=== PATIENT | female | born 1955 | race Caucasian/White ===

== ENCOUNTER 2023-04-19 13:13 | Outpatient (OUT) | payer MEDICARE, OTHER, SELFPAY ==
--- NOTE | 2023-04-19 13:18 | XR_ITS ---
The [address] [address] Patient Name: CHELI BARAKAT MRN: [id number] date: 1955 Sex: F Assigned Patient Location: [facility] Current Patient Location: [facility] Accession/Order Number: [id number] Exam Date: 04/19/2023 13:18 Report Date: 04/19/2023 15:08 At the request of: AMBER DOYLE Procedure: XR foot RT min 3V EXAM: XR foot RT min 3V HISTORY: RIGHT FOOT PAIN COMPARISON: 02/17/2020 TECHNIQUE: 3 views of the right foot were obtained. FINDINGS: There is a comminuted and slightly impacted fracture involving the distal aspect of the proximal phalanx of the great toe. Fracture lines extend to the articular surface with a significant gap of 3 mm in the articular surface. There is eccentric narrowing of the interphalangeal joint of the great toe. There is mild osseous healing present, and the fracture lines remain visible. Mild degenerative changes are seen at the first metatarsophalangeal joint. Remainder the joint spaces are relatively intact. An osteophyte arises from the plantar aspect of the calcaneus. IMPRESSION: There is a comminuted and slightly impacted fracture involving the distal aspect of the proximal phalanx of the great toe. Fracture lines and fracture fragments involve the articular surface. There is eccentric narrowing of the joint space, with evidence of mild osseous healing. Osseous healing is incomplete, indicating delayed osseous healing. The overall appearance of the foot is otherwise unchanged. Electronically authenticated by: SUNNY ROY Date: 04/19/2023 15:08
== END 2023-04-19 13:14 | disposition home or self-care (01) ==
LOC: RAD 13:13
PROVIDERS: Visit Provider Physician Assistant
DX: S92.411D Displaced fracture of proximal phalanx of right great toe, subsequent encounter for fracture with routine healing (principal)
CPT/HCPCS: 73630

== ENCOUNTER 2023-06-08 14:16 | Outpatient (OUT) | payer MEDICARE, OTHER, SELFPAY ==
--- NOTE | 2023-06-08 | XR_ITS ---
The [address] [address] Patient Name: CHELI BARAKAT MRN: [id number] date: 1955 Sex: F Assigned Patient Location: [facility] Current Patient Location: [facility] Accession/Order Number: [id number] Exam Date: 06/08/2023 14:30 Report Date: 06/08/2023 22:32 At the request of: SUNNY MENDEZ Procedure: XR foot LT min 3V PROCEDURE: XR foot LT min 3V COMPARISON: None. HISTORY: RIGHT FOOT PAIN FINDINGS: BONES:No acute fracture or dislocation. Contour deformity consistent with remote healed fracture head of the first proximal phalanx. Moderate enthesopathic spurring plantar calcaneus. Mild degenerative changes of the midfoot SOFT TISSUES:Negative. No visible soft tissue swelling. EFFUSION:None visible. OTHER: Negative. XR/XR foot LT min 3V IMPRESSION: Degenerative and remote posttraumatic changes Electronically authenticated by: JOANN BECKFORD Date: 06/08/2023 22:32
== END 2023-06-08 14:17 | disposition home or self-care (01) ==
LOC: RAD 14:16
PROVIDERS: Visit Provider Podiatrist Foot & Ankle Surgery
DX: M79.671 Pain in right foot (principal)
CPT/HCPCS: 73630

== ENCOUNTER 2023-07-20 07:26 | Outpatient (OUT) | payer MEDICARE, OTHER, SELFPAY ==
--- NOTE | 2023-07-20 | XR_ITS ---
The [address] [address] Patient Name: CHELI BARAKAT MRN: [id number] date: 1955 Sex: F Assigned Patient Location: [facility] Current Patient Location: [facility] Accession/Order Number: [id number] Exam Date: 07/20/2023 15:42 Report Date: 07/20/2023 17:12 At the request of: SUNNY MENDEZ Procedure: XR foot RT min 3V EXAM: XR foot RT min 3V HISTORY: RIGHT FOOT GREAT TOE FX COMPARISON: 04/19/2023 TECHNIQUE: 3 views of the right foot FINDINGS: Interval healing of proximal first phalangeal neck fracture with appropriate alignment. No acute fracture or dislocation. The soft tissue is unremarkable. There is a small heel spur. There is an os trigonum. XR/XR foot RT min 3V IMPRESSION: Interval healing of proximal first phalangeal neck fracture with appropriate alignment. Electronically authenticated by: FRANKLIN LOVE Date: 07/20/2023 17:12
== END 2023-07-20 07:27 | disposition home or self-care (01) ==
LOC: RAD 07-22 07:26
PROVIDERS: Visit Provider Podiatrist Foot & Ankle Surgery
DX: S92.411D Displaced fracture of proximal phalanx of right great toe, subsequent encounter for fracture with routine healing (principal)
CPT/HCPCS: 73630

== ENCOUNTER 2023-11-26 07:28 | Emergency (ER) | payer MEDICARE, OTHER, SELFPAY ==
[2023-11-26 07:32] VITALS: BP 140/81; PULSE 89; RESP 15; TEMP 36.4; O2SAT 98; BMI 40.2
--- NOTE | 2023-11-26 07:45 | XR_ITS ---
The [address] [address] Patient Name: CHELI BARAKAT MRN: [id number] date: 1955 Sex: F Assigned Patient Location: ER Current Patient Location: ED.MAIN Accession/Order Number: [id number] Exam Date: 11/26/2023 08:00 Report Date: 11/26/2023 09:07 At the request of: AVA PRASAD Procedure: XR shoulder RT min 2V PROCEDURE: XR shoulder RT min 2V DATE: 11/26/2023 8:00 AM EST COMPARISONS: None CLINICAL INDICATION: pain FINDINGS: There is no evidence of fractures or other acute osseous abnormalities. There is evidence of some bone demineralization. There is mild to moderate acromioclavicular degenerative change. There is no definite glenohumeral degenerative change. XR/XR shoulder RT min 2V IMPRESSION: Right shoulder radiographs show no evidence of acute abnormalities. Findings as discussed above. Electronically authenticated by: GEETHA MARIA Date: 11/26/2023 09:07
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
== END 2023-11-26 09:31 | disposition home or self-care (01) ==
PROVIDERS: Emergency Provider Emergency Medicine; PCP Internal Medicine
DX: S40.011A Contusion of right shoulder, initial encounter (principal); Y04.8XXA Assault by other bodily force, initial encounter
CPT/HCPCS: 73030; 99283

== ENCOUNTER 2024-01-12 12:08 | Outpatient (OUT) | payer MEDICARE, OTHER, SELFPAY ==
--- NOTE | 2024-01-12 | MR_ITS ---
The [address] [address] Patient Name: CHELI BARAKAT MRN: [id number] date: 1955 Sex: F Assigned Patient Location: MRI Current Patient Location: MRI Accession/Order Number: [id number] Exam Date: 01/12/2024 13:00 Report Date: 01/12/2024 14:04 At the request of: RISA FITZPATRICK Procedure: MR shoulder RT wo con MR shoulder RT wo con, 01/12/2024 1:00 PM EDT INDICATION: right shoulder pain M25.511 COMPARISON: Prior x-ray of the right shoulder dated 11/26/2023 TECHNIQUE: Multiplanar and multisequential MR images of the right shoulder were obtained without contrast. FINDINGS: There are moderate hypertrophic degenerative changes of AC joint. There is no os acromiale. No Hill-Sachs is noted. No acute fracture or dislocation is noted. The quadrilateral space and supraspinous notch are unremarkable. There is complete tear of the supraspinatus and infraspinatus with retraction of tendon to the level of AC joint and posterior to the glenoid respectively. T2 prolongation within the supraspinatus and infraspinatus muscle bulk likely due to contusion. The T2 prolongation within the insertional portions of subscapularis with 8 mm articular surface tear is noted. The long head of biceps shows intra-articular tendinosis The teres minor is unremarkable. Mild fatty muscle atrophy is supraspinatus and infraspinatus is noted. The labrum shows moderate degenerative changes. Mild degenerative changes of the glenohumeral joint are noted. There is increased intra articular joint effusion with extension to the subacromial subdeltoid bursa. MR/MR shoulder RT wo con IMPRESSION: Complete tear of the supraspinatus and infraspinatus with retraction of the tendons. Insertional tendinosis of subscapularis with high-grade articular surface partial tear. Tendinosis of the intra-articular portion of the long head of biceps. Electronically authenticated by: JONATHAN PRUETT Date: 01/12/2024 14:04
--- OUTSIDE RECORDS SUMMARY | 2024-01-12 12:16 | XMS_ITS | CCD ---
Author Organization [employer] Care Team Providers Care Locker Attendant Name Role Phone MD Lloyd Walsh Attending Provider DO Tirso Barney Primary Care Provider Lloyd Walsh Attending Unavailable Lloyd Walsh Admitting Unavailable Tirso Barney Primary Care Unavailable Gerson Ochoa Unavailable Lloyd Walsh Unavailable Tirso Barney Unavailable AMBER DOYLE Attending Unavailable AMBER DOYLE Admitting Unavailable ANALY, DR JOANN Mohr Consulting Unavailable AMARI, DR LORD Primary Care Unavailable AMBER DOYLE Consulting Unavailable AMARI, DR LORD Primary Care Unavailable BALL, DR LORD Attending Unavailable BALL, DR LORD Admitting Unavailable HAY ., DR CAMPOS Attending Unavailable HAY ., DR CAMPOS Admitting Unavailable BALL, DR LORD Primary Care Unavailable GRECHNY ., ROYCE PALMA Consulting Unavailabl e SHAVONNE ., DR CAMPOS Consulting Unavailable JULIO, GURPREET Consulting Unavailable SUNNY MENDEZ Attending Unavailable SUNNY MENDEZ Admitting Unavailable ANDREA, DR MAURILIO Masterson Consulting Unavailable AMARI, DR LORD Primary Care Unavailable ANDREA, SUNNY Armando Consulting Unavailable AMARI, DR LORD Primary Care Unavailable AMARI, DR LORD Consulting Unavailable AMARI, DR LORD Attending Unavailable BALL, DR LORD Admitting Unavailable ZIEBER, DR MAURILIO Masterson Consulting Unavailable AMARI, DR LORD Primary Care Unavailable AMARI, DR LORD Consulting Unavailable AMARI, DR LORD Attending Unavailable BALL, DR LORD Admitting Unavailable ANALY, DR JOANN Mohr Consulting Unavailable AMARI, DR LORD Consulting Unavailable AMARI, DR LORD Primary Care Unavailable AMARI, DR LORD Attending Unavailable BALL, DR LORD Admitting Unavailable WEST, DR JOANN Mohr Consulting Unavailable AMARI, DR LORD Attending Unavailable BALL, DR LORD Admitting Unavailable BALL, DR LORD Primary Care Unavailable WEST, DR JOANN Mohr Consulting Unavailable ANDREA, SUNNY Armando Attending Unavailable SUNNY MENDEZ Admitting Unavailable BALL, DR LORD Primary Care Unavailable SUNNY MENDEZ Consulting Unavailable AMARI, DR LORD Consulting Unavailable AMARI, DR LORD Admitting Unavailable AMARI, DR LORD Attending Unavailable AMARI, DR LORD Primary Care Unavailable Allergies Allergy Classification Reported Allergen(s) Allergy Type Date of Onset Reaction(s) Facility (3 sources) Esomeprazole Drug Allergy 3 Unknown [facility] Other (10 sources) Lisinopril Drug Allergy Unknown [facility] Other (10 sources) NexIUM *ULCER DRUGS/ANTISPASMO DICS/ANTICHOLINE RGIC Propensity to adverse reactions Unknown [facility] Other (3 sources) Allergies Reconciled Propensity to adverse reactions Unknown [facility] Other (3 sources) patient allergy list reviewed by nurse or physicia Propensity to adverse reactions Comment:Done [facility] Other Medications Current Medications Medication Drug Class(es) Dates Sig (Normalized) Sig (Original) acetaminophen 325 mg / HYDROcodone bitartrate 5 mg oral tablet (1 source) Opioid Agonist Start: 11-30-2023 take 1 tablet by mouth three times daily as needed for pain HYDROcodone-Jonh taminophen 5-325 MG 1 tablet Orally tid as needed for pain for 7 days Nov, Active cholecalciferol 1.25 mg oral capsule (11 sources) Vitamin D take 1 capsule by mouth every week Vitamin D3 1.25 MG (83856 UT) TAKE 1 CAPSULE BY MOUTH ONE TIME PER WEEK for 90 Active hydroCHLOROthiazide 12.5 mg / lisinopril 10 mg oral tablet (18 sources) Thiazide Diuretic, Angiotensin Converting Enzyme Inhibitor take 1 tablet by mouth once daily Lisinopril-hydr oCHLOROthiazide 10-12.5 MG TAKE 1 TABLET BY MOUTH EVERY DAY Active Lisinopril-hydro CHLOROthiazide 10-12.5 MG Oral Active phentermine hydrochloride 37.5 mg oral tablet (10 sources) Sympathomimetic Amine Anorectic Start: 09-12-2023 take 1 tablet by mouth once daily before breakfast Adipex-P 37.5 MG 1 tablet before breakfast Orally Once a day for 30 days Aug, Active Start: 08-04-2023 take 1 tablet by nidia th once daily before breakfast Adipex-P 37.5 MG 1 tablet before breakfast Orally Once a day for 30 days Jul, Active Start: 06-30-2023 take 1 tablet by nidia th once daily before breakfast Adipex-P 37.5 MG 1 tablet before breakfast Orally Once a day for 30 days Jun, Active Start: 06-21-2023 take 1 tablet by nidia once daily before breakfast Adipex-P 37.5 MG 1 tablet before breakfast Orally Once a day for 30 days start 05/16May, Active Start: 04-13-2023 take 1 tablet by nidia once daily before breakfast Adipex-P 37.5 MG 1 tablet before breakfast Orally Once a day for 30 days Mar, Active Start: 01-11-2023 take 1 tablet by nidia once daily before breakfast Adipex-P 37.5 MG 1 tablet before breakfast Orally Once a day for 30 days Dec, Active polysaccharide iron complex 150 mg oral capsule (20 sources) take 1 capsule by mouth every other day as needed Polysaccharide Iron Complex 150 MG TAKE 1 CAPSULE BY MOUTH EVERY OTHER DAY for 90 Not-Taking/PRN take 1 capsule by mo [facility] every twenty-four hours Ferrex 150 150 MG 1 capsule Orally Once a day Active traMADol hydrochloride 50 mg oral tablet (18 sources) Opioid Agonist Start: 10-10-2023 take 1 tablet by mouth every six hours as needed for pain traMADol HCl 50 MG 1 tablet Oral every 6 hours PRN pain start 10/10 w/ 2RF Sep, Active Start: 07-12-2023 take 1 tablet by nidia th every six hours as needed for pain traMADol HCl 50 MG 1 tablet Oral every 6 hours PRN pain for 30 days start 07/12 w/ 2rf Jun, Active Start: 04-04-2023 take 1 tablet by nidia th every six hours as needed for pain traMADol HCl 50 MG 1 tablet Oral every 6 hours PRN pain start 04/04, 2rf Mar, Active Start: 12-12-2022 take 1 tablet by nidia th every six hours as needed for pain traMADol HCl 50 MG 1 tablet Oral every 6 hours PRN pain p/u 12/12, start 12/14Nov, Active traMADol HCl 50 MG Oral for 30 Days Active Vitamin D3 (12 sources) Vitamin D3 Activ e Completed/Discontinued Medications Medication Drug Class(es) Dates Sig (Normalized) Sig (Original) clonazePAM 1 mg oral tablet (18 sources) Benzodiazepine clonazePAM 1 MG Oral for 30 Days Not-Taking/PRN diazePAM 10 mg oral tablet (18 sources) Benzodiazepine Start: 06-22-2022 diazePAM 10 MG Take 1 tablet 30 mins prior to MRI and 1 tablet at the time of MRI if needed Orally BID for 1 days May, Not-Taking/PRN lamoTRIgine 100 mg oral tablet (20 sources) Mood Stabilizer, Anti-epileptic Agent take 1 tablet by mouth every twenty-four hours LaMICtal 100 MG 1 tablet Orally Once a day Not-Taking/PRN venlafaxine 75 mg oral tablet (18 sources) Serotonin and Norepinephrine Reuptake Inhibitor take 1 tablet by mouth every twenty-four hours Venlafaxine HCl 75 MG 1 tablet with food Orally Once a day Not-Taking/PRN ziprasidone 20 mg oral capsule (18 sources) Atypical Antipsychotic take 1 capsule by mouth every twelve hours Geodon 20 MG 1 capsule with food Orally Twice a day Not-Taking/PRN zolpidem tartrate 12.5 mg extended release oral tablet (20 sources) gamma-Aminobutyric Acid-ergic Agonist take 1 tablet by mouth every twenty-four hours Ambien CR 12.5 MG 1 tablet at bedtime as needed Orally Once a day Not-Taking/PRN Problems Active Problems Problem Classification Problem Date Documented Da te Episodic/Chronic Anxiety disorders (3 sources) Generalized anxiety disorder; Translations: [Generalized anxiety disorder] Chronic Disorders of lipid metabolism (16 sources) Hypercholesterolemia ; Translations: [Pure hypercholesterolemia , unspecified] Onset: 10-28-2022 Chronic Esophageal disorders (13 sources) Gastro-esophageal reflux disease with esophagitis; Translations: [Gastroesophageal reflux disease with esophagitis without hemorrhage] Chronic Esophageal disorders (4 sources) Esophageal disorders; Translations: [Gastro-esophageal reflux disease with esophagitis, without bleeding] Essential hypertension (20 sources) Essential hypertension; Translations: [Essential (primary) hypertension] Onset: 10-22-2022 Chronic Fracture of lower limb (9 sources) Displaced fracture of proximal phalanx of right great toe, initial encounter for closed fracture; Translations: [Displaced fracture of proximal phalanx of right great toe, subsequent encounter for fracture with routine healing] Onset: 10-10-2022 Episodic Immunizations and screening for infectious disease (3 sources) Vaccination given; Translations: [Encounter for immunization] Episodic Miscellaneous mental health disorders (3 sources) Primary insomnia; Translations: [Primary insomnia] Chronic Mood disorders (20 sources) Recurrent major depression in remission; Translations: [Major depressive disorder, recurrent, in partial remission] Onset: 10-24-1959 Chronic Nutritional deficiencies (15 sources) Vitamin D deficiency; Translations: [Vitamin D deficiency, unspecified] Chronic Nutritional deficiencies (12 sources) Iron deficiency; Translations: [Iron deficiency] Episodic Osteoarthritis (3 sources) Idiopathic osteoarthritis; Translations: [Unilateral primary osteoarthritis, right knee] Onset: 01-19-2019 Chronic Osteoporosis (18 sources) Senile osteoporosis; Translations: [Age-related osteoporosis without current pathological fracture] Chronic Other aftercare (11 sources) H/O: high risk medication; Translations: [Other buttermaker continuous churn (current) drug therapy] Episodic Other aftercare (2 sources) Other buttermaker continuous churn (current) drug therapy; Translations: [OTH ARC AND GAS WELDER CURRENT DRUG THERAPY] Onset: 10-28-2022 Episodic Other aftercare (3 sources) Long-term current use of drug therapy; Translations: [Other buttermaker continuous churn (current) drug therapy] Episodic Other bone disease and musculoskeletal deformities (11 sources) Osteopenia; Translations: [Other specified disorders of bone density and structure, multiple sites] Episodic Other bone disease and musculoskeletal deformities (3 sources) Disorder of bone; Translations: [Other specified disorders of bone density and structure, multiple sites] Episodic Other bone disease and musculoskeletal deformities (1 source) Other specified disorders of bone density and structure, multiple sites; Translations: [Osteopenia of multiple sites] Episodic Other congenital anomalies (3 sources) Congenital spondylolysis of lumbosacral region; Translations: [Congenital spondylolysis, lumbosacral region] Onset: 01-23-2019 Chronic Other congenital anomalies (3 sources) Congenital anomaly of spine; Translations: [Other congenital malformations of spine, not associated with scoliosis] Onset: 02-28-2019 Chronic Other connective tissue disease (18 sources) Synovial cyst of lumbar spine; Translations: [Other bursal cyst, other site] Episodic Other connective tissue disease (6 sources) Other bursal cyst, other site; Translations: [Bursal cyst] Episodic Other connective tissue disease (4 sources) Pain in right foot; Translations: [PAIN IN RIGHT FOOT] Onset: 02-16-2023 Episodic Other connective tissue disease (3 sources) Pain in limb; Translations: [Pain in soft tissues of limb] Episodic Other gastrointestinal disorders (3 sources) Intestinal malabsorption; Translations: [Intestinal malabsorption, unspecified] Chronic Other gastrointestinal disorders (12 sources) History of bariatric surgical procedure; Translations: [Bariatric surgery status] Episodic Other gastrointestinal disorders (3 sources) Diarrhea; Translations: [Diarrhea, unspecified] Episodic Other injuries and conditions due to external causes (3 sources) History of fall; Translations: [History of falling] Episodic Other lower respiratory disease (3 sources) Chronic cough; Translations: [Chronic cough] Episodic Other nervous system disorders (18 sources) Chronic pain; Translations: [Other chronic pain] Chronic Other nervous system disorders (18 sources) Cervical myelopathy; Translations: [Disease of spinal cord, unspecified] Chronic Other nervous system disorders (2 sources) Other chronic pain Chronic Other nervous system disorders (12 sources) Meralgia paresthetica; Translations: [Meralgia paresthetica, right lower limb] Chronic Other nervous system disorders (1 source) Meralgia paresthetica, right lower limb Chronic Other nervous system disorders (11 sources) Paresthesia; Translations: [Paresthesia of skin] Episodic Other non-traumatic joint disorders (3 sources) Shoulder joint pain; Translations: [Pain in left shoulder] Episodic Other nutritional; endocrine; and metabolic disorders (12 sources) Morbid obesity; Translations: [Morbid (severe) obesity due to excess calories] Chronic Other nutritional; endocrine; and metabolic disorders (9 sources) Morbid (severe) obesity due to excess calories Chronic Other nutritional; endocrine; and metabolic disorders (11 sources) Severe obesity; Translations: [Morbid (severe) obesity due to excess calories] Chronic Other nutritional; endocrine; and metabolic disorders (14 sources) Body mass index 40+ - severely obese; Translations: [Body mass index (BMI) 40.0-44.9, adult] Onset: 02-16-2016 Chronic Other nutritional; endocrine; and metabolic disorders (4 sources) Body mass index (BMI) 40.0-44.9, adult Chronic Other nutritional; endocrine; and metabolic disorders (3 sources) Obesity; Translations: [Obesity, unspecified] Chronic Other nutritional; endocrine; and metabolic disorders (6 sources) Obese class II; Translations: [Body mass index 39.0-39.9, adult] Onset: 02-16-2016 Chronic Other screening for suspected conditions (not mental disorders or infectious disease) (6 sources) Encounter for screening mammogram for malignant neoplasm of breast; Translations: [ENC SCR MAMMO MALIG NEOPLASM BREAST] Onset: 10-21-2022 Episodic Other upper respiratory infections (6 sources) Acute maxillary sinusitis; Translations: [Acute maxillary sinusitis, unspecified] Episodic Residual codes; unclassified (3 sources) Postmenopausal state; Translations: [Asymptomatic menopausal state] Episodic Spondylosis; intervertebral disc disorders; other back problems (20 sources) Lumbosacral spondylosis without myelopathy; Translations: [Other spondylosis with radiculopathy, lumbar region] Onset: 03-18-2022 Chronic Spondylosis; intervertebral disc disorders; other back problems (20 sources) Radiculopathy, lumbar region; Translations: [Low back pain] Onset: 04-21-2015 Resolved: 05-07-2022 Episodic Sprains and strains (18 sources) Strain of biceps brachii muscle and/or tendon; Translations: [Strain of muscle, fascia and tendon of other parts of biceps, left arm, initial encounter] Onset: 02-06-2018 Episodic Systemic lupus erythematosus and connective tissue disorders (15 sources) Sjogren's syndrome; Translations: [Sicca syndrome with keratoconjunctivitis ] Chronic Unclassified (4 sources) LOW BACK PAIN, UNSPECIFIED; Translations: [LOW BACK PAIN, UNSPECIFIED] Onset: 03-18-2022 Unclassified (3 sources) Dietary management surveillance; Translations: [Dietary surveillance and counseling] Onset: 02-06-2018 Past or Other Problems Problem Classification Problem Date Documented Da te Episodic/Chronic E Codes: Fall (3 sources) Accidental fall ; Translations: [Fall (on)(from) sidewalk curb, initial encounter] Onset: 01-20-2018 Episodic E Codes: Overexertion (1 source) Other slipping, tripping and stumbling without falling, initial encounter; Translations: [OTH SLIP TRIP STUMBL NO FALL INIT] Onset: 10-10-2022 Episodic Genitourinary symptoms and ill-defined conditions (6 sources) Dysuria; Translations: [Dysuria] Onset: 09-11-2014 Episodic Malaise and fatigue (3 sources) Malaise and fatigue; Translations: [Other malaise and fatigue] Onset: 12-10-2015 Episodic Nonspecific chest pain (3 sources) Chest pain; Translations: [Chest pain, unspecified] Onset: 10-23-2015 Episodic Other connective tissue disease (3 sources) Pain in right toe(s); Translations: [PAIN IN RIGHT TOES] Onset: 10-06-2022 Episodic Other gastrointestinal disorders (3 sources) Abnormal feces; Translations: [Other fecal abnormalities] Resolved: 09-27-2022 Episodic Other lower respiratory disease (3 sources) Dyspnea; Translations: [Other forms of dyspnea] Onset: 10-23-2015 Episodic Other non-traumatic joint disorders (3 sources) Pain in right hip joint; Translations: [Pain in right hip] Onset: 10-18-2018 Episodic Other non-traumatic joint disorders (3 sources) Arthralgia of the lower leg; Translations: [Pain in joint, lower leg] Onset: 02-19-2019 Episodic Other non-traumatic joint disorders (3 sources) Hand joint pain; Translations: [Pain in joint, hand] Onset: 07-24-2018 Episodic Other nutritional; endocrine; and metabolic disorders (3 sources) Excessive thirst; Translations: [Polydipsia] Onset: 09-11-2014 Episodic Other nutritional; endocrine; and metabolic disorders (3 sources) Abnormal weight gain; Translations: [Abnormal weight gain] Onset: 09-11-2014 Episodic Residual codes; unclassified (1 source) Family history of malignant neoplasm of bladder; Translations: [FAM HX MALIGNANT NEOPLASM BLADDER] Onset: 10-28-2022 Episodic Residual codes; unclassified (3 sources) Insomnia; Translations: [Insomnia, unspecified] Onset: 09-11-2014 Episodic Superficial injury; contusion (6 sources) Contusion of right hand; Translations: [Contusion of right hand, initial encounter] Onset: 01-20-2018 Episodic Unclassified (1 source) LOW BACK PAIN, UNSPECIFIED; Translations: [LOW BACK PAIN, UNSPECIFIED] Onset: 03-16-2022 Unclassified (3 sources) Other specified cough; Translations: [Other specified cough] Resolved: 01-12-2022 Results Test Name Value Interpretation Reference Range Facil ity CBC AUTO DIFFon 12-30-2022 BASO # 0.1 103/ul Normal 0.0-0.1 [facility] Comment on above: Performed By: #### C BC #### [facility] [address] [place] [address] Dr. Shea Howell Basophils/100 WBC (Bld) 1.0 % Normal 0.2-2.0 [facility] Comment on above: Performed By: #### C BC #### [facility] [address] [place] [address] Dr. Shea Howell EO # 0.1 103/ul Normal 0.0-0.7 [facility] Comment on above: Performed By: #### C BC #### [facility] [address] [place] [address] Dr. Shea Howell Eosinophils/100 WBC (Bld) 1.2 % Normal 0.9-7.0 [facility] Comment on above: Performed By: #### C BC #### [facility] [address] [place] [address] Dr. Shea Howell Erythrocyte distribution width (RBC) [Ratio] 13.5 % Normal 11.0-15.0 [facility] Comment on above: Performed By: #### C BC #### [facility] [address] [place] [address] Dr. Shea Howell Hematocrit (Bld) [Volume fraction] 41.3 % Normal 36.0-48.0 [facility] Comment on above: Performed By: #### C BC #### [facility] [address] [place] [address] Dr. Shea Howell Hemoglobin (Bld) [Mass/Vol] 13.9 g/dL Normal 12.0-16.0 [facility] Comment on above: Performed By: #### C BC #### [facility] [address] [place] [address] Dr. Shea Howell IG # 0.02 10e3/ul Normal 0.00-0.03 [facility] Comment on above: Performed By: #### C BC #### [facility] [address] [place] [address] Dr. Shea Howell IG % 0.2 % Normal 0.0-0.5 [facility] Comment on above: Performed By: #### C BC #### [facility] [address] [place] [address] Dr. Shea Howell LYMPH # 1.8 103/ul Normal 1.2-3.8 [facility] Comment on above: Performed By: #### C BC #### [facility] [address] [place] [address] Dr. Shea Howell Lymphocytes/100 WBC (Bld) 21.4 % Normal 20.5-60.0 [facility] Comment on above: Performed By: #### C BC #### [facility] [address] [place] [address] Dr. Shea Howell MANUAL DIFF REQ NO Normal [facility] Comment on above: Performed By: #### C BC #### [facility] [address] [place] [address] Dr. Shea Howell MCH (RBC) [Entitic mass] 33.2 pg Normal 26.7-34.0 [facility] Comment on above: Performed By: #### C BC #### [facility] [address] [place] [address] Dr. Shea Howell MCHC (RBC) [Mass/Vol] 33.7 g/dL Normal 29.9-35.2 [facility] Comment on above: Performed By: #### C BC #### [facility] [address] [place] [address] Dr. Shea Howell MCV (RBC) [Entitic vol] 98.6 fL Normal 81.0-99.0 [facility] Comment on above: Performed By: #### C BC #### [facility] [address] [place] [address] Dr. Shea Howell MONO # 0.8 103/ul Normal 0.3-0.8 [facility] Comment on above: Performed By: #### C BC #### [facility] [address] [place] [address] Dr. Shea Howell Monocytes/100 WBC (Bld) 9.3 % Normal 1.7-12.0 [facility] Comment on above: Performed By: #### C BC #### [facility] [address] [address] [address] Shea Howell NEUT # 5.6 103/ul Normal 1.4-6.5 [facility] Comment on above: Performed By: #### C BC #### [facility] [address] [address] [address] Shea Howell Neutrophils/100 WBC (Bld) 66.9 % Normal 43.0-75.0 [facility] Comment on above: Performed By: #### C BC #### [facility] [address] [address] [address] Shea Howell Platelet mean volume (Bld) [Entitic vol] 9.2 fL Critically low 9.5-13.5 [facility] Comment on above: Performed By: #### C BC #### [facility] [address] [place] [address] Dr. Shea Howell PLT 353 103/ul Normal 150-450 [facility] Comment on above: Performed By: #### C BC #### [facility] [address] [place] [address] Dr. Shea Howell RBC 4.19 106/ul Critically low 4.20-5.40 [facility] Comment on above: Performed By: #### C BC #### [facility] [address] [place] [address] Dr. Shea Howell WBC 8.4 103/ul Normal 4.0-11.0 [facility] Comment on above: Performed By: #### C BC #### [facility] [address] [place] [address] Dr. Shea Howell LIPID PROFILEon 10-22-2022 CHOL-HDL RATIO NORM SEE BELOW Normal [facility] Comment on above: Result Comment: 3.3 - 4.4 LOW RISK 4.4 - 7.1 AVERAGE RISK 7.1 - 11.0 MODERATE RISK >11.0 HIGH RISK Performed By: #### B MP, LIPID #### [facility] [address] [place] [address] Dr. Shea Howell Cholesterol [Mass/Vol] 224 mg/dL Critically high <=200 [facility] Comment on above: Performed By: #### B MP, LIPID #### [facility] [address] [address] [address] Shea Howell Cholesterol in HDL [Mass/Vol] 78 mg/dL Critically high 40-60 [facility] Comment on above: Performed By: #### B MP, LIPID #### [facility] [address] [address] [address] Shea Howell Cholesterol in LDL [Mass/Vol] 109.8 mg/dL Normal [facility] Comment on above: Performed By: #### B MP, LIPID #### [facility] [address] [address] [address] Shea Howell Cholesterol.total/ Cholesterol in HDL [Mass ratio] 2.9 {ratio} Normal [facility] Comment on above: Performed By: #### B MP, LIPID #### [facility] [address] [address] [address] Shea Howell HDL NORMAL > or = 60 mg/dl - LO W CARDIOVASCULAR RISK <40 mg/dl - HIGH CARDIOVASCULAR RISK Normal [facility] Comment on above: Performed By: #### B MP, LIPID #### [facility] [address] [address] [address] Shea Howell LDL CALC NORMAL SEE BELOW Normal [facility] Comment on above: Result Comment: <100 mg/dl OPTIMAL 100 - 129 mg/dl NEAR OR ABOVE OPTIMAL 130 - 159 mg/dl BORDERLINE HIGH 160 - 189 mg/dl HIGH >190 mg/dl VERY HIGH Performed By: #### B MP, LIPID #### [facility] [address] [address] [address] Shea Howell Triglyceride [Mass/Vol] 181 mg/dL Critically high <=150 [facility] Comment on above: Performed By: #### B MP, LIPID #### [facility] [address] [address] [address] Shea Howell VLDL CALC 36.2 mg/dL Normal [facility] Comment on above: Performed By: #### B MP, LIPID #### [facility] [address] [address] [address] Shea Howell PROF CHEM 8 (BAS METB)on Anion gap [Moles/Vol] 14.7 mmol/L Normal [facility] Comment on above: Performed By: #### B MP, LIPID #### [facility] [address] [place] [address] Dr. Shea Howell Calcium [Mass/Vol] 9.4 mg/dL Normal 8.5-10.1 [facility] Comment on above: Performed By: #### B MP, LIPID #### [facility] [address] [place] [address] Dr. Shea Howell Chloride [Moles/Vol] 95 mmol/L Critically low 98-107 [facility] Comment on above: Performed By: #### B MP, LIPID #### [facility] [address] [place] [address] Dr. Shea Howell CO2 [Moles/Vol] 27.8 mmol/L Normal 21.0-32.0 [facility] Comment on above: Performed By: #### B MP, LIPID #### [facility] [address] [place] [address] Dr. Shea Howell Creatinine [Mass/Vol] 0.77 mg/dL Normal 0.55-1.02 [facility] Comment on above: Performed By: #### B MP, LIPID #### [facility] [address] [place] [address] Dr. Shea Howell EGFR-AF TOGOLESE >60 Normal >=60 [facility] Comment on above: Performed By: #### B MP, LIPID #### [facility] [address] [place] [address] Dr. Shea Howell EGFR-NON AF TOGOLESE >60 Normal >=60 [facility] Comment on above: Performed By: #### B MP, LIPID #### [facility] [address] [place] [address] Dr. Shea Howell Glucose [Mass/Vol] 111 mg/dL Critically high 74-106 [facility] Comment on above: Performed By: #### B MP, LIPID #### [facility] [address] [address] [address] Shea Howell Potassium [Moles/Vol] 4.5 mmol/L Normal 3.5-5.1 [facility] Comment on above: Performed By: #### B MP, LIPID #### [facility] [address] [address] [address] Shea Howell Sodium [Moles/Vol] 133 mmol/L Critically low 136-145 [facility] Comment on above: Performed By: #### B MP, LIPID #### [facility] [address] [address] [address] Shea Howell Urea nitrogen [Mass/Vol] 10.0 mg/dL Normal 7.0-18.0 [facility] Comment on above: Performed By: #### B MP, LIPID #### [facility] [address] [address] [address] Shea Howell Urea nitrogen/Creatinin e [Mass ratio] 13.0 mg/mg Normal [facility] Comment on above: Performed By: #### B MP, LIPID #### [facility] [address] [address] [address] Shea Howell MG MAMM SCREEN 3D IRMA CADon 10-21-2022 MG MAMM SCREEN 3D IRMA CAD Patient: EMILY SCHMITT Exam Date: 10/21/2022 : 1955 Gender:F Ordering : DR TIRSO BARNEY D.O. Admission #: [id number] Family : Order #: [id number] CLICK HERE TO VIEW EXAM RADIOLOGY REPORT PROCEDURE: MAMMOGRAM SCREENING 3D BILATERAL CAD COMPARISON: MG MAMM SCREEN IRMA W CAD, 10/04/2019. MG MAMM SCREEN 3D IRMA CAD, 07/31/2021. INDICATIONS: Screening for malignant neoplasm of breast Calculator Name NCI Breast Cancer Risk Assessment Tool 5 Year Breast Cancer Risk 1.60% Lifetime Breast Cancer Risk 5.90% Personal Breast Cancer No Personal Ovarian Cancer No Treatments None Family Cancers Father with bladder cancer at age 58. LOCATION: [facility] BREAST COMPOSITION: Scattered areas fibroglandular density. FINDINGS: DIAGNOSTIC CATEGORY 1--NEGATIVE. NO CHANGE FROM COMPARISON ASSESSMENT. Scattered benign-appearing lymph nodes are present. RIGHT BREAST: No significant suspicious finding. LEFT BREAST: No significant suspicious finding. RECOMMENDATIONS: ROUTINE MAMMOGRAM AND CLINICAL EVALUATION IN 12 MONTHS. PLEASE NOTE: A NORMAL MAMMOGRAM DOES NOT EXCLUDE THE POSSIBILITY OF BREAST CANCER. A CLINICALLY SUSPICIOUS PALPABLE LUMP SHOULD BE BIOPSIED. Dictated by: Joann Beckford MD on 10/22/2022 at 07:14 Approved by: Joann Beckford MD on 10/22/2022 at 07:16 Normal [facility] XR FOOT RT MIN 3 VIEWSon XR FOOT RT MIN 3 VIEWS EXAM: XR FOOT RT MIN 3 VIEWS HISTORY: Bone injury COMPARISON: None. TECHNIQUE: 3 views of the right foot are performed. FINDINGS: There is an acute fracture involving the distal aspect of the proximal first phalanx. The fracture is comminuted and mildly displaced, and extends to the articular surface of the interphalangeal joint. There is associated soft tissue swelling. IMPRESSION: Comminuted, mildly displaced intra-articular fracture involving the distal aspect of the proximal first phalanx. Electronically authenticated by: GURPREET KIM Date: 2022-10-06 18:26 Normal [facility] XR lumbar spine 6V w bending on 07-05-2022 XR lumbar spine 6V w bending [facility] [place] [address] [place] [address] XRay Report Signed Patient: Emily Schmitt MR#: [id number] : 1955 Acct:[id number] Age/Sex: 67 / F ADM Date: 07/05/22 Loc: [facility] Room: Type: [facility] Attending Dr: Lloyd Walsh MD Copies to: Lloyd Walsh MD Ordering Provider: Lloyd Walsh MD Date of Service: 07/05/22 XR/XR lumbar spine 6V w bending: G95.9 XR lumbar spine 6V w bending 07/05/2022 2:05 PM SIGNS AND SYMPTOMS: Low back pain, right-sided radiculopathy PROTOCOLS: Frontal, lateral, oblique, and flexion-extension views of the lumbar spine COMPARISON: 03/16/2022 FINDINGS: There is straightening of the normal lumbar lordosis. There is no evidence of fracture or subluxation. Flexion and extension view show no pathologic movement. There is mild vertebral disc height loss throughout. There is no fracture or destructive lesion. There is mild vertebral disc height loss throughout, greatest at L2-L3. This has progressed slightly when compared to the prior exam. The sacrum and sacroiliac joints are normal. There is evidence of prior cholecystectomy. Vascular calcifications are present in the pelvis. XR/XR lumbar spine 6V w bending IMPRESSION: There is straightening of the normal lumbar lordosis. This is new when compared prior exam and may be secondary to patient positioning or muscle spasm. Mild intervertebral disc height loss is noted, greatest at L2-3 showing slight interval progression. No fracture, subluxation, or pathologic movement. Impression dictated by: Brian Choe M.D.07/05/2022 7:29 PM Dictation Location: [address] [address] Transcribed By: [facility] 07/05/221928 Dictated By: Brian Choe II, MD 07/05/221926 Signed By: 07/05/221928 Normal [facility] XR pre/post mri xrayon 07-05 XR pre/post mri xray [facility] [place] [address] [place] [address] MRI Report Signed Patient: Emily Schmitt MR#: [id number] : 1955 Acct:[id number] Age/Sex: 67 / F ADM Date: 07/05/22 Loc: [facility] Room: Type: [facility] Attending Dr: Lloyd Walsh MD Copies to: Lloyd Walsh MD Ordering Provider: Lloyd Walsh MD Date of Service: 07/05/22 MR/MR cervical spine wo con: G95.9 ([id number]) XR/XR pre/post mri xray: G95.9 MR cervical spine wo con, XR pre/post mri xray 07/05/2022 12:56 PM SIGNS AND SYMPTOMS: Posterior neck pain radiating into arms bilaterally. PROTOCOL: Multiplanar multisequence MR images of the cervical spine were obtained without contrast. Lateral and bilateral oblique radiographs of the cervical spine. COMPARISON: None. FINDINGS: Radiographs of the cervical spine: There is straightening of the normal cervical lordosis. There is preservation of vertebral body heights. Moderate disc height loss is noted in the midthoracic spine. There is no fracture or subluxation. Facet and uncovertebral joint degenerative changes contribute to mild neural foraminal narrowing bilaterally at multiple levels. MRI cervical spine: There is straightening of the normal cervical lordosis. There is preservation of vertebral body heights. There is moderate disc height loss at C4-C5 and C5-C6. There is mild disc height loss at C6-C7. The marrow signal is within normal limits. The cord is normal in signal. No epidural or paraspinous fluid collection is appreciated. The visualized paraspinous soft tissues are within normal limits. The prevertebral soft tissues are within normal limits. At C2-C3: There is a normal disc, central canal, and neural foramen. At C3-C4: There is a normal disc, central canal, and neural foramen. At C4-C5: Uncovertebral joint spurring is noted with facet hypertrophy. There is minimal neural foraminal stenosis bilaterally. At C5-C6: There is a broad-based disc bulge with uncovertebral joint spurring and facet hypertrophy. There is mild spinal canal narrowing without significant neural foraminal narrowing. At C6-C7: There is a broad-based disc bulge with facet degenerative change pubic mild bilateral neural foraminal narrowing with moderate spinal canal stenosis. At C7-T1: There is a normal disc, central canal, and neural foramen. MR/MR cervical spine wo con IMPRESSION: There is straightening of the normal cervical lordosis. At C4-C5: Uncovertebral joint spurring is noted with facet hypertrophy. There is minimal neural foraminal stenosis bilaterally. At C5-C6: There is a broad-based disc bulge with uncovertebral joint spurring and facet hypertrophy. There is mild spinal canal narrowing without significant neural foraminal narrowing. At C6-C7: There is a broad-based disc bulge with facet degenerative change pubic mild bilateral neural foraminal narrowing with moderate spinal canal stenosis. Impression dictated by: Brian Choe M.D.07/05/2022 6:57 PM Dictation Location: [place] [address] Transcribed By: [facility] 07/05/221856 Dictated By: Brian Choe II, MD 07/05/22 739 Signed By: 07/05/221856 [facility] MRI LSPINE WO CONon 05-07-20 MRI [facility] CON EXAMINATION: MRI [facility] CON HISTORY: Lumbosacral spondylosis with radiculopathy COMPARISON: 01/31/2019 TECHNIQUE: A variety of imaging planes and parameters were utilized for visualization of suspected pathology. FINDINGS: For the purposes of numbering, sagittal T2 image # 7 extends from the T10-T11 vertebral body superiorly to the S2-S3 level inferiorly. PARASPINAL AREA: Normal with no visible mass. BONES: Normal alignment with no acute fracture or spondylolisthesis. Mild degenerative spondylosis. Area of increased T1 and T2 signal in the L3 vertebral body, a hemangioma is favored. CORD/CAUDA EQUINA: Normal caliber, contour, and signal intensity. DISC LEVELS: 12-L1: No significant disc/facet abnormality, spinal stenosis, or foraminal stenosis. L1-L2: No significant disc/facet abnormality, spinal stenosis, or foraminal stenosis. L2-L3: No significant disc/facet abnormality, spinal stenosis, or foraminal stenosis. L3-L4: No significant disc/facet abnormality, spinal stenosis, or foraminal stenosis. L4-L5: No disc bulge or herniation. 7.5 x 6.4 x 10.4 mm circumscribed fluid signal is noted along the right inferior facet joint best seen on sagittal image 8, axial image 25 L5-S1: No significant disc/facet abnormality, spinal stenosis, or foraminal stenosis. IMPRESSION: Circumscribed fluid signal lesion extending from the right L4-L5 facet significantly deforming the adjacent thecal sac and displacing nerve roots to the left. I favor a synovial cyst Electronically authenticated by: JOANN BECKFORD Date: 2022-05-06 22:24 Normal [facility] XR LSPINE 2_3 VIEWSon 2021 XR LSPINE 2_3 VIEWS EXAMINATION: XR LSPINE 2_3 VIEWS HISTORY: Low back pain , acute; no known injury COMPARISON: XR lumbar spine 10/19/2018 FINDINGS: BONES: Slight right convex curvature of lumbar spine. No fracture spondylolisthesis. Mild degenerative facet arthropathy L4-5. DISC SPACES: Slight narrowing L3-4, L5-S1. PARASPINOUS: Negative. No paraspinous abnormality is seen. OTHER: Negative. IMPRESSION: 1. No acute bone abnormality. 2. Multilevel mild degenerative changes; slightly progressed compared to 2018. Electronically authenticated by: MAURILIO MENDEZ Date: 2022-03-16 15:35 Normal [facility] PROGRESSon 10-31-2018 Protein mass conc HNO ID: [id number]: Jayda Meyer RsrchService: (none)Author Type: (none)Type: Progress NotesFiled: 10/31/2018 4:23 PMNote Text:Came as the Caregiver for the [facility] FINE Study [id number] IRB [id number].Details of study are under her 's chart. Normal [facility] Vital Signs Date Time Vital Sign Value Performing Clinician Facility 11-01-2023 13:30-0500 Body height 160.02 cm Tirso Ball Other [facility] Other 11-01-2023 13:30-0500 Body mass index (BMI) [Ratio] 39.36 kg/m2 Tirso Ball Other [facility] Other 11-01-2023 13:30-0500 Body weight 100.79 kg Tirso Ball Other [facility] Other 11-01-2023 13:30-0500 Diastolic blood pressure 75 mm[Hg] Tirso Ball Other [facility] Other 11-01-2023 13:30-0500 Respiratory rate 12 /min Tirso Ball Other [facility] Other 11-01-2023 13:30-0500 Systolic blood pressure 112 mm[Hg] Tirso Ball Other [facility] Other 09-12-2023 10:12-0500 Body height 160.02 cm Tirso Ball Other [facility] Other 09-12-2023 10:12-0500 Body mass index (BMI) [Ratio] 39.32 kg/m2 Tirso Ball Other [facility] Other 09-12-2023 10:12-0500 Body weight 100.7 kg Tirso Ball Other [facility] Other 09-12-2023 10:12-0500 Diastolic blood pressure 80 mm[Hg] Tirso Ball Other [facility] Other 09-12-2023 10:12-0500 Systolic blood pressure 129 mm[Hg] Tirso Ball Other [facility] Other 08-04-2023 12:23-0400 Body height 160.02 cm Tirso Ball Other [facility] Other 08-04-2023 12:23-0400 Body mass index (BMI) [Ratio] 39.5 kg/m2 Tirso Ball Other [facility] Other 08-04-2023 12:23-0400 Body weight 101.15 kg Tirso Ball Other [facility] Other 08-04-2023 12:23-0400 Diastolic blood pressure 54 mm[Hg] Tirso Ball Other [facility] Other 08-04-2023 12:23-0400 Systolic blood pressure 98 mm[Hg] Tirso Ball Other [facility] Other 07-15-2023 14:30-0400 Body height 160.02 cm Tirso Ball Other [facility] Other 07-15-2023 14:30-0400 Body mass index (BMI) [Ratio] 40.03 kg/m2 Tirso Ball Other [facility] Other 07-15-2023 14:30-0400 Body weight 102.51 kg Tirso Ball Other [facility] Other 07-15-2023 14:30-0400 Diastolic blood pressure 79 mm[Hg] Tirso Ball Other [facility] Other 07-15-2023 14:30-0400 Respiratory rate 12 /min Tirso Ball Other [facility] Other 07-15-2023 14:30-0400 Systolic blood pressure 116 mm[Hg] Tirso Ball Other [facility] Other 04-13-2023 14:45-0400 Body height 160.02 cm Tirso Ball Other [facility] Other 04-13-2023 14:45-0400 Body mass index (BMI) [Ratio] 42.76 kg/m2 Tirso Ball Other [facility] Other 04-13-2023 14:45-0400 Body weight 109.5 kg Tirso Ball Other [facility] Other 04-13-2023 14:45-0400 Diastolic blood pressure 76 mm[Hg] Tirso Ball Other [facility] Other 04-13-2023 14:45-0400 Respiratory rate 12 /min Tirso Ball Other [facility] Other 04-13-2023 14:45-0400 Systolic blood pressure 118 mm[Hg] Tirso Ball Other [facility] Other 01-11-2023 15:00-0400 Body height 160.02 cm Tirso Ball Other [facility] Other 01-11-2023 15:00-0400 Body mass index (BMI) [Ratio] 45.02 kg/m2 Tirso Ball Other [facility] Other 01-11-2023 15:00-0400 Body weight 115.31 kg Tirso Ball Other [facility] Other 01-11-2023 15:00-0400 Diastolic blood pressure 76 mm[Hg] Tirso Ball Other [facility] Other 01-11-2023 15:00-0400 Respiratory rate 12 /min Tirso Ball Other [facility] Other 01-11-2023 15:00-0400 Systolic blood pressure 122 mm[Hg] Tirso Ball Other [facility] Other 08-19-2022 12:20-0400 Body height 160.02 cm Lloyd Walsh Other [facility] Other 08-19-2022 12:20-0400 Body mass index (BMI) [Ratio] 42.16 kg/m2 Lloyd Walsh Other [facility] Other 08-19-2022 12:20-0400 Body weight 107.96 kg Lloyd Walsh Other [facility] Other 07-13-2022 17:00-0400 Body height 160.02 cm Gerson Ochoa Other [facility] Other 07-13-2022 17:00-0400 Body mass index (BMI) [Ratio] 42.16 kg/m2 Gerson Ochoa Other [facility] Other 07-13-2022 17:00-0400 Body weight 107.96 kg Gerson Ochoa Other [facility] Other Encounters Encounter Date Encounter Type Care Provider Facility Start: 11-01-2023 End: 11-01-2023 ambulatory Tirso Ball Other [facility] Other Start: 11-01-2023 Patient encounter procedure Tirso Barney [facility] Start: 10-10-2023 End: 10-10-2023 ambulatory Tirso Ball Other [facility] Other Start: 10-10-2023 Telephone encounter Tirso Ball [facility] Start: 09-12-2023 End: 09-12-2023 ambulatory Itrso Ball Other [facility] Other Start: 09-12-2023 Telephone encounter Tirso Ball [facility] Start: 08-04-2023 End: 08-04-2023 ambulatory Tirso Ball Other [facility] Other Start: 08-04-2023 Telephone encounter Tirso Ball [facility] Start: 07-15-2023 End: 07-15-2023 ambulatory Tirso Ball Other [facility] Other Start: 07-15-2023 Office outpatient vi sit 15 minutes Tirso Ball [facility] Start: 07-12-2023 End: 07-12-2023 ambulatory Tirso Ball Other [facility] Other Start: 07-12-2023 Telephone encounter Tirso Ball [facility] Start: 06-21-2023 End: 06-21-2023 ambulatory Tirso Ball Other [facility] Other Start: 06-21-2023 Telephone encounter Tirso Ball [facility] Start: 06-20-2023 End: 06-20-2023 ambulatory Tirso Ball Other [facility] Other Start: 06-20-2023 Telephone encounter Tirso Ball [facility] Start: 04-13-2023 End: 04-13-2023 ambulatory Tirso Ball Other [facility] Other Start: 04-13-2023 Office outpatient vi sit 15 minutes Tirso Barney [facility] Start: 02-16-2023 End: 02-17-2023 ambulatory SUNNY MENDEZ Facility:[facility] Start: 01-11-2023 End: 01-11-2023 ambulatory Tirso Barney Other [facility] Other Start: 01-11-2023 Office outpatient vi sit 15 minutes Tirso Barney [facility] Start: 01-06-2023 End: 01-07-2023 ambulatory AMBER DOYLE Facility:[facility] Start: 12-12-2022 End: 12-12-2022 ambulatory Tirso Barney Other [facility] Other Start: 12-12-2022 Telephone encounter Tirso Barney [facility] Start: 11-26-2022 End: 11-27-[address] JOANN BECKFORD Facility:[facility] Start: 10-22-2022 End: 10-23-[address] TIRSO BARNEY Facility:[facility] Start: 10-21-2022 End: 10-22-[address] TIRSO BARNEY Facility:[facility] Start: 10-13-[address] TIRSO BARNEY Facili ty:[facility] Start: 10-06-2022 End: 10-06-[address] BETH MARVIN . Facility:[facility] Start: 09-27-2022 Adult health examination Tirso Barney Other [facility] Other Start: 08-19-2022 End: 08-19-2022 ambulatory Lloyd Walsh Other [facility] Other Start: 08-19-2022 Office outpatient vi sit 15 minutes Lloyd Walsh [facility] Start: 08-05-2022 End: 08-05-2022 ambulatory Gerson Ochoa Other [facility] Other Start: 08-05-2022 Office outpatient vi sit 15 minutes Gerson Ochoa [facility] [place] Start: 07-26-2022 (Procedure) Short Gerson Euniceramses [facility] Start: 07-26-2022 End: 07-26-2022 ambulatory Gerson Ochoa Other [facility] Other Start: 07-15-2022 End: 07-15-2022 ambulatory Gerson Ochoa Other [facility] Other Start: 07-15-2022 Telephone encounter Gerson ALEX [facility] Start: 07-13-2022 End: 07-13-2022 ambulatory Gerson Gabriela Other [facility] Other Start: 07-13-2022 Office outpatient ne w 45 minutes Gerson Ochoa [facility] [place] Start: 07-05-2022 End: 07-05-2022 ambulatory Lloyd Walsh Facility:[facility] Start: 07-05-2022 End: 07-05-2022 Patient encounter procedure MD Lloyd Walsh Work Phone: [facility] [address] Start: 05-06-2022 End: 05-07-[address] TIRSO BARNEY Facility:[facility] Start: 03-24-2022 End: 04-22-[address] TIRSO BARNEY Facility:[facility] Start: 03-16-2022 End: 03-17-[address] TIRSO BARNEY Facility:[facility] Start: 10-31-2018 End: 10-31-2018 [facility] Procedures Date Procedure Procedure Detail Performing Clinician Start: 07-05-2022 X-ray of lumbar spin e, six views including bending views MD Lloyd Walsh Work Phone: Start: 07-05-2022 XR pre/post mri xray MD Lloyd Walsh Work Phone: Start: 07-05-2022 MRI of cervical spin e without contrast MD Lloyd Walsh Work Phone: Start: 12-15-2016 Screening mammography B semaj Barney Other Screening for malign ant neoplasm of breast Tirso Barney Other Immunizations Immunization Date Immunization Notes Care Provider Fa daiana 07-15-2023 influenza, high dose seasonal, preservative-free Tirso Barney Other [facility] Other 09-27-2022 Prevnar 20 Tirso Barney Other [facility] Other 09-01-2021 influenza virus vaccine, split virus (incl. purified surface antigen) Tirso Barney Other [facility] Other 07-01-2020 influenza virus vaccine, split virus (incl. purified surface antigen) Tirso Barney Other [facility] Other 08-05-2018 influenza virus vaccine, split virus (incl. purified surface antigen) Tirso Barney Other [facility] Other pneumococcal Conjuga te, unspecified formulation; Translations: [Need for prophylactic vaccination against Streptococcus pneumoniae (pneumococcus)] Tirso Barney Other [facility] Other Payers Date Payer Category Payer Self-pay 1958 Medicare [id number] 1958 Unknown [id number] 1955 Unknown [id number] .16.84 [id number] 1955 Unknown [id number] .16.84 [id number] 1955 Unknown [id number] .16.84 [id number] 1955 Unknown [id number] 2.16.84 0.1.193525.3.579.2.593 1955 Unknown [id number] 2.16.84 0.1.228614.3.579.2.593 1955 Unknown [id number] 2.16.84 0.1.233697.3.579.2.593 1955 Unknown [id number] 2.16.84 0.1.178042.3.579.2.593 1955 Unknown [id number] 2.16.84 0.1.258445.3.579.2.593 1955 Unknown [id number] 2.16.84 0.1.281278.3.579.2.593 1955 Unknown [id number] 2.16.84 0.1.080059.3.579.2.593 Medicare Medicare [id number] Unknown [id number] 2.16.8 [id number] Social History Date Type Detail Facility Tobacco smoking status ILIS Unknown if ever smoked [facility] Work Phone: Start: 1955 Sex Assigned At Female F [facility] Sex Assigned At Sex Assigned At Bir [facility] [place] [facility] Other Clinical Notes 07-13-2022 to 11-01-2023 Note Date & Type Note Facility 11-01-2023 Evaluation note Encounter Date Diagnosis Assessment Notes Oct, Primary hypertension (ICD-10 - I10) This patient is instructed to consume a healthy, low-fat, low-salt diet. They are also encouraged to continue exercise to achieve/maintai n a normal BMI. Oct, Lumbar spondylosis (ICD-10 - M47.816) Oct, Morbid (severe) obesity due to excess calories (ICD-10 - E66.01) This patient has been instructed on a low-fat, high-fiber diet. They are instructed to reduce calories, portion sizes and snacks. It is recommended that they exercise for 30 minutes, 3-5 times weekly. Oct, Body mass index [BMI] 40.0-44.9, adult (ICD-10 - Z68.41) Oct, Medicare annual wellness visit, subsequent (ICD-10 - Z00.00) Personalized health advice was given to the beneficiary including a written plan for screenings discussed and provided. Advanced care planning reviewed and/or information given as requested. Additional counseling was provided here today in regards to, [ ]. The above visit was performed by [ ], under direct supervision of [ ]. Document reviewed and amended by provider signed below. Oct, Screening mammogram for breast cancer (ICD-10 - Z12.31) Instructed patient on monthly SBE and yearly mammograms. [facility] Other 12-18-2023 Evaluation note* Encounter Date Diagnosis Assessment Notes Treatment Notes Treatment Clinical Notes Sep, Lumbar spondylosis (ICD-10 - M47.816) [facility] Other 11-20-2023 Evaluation note* Encounter Date Diagnosis Assessment Notes Treatment Notes Treatment Clinical Notes Aug, Morbid (severe) obesity due to excess calories (ICD-10 - E66.01) [facility] Other 10-12-2023 Evaluation note* Encounter Date Diagnosis Assessment Notes Treatment Notes Treatment Clinical Notes Jul, Morbid (severe) obesity due to excess calories (ICD-10 - E66.01) [facility] Other 09-22-2023 Evaluation note* Encounter Date Diagnosis Assessment Notes Treatment Notes Treatment Clinical Notes Jun, Primary hypertension (ICD-10 - I10) This patient is instructed to consume a healthy, low-fat, low-salt diet. They are also encouraged to continue exercise to achieve/maintain a normal BMI. Jun, Morbid (severe) obesity due to excess calories (ICD-10 - E66.01) This patient has been instructed on a low-fat, high-fiber diet. They are instructed to reduce calories, portion sizes and snacks. It is recommended that they exercise for 30 minutes, 3-5 times weekly. Jun, Body mass index [BMI] 40.0-44.9, adult (ICD-10 - Z68.41) BMI goal is < 30. Continue calorie/portion restriction, exercise and Adipex [facility] Other 09-19-2023 Evaluation note* Encounter Date Diagnosis Assessment Notes Treatment Notes Treatment Clinical Notes Jun, Lumbar spondylosis (ICD-10 - M47.816) [facility] Other 08-29-2023 Evaluation note* Encounter Date Diagnosis Assessment Notes Treatment Notes Treatment Clinical Notes May, Morbid (severe) obesity due to excess calories (ICD-10 - E66.01) [facility] Other 08-28-2023 Evaluation note* Encounter Date Diagnosis Assessment Notes Treatment Notes Treatment Clinical Notes May, Morbid (severe) obesity due to excess calories (ICD-10 - E66.01) [facility] Other 06-21-2023 Evaluation note* Encounter Date Diagnosis Assessment Notes Treatment Notes Treatment Clinical Notes Mar, Lumbar spondylosis (ICD-10 - M47.816) The patient is instructed to avoid bending, twisting or lifting. They are to use intermittent heat and ice as needed. They may schedule a massage or gentle manipulation. They may safely use Tylenol as needed. Mar, Primary hypertension (ICD-10 - I10) This patient is instructed to consume a healthy, low-fat, low-salt diet. They are also encouraged to continue exercise to achieve/maintain a normal BMI. Mar, Morbid (severe) obesity due to excess calories (ICD-10 - E66.01) This patient has been instructed on a low-fat, high-fiber diet. They are instructed to reduce calories, portion sizes and snacks. It is recommended that they exercise for 30 minutes, 3-5 times weekly. Mar, Body mass index [BMI] 40.0-44.9, adult (ICD-10 - Z68.41) [facility] Other 04-27-2023 NotePROCEDURE: XR FOOT RT MIN 3 VIEWS HISTORY: Pain ; follow-up first toe fracture COMPARISON: XR foot right 01/06/2023 FINDINGS: BONES:Large fracture fragment involving the distal lateral corner of the first proximal phalanx with mild displacement. No significant callus formation. Minimal increased opacity of the fracture lines. SOFT TISSUES:Soft tissue swelling of first toe. EFFUSION:None visible. OTHER: Negative. IMPRESSION: 1. Stable alignment and likely changes of early bone healing involving the first proximal phalanx fracture. Electronically authenticated by: MAURILIO MENDEZ Date: 2023-02-17 07:42[facility]03-21-2023 Evaluation note* Encounter Date Diagnosis Assessment Notes Treatment Notes Treatment Clinical Notes Dec, Primary hypertension (ICD-10 - I10) This patient is instructed to consume a healthy, low-fat, low-salt diet. They are also encouraged to continue exercise to achieve/maintain a normal BMI. Dec, Gastroesophageal reflux disease with esophagitis without hemorrhage (ICD-10 - K21.00) Diet instructions: Smaller portions, avoid eating and laying flat, avoid eating or drinking prior to bedtime. Weight loss. Dec, Lumbar spondylosis (ICD-10 - M47.816) The patient is instructed to avoid bending, twisting or lifting. They are to use intermittent heat and ice as needed. They may schedule a massage or gentle manipulation. They may safely use Tylenol as needed. Dec, Morbid exogenous obesity (ICD-10 - E66.01) This patient has been instructed on a low-fat, high-fiber diet. They are instructed to reduce calories, portion sizes and snacks. It is recommended that they exercise for 30 minutes, 3-5 times weekly. Dec, Meralgia paresthetic a of right side (ICD-10 - G57.11) Avoid tight clothing. Decrease weight Reassure [facility] Other 03-17-2023 NotePROCEDURE: XR FOOT RT MIN 3 VIEWS COMPARISON: 11/26/2022 HISTORY: Pain in right foot FINDINGS: BONES:Complex intra-articular fracture head of the first proximal phalanx. No significant bone formation or bony bridging No new fracture. No dislocation. SOFT TISSUES:Negative. No visible soft tissue swelling. EFFUSION:None visible. OTHER: Negative. IMPRESSION: Complex intra-articular fracture head of the first proximal phalanx Electronically authenticated by: JOANN BECKFORD Date: 2023-01-07 14:50[facility]02-19-2023 Evaluation note* Encounter Date Diagnosis Assessment Notes Treatment Notes Treatment Clinical Notes Nov, Lumbar spondylosis (ICD-10 - M47.816) [facility] Other 02-03-2023 NotePROCEDURE: XR FOOT RT MIN 3 VIEWS COMPARISON: 10/06/2022 HISTORY: Pain in right foot FINDINGS: BONES:Complex intra-articular fracture involving the head and neck of the first proximal phalanx. Increase in lucency as well as increased angulation/distraction of the lateral head. No dislocation. SOFT TISSUES:Negative. No visible soft tissue swelling. EFFUSION:None visible. OTHER: Negative. IMPRESSION: Complex intra-articular fracture head of the first distal phalanx Electronically authenticated by: JOANN BECKFORD Date: 2022-11-26 12:56[facility]10-27-2022 Evaluation note* Encounter Date Diagnosis Assessment Notes Treatment Notes Treatment Clinical Notes Jul, Other spondylosis with radiculopathy, lumbar region (ICD-10 - M47.26) I again reevaluated the MRI of the lumbar spine in this patient that shows a synovial cyst at L4-5. Clinically the patient has absolutely no numbness no pain down the leg. She received an injection and has done very well. She may go for another injection. I spent the visit talking with her and her daughter about indications which will be significant radicular pain and what the surgery would be in this case if the symptoms do occur. Would probably be a simple decompression. All understand agree no surgery is indicated at this time I will gladly see her should her symptoms change. Jul, Synovial cyst of lumbar facet joint (ICD-10 - M71.38) Jul, Lumbar radiculopathy, right (ICD-10 - M54.16) [facility] Other 10-13-2022 Evaluation note* Encounter Date Diagnosis Assessment Notes Treatment Notes Treatment Clinical Notes Jul, Other spondylosis with radiculopathy, lumbar region (ICD-10 - M47.26) Patient denies any complaints of pain at this time. She attributes this to a recent right lumbar transforaminal epidural steroid injection. We will continue to monitor and proceed with future treatment to the area as needed. Anatomy of spine discussed in detail with patient in regards to patients condition. Overall, patient believes their pain is reasonably well controlled and she is in agreement with our treatment plan. Jul, Synovial cyst of lumbar facet joint (ICD-10 - M71.38) Jul, Chronic pain (ICD-10 - G89.29) Jul, Other Above note writ ten by Akshat Yoon MA, Service Order Taker. Edited and approved by Dr. Gerson Ochoa MD. [facility] Other 09-20-2022 Evaluation note* Encounter Date Diagnosis Assessment Notes Treatment Notes Treatment Clinical Notes Jun, Other spondylosis with radiculopathy, lumbar region (ICD-10 - M47.26) Patients primary complaint today is progressive low back pain radiating into the posterior aspect of her right lower extremity. Recent MRI results show evidence of a synovial cyst at L4-5, likely contributing to her pain symptoms. Based on these results, as well as location of pain and exam findings, patient is a candidate for a right lumbar transforaminal epidural steroid injection which we will proceed with. Risks and benefits of procedure explained to patient; patient verbalizes understanding. Anatomy of spine discussed in detail with patient in regards to patients condition. Jun, Synovial cyst of lumbar facet joint (ICD-10 - M71.38) Jun, Chronic pain (ICD-10 - G89.29) Jun, Other Above note writ ten by Akshat Yoon MA, Service Order Taker. Edited and approved by Dr. Gerson Ochoa MD. Medical decision making shows a new problem to me with further workup planned or suggested with the potential for extensive treatment options that were considered with the most applicable given this patient's situation as noted above. Treatment options considered include a combination of physical therapy approaches, pharmacologic management, and interventional procedures. Those most applicable to the patient were discussed at this time. Risk of complications and/or morbidity and mortality is high given that acute and chronic pain poses a threat to life and bodily function if undertreated, poorly treated or with failure to maintain adequate treatment and timely followup. Given the serious and fluctuating nature of pain with extensive consideration for whenever pain changes, there always remains the possibility of prolonged functional impairment requiring constant patient reassessment and high-level medical decision making. The amount and complexity of data reviewed is high given that patient labs, radiology reports, and other test were obtained, reviewed and summarized as applicable from the physician portal and/or outside medical records. Pertinent positive and negative findings were considered in medical decision-making. [facility] Other Evaluation noteNo assessment information available [facility] Work Phone: Evaluation noteNo InformationNortNorristown State Hospital [employer] Other History general Narrative - Reported* Type Description Date Medical History Arthritis Medical History gall bladder disease Medical History hypertension Medical History obesity Medical History chronic depression Medical History anxiety Surgical History gastric bypass Surgical History gallbladder Hospitalization History see surgical hx [facility] Other Hisgvck general Narrative - Reported* Type Description Date Medical History Arthritis Medical History gall bladder disease Medical History hypertension Medical History obesity Medical History chronic depression Medical History anxiety Medical History Osteopenia of multiple sites Medical History Vitamin D deficiency Medical History Bariatric surgery status Medical History Hypercholesterolemia Medical History High risk medication use Medical History 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 Medical History Lumbar spondylosis Medical History Sjogren''s syndrome with keratoc onjunctivitis sicca Medical History Gastroesophageal ref lux disease with esophagitis without hemorrhage Medical History Iron deficiency Medical History ARTHRITIS OF BOTH SHOULDERS Surgical History gastric bypass 2021 Surgical History gallbladder Surgical History LASER SURGERY 2021 Surgical History BARIATRIC SURGERY 2004 Hospitalization History see surgical hx [facility] Other Summary Purpose Family History No Family History Records FoundNo Family History Records FoundNo Family History Records Found Advance Directives Advance Directive Response Recorded Date/ Time Advance Directives No June 22, 2022 4:05pm Chief Complaint and Reason for Visit Chief Complaint G95.9 Additional Source Comments INFORMATION SOURCE (unrecogn ized section and content) DATE CREATED AUTHOR 11/01/2018 [facility] DATE CREATED AUTHOR AUTHOR'S ORGANIZ ATION 07/23/2022 [facility] DATE CREATED AUTHOR AUTHOR'S ORGANIZ ATION 02/19/2023 [facility] Care Teams (unrecognized sec tion and content) Team Status: Inactive Member Role Status Dates Lloyd Walsh MD Attending Provider Active Tirso Barney DO Primary Care Provider Active Team Status: Active Member Role Status Dates Tirso Barney DO Primary Care Provider Active Goals (unrecognized section and content) Goals may be documented in a n alternate sectionNo InformationNo InformationNo InformationNo InformationNo InformationNo InformationNo InformationNo InformationNo InformationNo InformationNo InformationNo InformationNo InformationNo InformationNo InformationNo InformationNo InformationNo Information REASON FOR VISIT (unrecogniz ed section and content) REF BY DR WALSH FOR LUMBAR R ADICULOPATHYPain Medicine Office NotesRIGHT LUMBAR TRANSFORAMINAL EPIDURAL STEROID INJECTION L4 L5/VWF/U RIGHT LUMBAR TRANSFORAMINAL EPIDURAL STEROID INJECTIONMRI and Xray results and Pain Management f/upNo Information3 month Follow up1 month Follow uprefillNo InformationNo Information3 month Follow uprefillRefillNo InformationNo InformationMWEMWE FOR RECORDS PERTAINING TO PATIENTS WHO ARE OR HAVE BEEN ENROLLED IN A CHEMICAL DEPENDENCY/SUBSTANCEABUSE PROGRAM, SOME INFORMATION MAY BE OMITTED. This clinical summary was aggregated from multiple sources. Caution should be exercised in using it in the provision of clinical care. This summary normalizes information from multiple sources, and as a consequence, information in this document may materially change the coding, format and clinical context of patient data. In addition, data may be omitted in some cases. CLINICAL DECISIONS SHOULD BE BASED ON THE PRIMARY CLINICAL RECORDS. [employer] [facility]. provides no warranty or guarantee of the accuracy or completeness of information in this document.
== END 2024-01-12 12:09 | disposition home or self-care (01) ==
LOC: MRI 12:10
PROVIDERS: PCP Internal Medicine; Visit Provider Internal Medicine
DX: M25.511 Pain in right shoulder (principal); M75.121 Complete rotator cuff tear or rupture of right shoulder, not specified as traumatic
CPT/HCPCS: 73221

== ENCOUNTER 2024-09-04 14:04 | Outpatient (OUT) | payer MEDICARE, OTHER, SELFPAY ==
[2024-09-04 14:52] LABS: Glucose 100 mg/dL (74-106)
== END 2024-09-04 14:05 | disposition home or self-care (01) ==
LOC: LAB 14:08
PROVIDERS: PCP Internal Medicine; Visit Provider Internal Medicine
DX: R63.1 Polydipsia (principal)
CPT/HCPCS: 36415; 82947

== ENCOUNTER 2024-10-04 13:35 | Outpatient (OUT) | payer MEDICARE, OTHER, SELFPAY ==
--- NOTE | 2024-10-04 14:15 | MM_ITS ---
Patient Name: CHELI BARAAKT MR#: [id number] : 1955 Exam Date: 10/04/2024 Ordering Doctor: DR Tirso Barney D.O. RADIOLOGY REPORT PROCEDURE: MM TOMOSYNTHESIS SCREENING BI COMPARISON: MG MAMM SCREEN 3D IRMA CAD, 07/31/2021. MG MAMM SCREEN 3D IRMA CAD, 10/21/2022. INDICATIONS: Screening Calculator Name NCI Breast Cancer Risk Assessment Tool 5 Year Breast Cancer Risk 1.70% Lifetime Breast Cancer Risk 5.50% Personal Breast Cancer No Personal Ovarian Cancer No Treatments None Family Cancers Father with bladder cancer at age ~58. LOCATION: [facility] BREAST COMPOSITION: There are scattered areas of fibroglandular density. FINDINGS: DIAGNOSTIC CATEGORY 1--NEGATIVE. NO CHANGE FROM COMPARISON ASSESSMENT. Scattered benign-appearing nodules are present. Scattered benign-appearing lymph nodes are present. RIGHT BREAST: No significant suspicious finding. LEFT BREAST: No significant suspicious finding. RECOMMENDATIONS: ROUTINE MAMMOGRAM AND CLINICAL EVALUATION IN 12 MONTHS. PLEASE NOTE: A NORMAL MAMMOGRAM DOES NOT EXCLUDE THE POSSIBILITY OF BREAST CANCER. A CLINICALLY SUSPICIOUS PALPABLE LUMP SHOULD BE BIOPSIED. Dictated by: Esteban Castrejon MD on 10/04/2024 at 14:52 Approved by: Esteban Castrejon MD on 10/04/2024 at 14:57
== END 2024-10-04 13:36 | disposition home or self-care (01) ==
LOC: MAMMO 13:35
PROVIDERS: PCP Internal Medicine; Visit Provider Internal Medicine
DX: Z12.31 Encounter for screening mammogram for malignant neoplasm of breast (principal); Z80.52 Family history of malignant neoplasm of bladder
CPT/HCPCS: 77063; 77067

== ENCOUNTER 2024-11-05 09:56 | Outpatient (OUT) | payer MEDICARE, OTHER, SELFPAY ==
--- OUTSIDE RECORDS SUMMARY | 2024-11-05 10:06 | XMS_ITS | CCD ---
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 Name Role Phone MD Lloyd Walsh Attending Provider DO Tirso Barney Primary Care Provider [phone] Gerson Ochoa Unavailable Lloyd Walsh Unavailable Tirso Barney Unavailable AMBER DOYLE Attending Unavailable AMBER DOYLE Admitting Unavailable ANALY, DR JOANN Mohr Consulting Unavailable BALL, DR CHAHAL Primary Care Unavailable AMBER DOYLE Consulting Unavailable ECTOR, DR CHAHAL Primary Care Unavailable ECTOR, DR CHAHAL Attending Unavailable BALL, DR CHAHAL Admitting Unavailable HAY ., DR CAMPOS Attending Unavailable HAY ., DR CAMPOS Admitting Unavailable BALL, DR CHAHAL Primary Care Unavailable GRECHNY ., ROYCE PALMA Consulting Unavailjodi e SHAVONNE ., DR CAMPOS Consulting Unavailable JULIO, GURPREET Consulting Unavailable ANDREA, SUNNY Armando Attending Unavailable HIGHLSHAY, SUNNY Armando Admitting Unavailable ZIEBVIMAL, DR MAURILIO Masterson Consulting Unavailable BALL, DR CHAHAL Primary Care Unavailable HIGHLSHAY, SUNNY Armando Consulting Unavailable BALL, DR CHAHAL Primary Care Unavailable BALL, DR CHAHAL Consulting Unavailable ECTOR, DR CHAHAL Attending Unavailable BALL, DR CHAHAL Admitting Unavailable ZIEBVIMAL, DR MAURILIO Masterson Consulting Unavailable ECTOR, DR CHAHAL Primary Care Unavailable BALL, DR CHAHAL Consulting Unavailable BALL, DR CHAHAL Attending Unavailable BALL, DR CHAHAL Admitting Unavailable ANALY, DR JOANN Mohr Consulting Unavailable ECTOR, DR CHAHAL Consulting Unavailable BALL, DR CHAHAL Primary Care Unavailable BALL, DR CHAHAL Attending Unavailable BALL, DR CHAHAL Admitting Unavailable WEST, DR JOANN Mohr Consulting Unavailable BALL, DR CHAHAL Attending Unavailable BALL, DR CHAHAL Admitting Unavailable BALL, DR CHAHAL Primary Care Unavailable WEST, DR JOANN Mohr Consulting Unavailable HIGHLSHAY, SUNNY Armando Attending Unavailable HIGHLSHAY, SUNNY Armando Admitting Unavailable BALL, DR CHAHAL Primary Care Unavailable ANDREA, SUNNY Armando Consulting Unavailable ECTOR, DR CHAHAL Consulting Unavailable BALL, DR CHAHAL Admitting Unavailable BALL, DR CHAHAL Attending Unavailable BALL, DR CHAHAL Primary Care Unavailable Ball, DO Chahal Primary Care Provider DO Andres Estrella Attending Provider DO Tirso Barney Primary Care Provider DO Andres Estrella Attending Provider Ector DOTirso Primary Care Provider [phone] Andres Estrella DO Attending Provider Miguel Estrellain Maria Luisa Admitting Unavailable Ball, Tirso Primary Care Unavailable Delores, Andres A Attending Unavailable Ball, Tirso Primary Care Unavailable Delores, Andres A Attending Unavailable Delores, Andres A Admitting Unavailable Ball, Tirso Primary Care Unavailable Delores, Andres A Attending Unavailable Delores, Andres A Admitting Unavailable Ball, Tirso Primary Care Unavailable Delores, Andres A Admitting Unavailable Delores, Andres A Attending Unavailable Ball, Tirso Primary Care Unavailable Delores, Andres A Admitting Unavailable Delores, Andres A Attending Unavailable Delores, Andres A Admitting Unavailable Ball, Tirso Primary Care Unavailable Delores, Andres A Attending Unavailable Delores, Andres A Admitting Unavailable Ball, Tirso Primary Care Unavailable Delores, Andres A Attending Unavailable Delores, Andres A Admitting Unavailable Ball, Tirso Primary Care Unavailable Delores, Andres A Attending Unavailable Delores, Andres A Admitting Unavailable Ball, Tirso Primary Care Unavailable Delores, Andres A Attending Unavailable Delores, Andres A Admitting Unavailable Ball, Tirso Primary Care Unavailable Delores, Andres A Attending Unavailable Allergies Allergy Classification Reported Allergen(s) Allergy Type Date of Onset Reaction(s) Facility (3 sources) Esomeprazole Drug Allergy 3 Unknown [facility] Other (10 sources) Lisinopril Drug Allergy Unknown [facility] Other (10 sources) NexIUM *ULCER DRUGS/ANTISPASMO DICS/ANTICHOLINE RGIC Propensity to adverse reactions Unknown [facility] Other (3 sources) Allergies Reconciled Propensity to adverse reactions Unknown [facility] Other (3 sources) patient allergy list reviewed by nurse or physicia Propensity to adverse reactions 6 Comment:Done [facility] Other Medications Current Medications Medication Drug Class(es) Dates Sig (Normalized) Sig (Original) busPIRone hydrochloride 15 mg oral tablet (7 sources) Start: 05-08-2024 take 1 tablet by mouth twice daily Buspirone 15 mg tablet Active 15 MG PO Twice daily May 07, 2024 11:00pm cholecalciferol 1.25 mg oral capsule (20 sources) Vitamin D Start: 02-10-2024 take 1 capsule by mouth every week Cholecalciferol (Vitamin D3) 1,250 mcg (50,000 unit) capsule Active 0 .ROUTE .COMPLEX February 10, 2024 12:37pm TAKE 1 CAPSULE BY MOUTH ONE TIME PER WEEK Start: 02-10-2024 take 1 capsule by [facility] every week Cholecalciferol (Vitamin D3) Active 0 .ROUTE .COMPLEX February 10, 2024 12:37pm TAKE 1 CAPSULE BY MOUTH ONE TIME PER WEEK Start: 02-10-2024 End: 02-10-2024 take 1 capsule by mouth every week Cholecalciferol (Vitamin D3) 1,250 mcg (50,000 unit) capsule Discontinued 1250 MCG PO every week February 09, 2024 11:00pm February 10, 2024 12:37pm Start: 01-02-2024 End: 10-30-2024 take 1 capsule by mouth once daily Cholecalciferol (Vitamin D3) 125 mcg (5,000 unit) capsule Discontinued 125 MCG PO Daily January 01, 2024 11:00pm October 30, 2024 1:32pm take 1 capsule by [facility] every week Vitamin D3 1.25 MG (44913 UT) TAKE 1 CAPSULE BY MOUTH ONE TIME PER WEEK for 90 Active clonazePAM 0.5 mg oral tablet (20 sources) Benzodiazepine Start: 05-08-2024 take 1 tablet by mouth once daily at bedtime Clonazepam 0.5 mg tablet Active 0.5 MG PO Daily at bedtime May 07, 2024 11:00pm Start: 01-02-2024 [facility] times daily Clonazepam 1 mg tablet Active 1 MG PO Three times daily January 01, 2024 11:00pm Start: 01-02-2024 take 1 mg by mouth once daily Clonazepam Active 1 MG PO Daily January 02, 2024 12:00am clonazePAM 1 MG Oral for 30 Days Not-Taking/PRN hydroCHLOROthiazide 12.5 mg / lisinopril 10 mg oral tablet (20 sources) Thiazide Diuretic, Angiotensin Converting Enzyme Inhibitor Start: 03-15-2024 take 1 tablet by mouth once daily Lisinopril-Hydrochlorothiazide 10-12.5 mg tablet Active 0 .ROUTE .COMPLEX 90 March 15, 2024 4:43pm TAKE 1 TABLET BY MOUTH EVERY DAY Start: 01-02-2024 End: 03-15-2024 take 1 tablet by mouth once daily Lisinopril-Hydrochlorothiazide 10-12.5 m g tablet Discontinued 1 TAB PO Daily January 01, 2024 11:00pm March 15, 2024 4:44pm take 1 tablet by nidia th once daily Lisinopril-hydroCHLOROthiazide 10-12.5 M G TAKE 1 TABLET BY MOUTH EVERY DAY Active Lisinopril-hydro CHLOROthiazide 10-12.5 MG Oral Active lamoTRIgine 100 mg oral tablet (20 sources) Mood Stabilizer, Anti-epileptic Agent Start: 02-23-2024 take 2 tablets by mouth once daily in the morning Lamotrigine 100 mg tablet Active 100 MG PO Every morning February 22, 2024 11:00pm 200 mg @ HS Start: 02-23-2024 take 200 mg by mouth once daily in the morning Lamotrigine Active 100 MG PO Every morning February 22, 2024 11:00pm 200 mg @ HS Start: 02-23-2024 Lamotrigine Ac tive MG PO February 23, 2024 12:00am take 1 tablet by nidia [facility] every twenty-four hours LaMICtal 100 MG 1 tablet Orally Once a day Not-Taking/PRN phentermine hydrochloride 37.5 mg oral tablet (10 [...] a day for 30 days Dec, Active venlafaxine 75 mg oral tablet (20 sources) Serotonin and Norepinephrine Reuptake Inhibitor Start: 01-02-2024 take 1 tablet by mouth three times daily Venlafaxine 75 mg tablet Active 75 MG PO Three times daily January 01, 2024 11:00pm [facility] twenty-four hours Venlafaxine HCl 75 MG 1 tablet with food Orally Once a day Not-Taking/PRN Vitamin D3 (12 sources) Vitamin D3 Activ e ziprasidone 20 mg oral capsule (20 sources) Atypical Antipsychotic Start: take 1 capsule by mouth once daily at bedtime Ziprasidone Hcl 40 mg capsule Active 40 MG PO Daily at bedtime May 07, 2024 11:00pm Start: 05-08-2024 take 1 capsule by [facility] once daily in the morning Ziprasidone Hcl 20 mg capsule Active 20 MG PO Every morning May 07, 2024 11:00pm take 1 capsule by [facility] every twelve hours Geodon 20 MG 1 capsule with food Orally Twice a day Not-Taking/PRN zolpidem tartrate 12.5 mg extended release oral tablet (20 sources) gamma-Aminobutyric Acid-ergic Agonist Start: 05-08-2024 take 1 tablet by mouth once daily at bedtime Zolpidem 12.5 mg tablet,ext release multiphase Active 12.5 MG PO Daily at bedtime May 07, 2024 11:00pm take 1 tablet by [facility] every twenty-four hours Ambien CR 12.5 MG 1 tablet at bedtime as needed Orally Once a day Not-Taking/PRN Completed/Discontinued Medications Medication Drug Class(es) Dates Sig (Normalized) Sig (Original) acetaminophen 500 mg oral tablet (6 sources) Start: 05-22-2024 End: 06-19-2024 take 1 tablet by mouth every six hours as needed for pain Acetaminophen 500 mg tablet Discontinued 500 MG PO Q6H as needed for Pain May 21, 2024 11:00pm June 19, 2024 11:33am DO NOT RECONCILE UNTIL DOS 05/23/24 TO BE USED POST OP acetaminophen 325 mg / HYDROcodone bitartrate 5 mg oral tablet (20 sources) Opioid Agonist Start: 03-27-2024 End: 04-17-2024 take 1 tablet by mouth twice daily as needed for pain Hydrocodone-Acetami nophen 5-325 mg tablet Discontinued 1 TAB PO Twice daily as needed for pain 14 March 27, 2024 April 17, 2024 3:43pm Start: 12-12-2023 End: 01-23-2024 take 1 tablet by mouth three times daily as needed for pain Hydrocodone-Acetaminophen 5-325 mg table t Discontinued 1 TAB PO Three times daily as needed for pain 20 05December 12, 2023 January 13, 2024 3:28pm Start: 11-30-2023 take 1 tablet by nidia th three times daily as needed for pain HYDROcodone-Acetaminophen 5-325 MG 1 tab let Orally tid as needed for pain for 7 days Nov, Active amoxicillin 500 mg oral tablet (1 source) Penicillin-class Antibacterial Start: 09-25-2024 End: 10-30-2024 take 4 tablets by mouth once Amoxicillin 500 mg tablet Discontinued 2000 MG PO once 4 September 25, 2024 12:00am October 30, 2024 1:32pm aspirin 81 mg chewable tablet (6 sources) Platelet Aggregation Inhibitor, Nonsteroidal Anti-inflammatory Drug Start: 05-22-2024 End: 10-01-2024 take 1 tablet by mouth twice daily Aspirin 81 mg tablet,chewable Discontinued 81 MG PO Twice daily 60 May 21, 2024 11:00pm October 01, 2024 1:48pm DO NOT RECONCILE UNTIL DOS 05/23/24 TO BE USED POST OP cyclobenzaprine hydrochloride 10 mg oral tablet (4 sources) Muscle Relaxant Start: 08-06-2024 End: 10-01-2024 take 5-10 mg by mouth every eight hours Cyclobenzaprine 10 mg tablet Discontinued 5 - 10 MG PO Q8H 30 August 05, 2024 11:00pm October 01, 2024 1:49pm diazePAM 10 mg oral tablet (18 sources) Benzodiazepine Start: 06-22-2022 diazePAM 10 MG Take 1 tablet 30 mins prior to MRI and 1 tablet at the time of MRI if needed Orally BID for 1 days May, Not-Taking/PRN docusate sodium 100 mg oral capsule (6 sources) Start: 05-22-2024 End: 10-01-2024 take 1 capsule by mouth twice daily as needed for constipation Docusate Sodium (Colace) 100 mg capsule Discontinued 100 MG PO Twice daily as needed for Constipation 12 08May 21, 2024 11:00pm October 01, 2024 1:46pm DO NOT RECONCILE UNTIL DOS 05/23/24 TO BE USED POST OP meloxicam 15 mg oral tablet (6 sources) Nonsteroidal Anti-inflammatory Drug Start: 05-22-2024 End: 06-19-2024 take 1 tablet by mouth once daily Meloxicam 15 mg tablet Discontinued 15 MG PO daily May 21, 2024 11:00pm June 19, 2024 11:33am DO NOT RECONCILE UNTIL DOS 05/23/24 TO BE USED POST OP methocarbamol 750 mg oral tablet (13 sources) Muscle Relaxant Start: 06-19-2024 End: 10-01-2024 take 1 tablet by mouth twice daily as needed for muscle spasms Methocarbamol 750 mg tablet Discontinued 750 MG PO Twice daily as needed for muscle spasm 07 05June 26, 2024 9:14am October 01, 2024 1:50pm Start: 06-12-2024 End: 06-19-2024 take 1 tablet by mouth four times daily as needed for muscle spasms Methocarbamol 750 mg tablet Discontinued 750 MG PO Four times daily as needed for muscle spasm 20 05June 11, 2024 11:00pm June 19, 2024 11:59am oxyCODONE hydrochloride 5 mg oral tablet (20 sources) Opioid Agonist Start: 06-12-2024 End: 06-29-2024 take 1 tablet by mouth every twelve hours as needed for pain Oxycodone 5 mg tablet Discontinued 5 MG PO Every 12 hours as needed for Pain 20 June 12, 2024 June 29, 2024 3:26pm Start: 05-28-2024 End: 06-12-2024 take 1 tablet by mouth every eight hours as needed for pain Oxycodone 5 mg tablet Discontinued 5 MG PO Every 8 hours as needed for Pain 15 7 June 05, 2024 June 12, 2024 10:56am Start: 05-22-2024 End: 05-28-2024 take 1 tablet by mouth every six hours as needed for pain Oxycodone 5 mg tablet Discontinued 5 MG PO Q6H as needed for Pain 28 May 22, 2024 May 28, 2024 1:48pm DO NOT RECONCILE UNTIL DOS 05/23/24 TO BE USED POST OP polyethylene glycol 3350 76657 mg powder for oral solution (6 sources) Osmotic Laxative Start: 05-22-2024 End: 06-19-2024 Polyethylene Glycol 3350 (Miralax) 17 gram powder in packet Discontinued 17 GM PO daily 14 May 21, 2024 11:00pm June 19, 2024 11:34am 1 packet mixed with 8 ounces of fluid. DO NOT RECONCILE UNTIL DOS 05/23/24 TO BE USED POST OP polysaccharide iron complex 150 mg oral capsule (20 sources) Start: 01-02-2024 End: 10-01-2024 take 1 capsule by mouth once daily Polysaccharide Iron Complex 150 mg iron capsule Discontinued 150 MG PO Daily January 01, 2024 11:00pm October 01, 2024 1:50pm take 1 capsule by [facility] every twenty-four hours Ferrex 150 150 MG 1 capsule Orally Once a day Active take 1 capsule by [facility] every other day as needed Polysaccharide Iron Complex 150 MG TAKE 1 CAPSULE BY MOUTH EVERY OTHER DAY for 90 Not-Taking/PRN traMADol hydrochloride 50 mg oral tablet (20 sources) Opioid Agonist Start: 09-11-2024 End: 10-18-2024 take 1 tablet by mouth four times daily as needed for pain Tramadol 50 mg tablet Discontinued 50 MG PO Four times daily as needed for pain 120 October 18, 2024 5:20pm October 18, 2024 5:21pm start 08/28 Start: 06-29-2024 End: 09-11-2024 take 1 tablet by mouth three times daily as needed for pain Tramadol 50 mg tablet Discontinued 50 MG PO Three times daily as needed for pain 90 June 29, 2024 3:26pm July 27, 2024 9:48am Start: 01-02-2024 End: 06-19-2024 take 1 tablet by mouth every six hours as needed for pain Tramadol 50 mg tablet Discontinued 50 MG PO Every 6 hours as needed for pain 120 May 21, 2024 8:53am June 19, 2024 11:34am Start: 10-10-2023 take 1 tablet by nidia th every [...] 50 MG Oral for 30 Days Active traZODone hydrochloride 100 mg oral tablet (19 sources) Serotonin Reuptake Inhibitor Start: 05-21-2024 take 1 tablet by mouth once daily at bedtime as needed for sleep Trazodone 100 mg tablet Active 100 MG PO Daily at bedtime as needed for sleep 60 May 20, 2024 11:00pm Start: 05-08-2024 End: 05-21-2024 take 2 tablets by mouth once daily at bedtime Trazodone 100 mg tablet Discontinued 200 MG PO Daily at bedtime 120 May 21, 2024 8:52am May 21, 2024 8:52am start 05/21 Start: 05-08-2024 End: 05-21-2024 take 200 mg by mouth once daily at bedtime Trazodone Discontinued 200 MG PO Daily at bedtime 120 May 21, 2024 8:52am May 21, 2024 8:52am start 05/21 Problems Active Problems Problem Classification Problem Date Documented Da te Episodic/Chronic Anxiety disorders (11 sources) Generalized anxiety disorder; Translations: [Generalized anxiety disorder] 01-02-2024 Chronic Disorders of lipid metabolism (20 sources) Hypercholesterolemia ; Translations: [Pure hypercholesterolemia , unspecified] Onset: 10-28-2022 01-02-2024 Chronic Esophageal disorders (20 sources) Gastro-esophageal reflux disease with esophagitis; Translations: [Gastroesophageal reflux disease with esophagitis without hemorrhage] 01-02-2024 Chronic Esophageal disorders (4 sources) Esophageal disorders; [...] disorder, recurrent, in partial remission] Onset: 10-24-1958 03-26-2024 Chronic Nutritional deficiencies (20 sources) Vitamin D deficiency; Translations: [Vitamin D deficiency, unspecified] 01-02-2024 Chronic Nutritional deficiencies (20 sources) Iron deficiency; Translations: [Iron deficiency] 01-02-2024 Episodic Osteoarthritis (20 sources) Idiopathic osteoarthritis; Translations: [Unilateral primary osteoarthritis, right knee] Onset: 01-19-2019 01-02-2024 Chronic Osteoporosis (20 sources) Senile osteoporosis; Translations: [Age-related osteoporosis without current pathological fracture] 01-02-2024 Chronic Other aftercare (1 source) Aftercare following joint replacement surgery; Translations: [Aftercare following joint replacement surgery] Onset: 08-20-2024 Chronic Other aftercare (11 sources) H/O: high risk medication; Translations: [Other fdc (current) drug therapy] Episodic Other aftercare (2 sources) Other buttermaker helper (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) 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 therapy; Translations: [OTH ASSISTED CURRENT DRUG THERAPY] Onset: 10-28-2022 Episodic Other aftercare (3 sources) Long-term current use of drug therapy; Translations: [Other buttermaker helper (current) drug therapy] Episodic Other aftercare (8 sources) Drug therapy finding; Translations: [intermediate card tender (current) use of opiate analgesic] 03-26-2024 Episodic Other aftercare (8 sources) longterm (current) use of opiate analgesic; Translations: [Long-term (current) use of other medications] 03-27-2024 Episodic Other bone disease and musculoskeletal deformities (19 sources) Osteopenia; Translations: [Other specified disorders of bone density and structure, multiple sites] 01-02-2024 Episodic Other bone disease and musculoskeletal deformities [...] Onset: 02-28-2019 Chronic Other connective tissue disease (6 sources) History of reverse prosthetic total arthroplasty of right shoulder; Translations: [Presence of right artificial shoulder joint] Onset: 10-24-2023 05-22-2024 Chronic Other connective tissue disease (20 sources) Presence of right artificial shoulder joint; Translations: [Shoulder joint replacement] Onset: 10-24-2023 06-05-2024 Chronic Other connective tissue disease (20 sources) Synovial cyst of lumbar spine; Translations: [Other bursal cyst, other site] 01-02-2024 Episodic Other connective tissue disease (6 sources) Other bursal cyst, other site; Translations: [Bursal cyst] Episodic Other connective tissue disease (4 sources) Pain in right foot; Translations: [PAIN IN RIGHT FOOT] Onset: 02-16-2023 Episodic Other connective tissue disease (3 sources) Pain in limb; Translations: [Pain in soft tissues of limb] Episodic Other connective tissue disease (8 sources) Supraspinatus tear; Translations: [Unspecified rotator cuff tear or rupture of unspecified shoulder, not specified as traumatic] 01-28-2024 Episodic Other connective tissue disease (5 sources) Spasm; Translations: [Other muscle spasm] 06-12-2024 Episodic Other gastrointestinal disorders (3 sources) Intestinal malabsorption; Translations: [Intestinal malabsorption, unspecified] Chronic Other gastrointestinal disorders (12 sources) History of bariatric surgical procedure; Translations: [Bariatric surgery status] Episodic Other gastrointestinal disorders (3 sources) Diarrhea; Translations: [Diarrhea, unspecified] Episodic Other injuries and conditions due to external causes (3 sources) History of fall; Translations: [History of falling] Episodic Other injuries and conditions due to external causes (1 source) Unspecified injury of right shoulder and upper arm, initial encounter; Translations: [Unspecified injury of right shoulder and upper arm, initial encounter] Onset: 09-21-2024 Episodic Other lower respiratory disease (3 sources) Chronic cough; Translations: [Chronic cough] Episodic Other nervous system disorders (20 sources) Chronic pain; Translations: [Other chronic pain] 01-02-2024 Chronic Other nervous system disorders (20 sources) Cervical myelopathy; Translations: [Disease of spinal cord, unspecified] 01-02-2024 Chronic Other nervous system disorders (2 sources) Other chronic pain Chronic Other nervous system disorders (20 sources) Meralgia paresthetica; Translations: [Meralgia paresthetica, right lower limb] 01-02-2024 Chronic Other nervous system disorders (1 source) Meralgia paresthetica, right lower limb Chronic Other nervous system disorders (19 sources) Paresthesia; Translations: [Paresthesia of skin] 01-02-2024 Episodic Other nervous system disorders (1 source) Abnormal gait; Translations: [Unsteadiness on feet] 10-30-2024 Episodic Other non-traumatic joint disorders (3 sources) Shoulder joint pain; Translations: [Pain in left shoulder] Episodic Other non-traumatic joint disorders (1 source) Pain in right shoulder; Translations: [Pain in joint, shoulder region] 01-03-2024 Episodic Other nutritional; endocrine; and metabolic disorders [...] nutritional; endocrine; and metabolic disorders (11 sources) Obesity; Translations: [Obesity, unspecified] 03-27-2024 Chronic Other nutritional; endocrine; and metabolic disorders (6 sources) Obese class II; Translations: [Body mass index 39.0-39.9, adult] Onset: 02-16-2016 Chronic Other nutritional; endocrine; and metabolic disorders (8 sources) Obesity, unspecified; Translations: [Obesity, unspecified] 03-27-2024 Chronic Other screening for suspected conditions (not mental disorders or infectious disease) (8 sources) Encounter for screening mammogram for malignant neoplasm of breast; Translations: [Patient encounter status] Onset: 10-21-2022 Episodic Other upper respiratory infections (6 sources) Acute maxillary sinusitis; Translations: [Acute maxillary sinusitis, unspecified] Episodic Residual codes; unclassified (3 sources) Postmenopausal state; Translations: [Asymptomatic menopausal state] Episodic Spondylosis; intervertebral disc disorders; other back problems (20 sources) Lumbosacral spondylosis without myelopathy; Translations: [Other spondylosis with radiculopathy, lumbar region] Onset: 03-18-2022 Chronic Spondylosis; intervertebral disc disorders; other back problems (20 sources) Low back pain; Translations: [Low back pain, unspecified back pain laterality, unspecified chronicity, unspecified whether sciatica present] Onset: 04-21-2015 Resolved: 05-07-2022 Episodic Sprains and strains (20 sources) Strain of biceps brachii muscle and/or tendon; Translations: [Strain of muscle, fascia and tendon of other parts of biceps, left arm, initial encounter] Onset: 02-06-2018 02-23-2024 Episodic Superficial injury; contusion (7 sources) Contusion of right hand; Translations: [Contusion of right hand, initial encounter] Onset: 01-20-2018 01-03-2024 Episodic Systemic lupus erythematosus and connective tissue disorders (20 sources) Sjogren's syndrome; Translations: [Sicca syndrome with keratoconjunctivitis ] 01-02-2024 Chronic Unclassified (4 sources) LOW BACK PAIN, [...] Insomnia; Translations: [Insomnia, unspecified] Onset: 09-11-2014 Episodic Unclassified (1 source) LOW BACK PAIN, UNSPECIFIED; Translations: [LOW BACK PAIN, UNSPECIFIED] Onset: 03-16-2022 Unclassified (3 sources) Other specified cough; Translations: [Other specified cough] Resolved: 01-12-2022 Results Test Name Value Interpretation Reference Range Facility Basophils Auto (Bld) [#/Vol] Ordered By: Andres Estrella on 10-01-2024 Basophils (Bld) [#/Vol] Automated basoph il count 0.0-0.2 [facility] Basophils/100 WBC Auto (Bld) Ordered By: Andres Estrella on 10-01-2024 Basophils/100 WBC (Bld) Automated basophil % . [facility] C reactive protein [Mass/vol ume] in Serum or PlasmaOrdered By: Andres Estrella on 10-01-2024 CRP [Mass/Vol] C reactive protein [Mass/volume] in Serum or Plasma 0.0-0.5 [facility] C-Reactive Proteinon 024 CRP [Mass/Vol] mg/L Normal 0.0-0.5 [facility] Comment on above: Result Comment: PERF ORMED BY: [facility] [address] [place] [address] PATHOLOGIST MASH PROCESSING OPERATOR EILEEN MCCONNELL M.D. Performed By: #### C [facility] #### [address] Complete Blood Count Auto Di ffon 10-01-2024 Basophils (Bld) [#/Vol] 0.1 10*3/uL Normal 0.0-0.2 [facility] Comment on above: Performed By: #### C [facility] #### [address] Basophils/100 WBC (Bld) 1.3 % Normal . [facility] Comment on above: Performed By: #### C UMRSA #### [place] [address] [place] Eosinophils (Bld) [#/Vol] 0.2 10*3/uL Normal 0.0-0.45 [facility] Comment on above: Performed By: #### C UMRSA #### [address] Eosinophils/100 WBC (Bld) 3.3 % Normal . [facility] Comment on above: Performed By: #### C UMRSA #### [address] Erythrocyte distribution width (RBC) [Ratio] 13.9 % Normal 11.9-15.3 [facility] Comment on above: Performed By: #### C UMRSA #### [address] Hematocrit (Bld) [Volume fraction] 37.7 % Normal 34.0-46.4 [facility] Comment on above: Performed By: #### C UMRSA #### [place] [address] [place] Hemoglobin (Bld) [Mass/Vol] 13.0 g/dL Normal 11.8-15.4 [facility] Comment on above: Performed By: #### C UMRSA #### [place] [address] [place] Lymphocytes (Bld) [#/Vol] 1.9 10*3/uL Normal 1.00-4.8 [facility] Comment on above: Performed By: #### C UMRSA #### [place] [address] [place] Lymphocytes/100 WBC (Bld) 28.7 % Normal . [facility] Comment on above: Performed By: #### C UMRSA #### [address] MCH (RBC) [Entitic mass] 32.2 pg Normal 24.7-34.3 [facility] Comment on above: Performed By: #### C UMRSA #### [address] MCV (RBC) [Entitic vol] 93.7 fL Normal 80-100 [facility] Comment on above: Performed By: #### C UMRSA #### [address] Mean Corpuscular HGB Conc 34.3 g/dL Normal 32.0-35.0 [facility] Comment on above: Performed By: #### C UMRSA #### [address] Monocytes (Bld) [#/Vol] 0.5 10*3/uL Normal 0.0-0.8 [facility] Comment on above: Performed By: #### C UMRSA #### [address] Monocytes/100 WBC (Bld) 7.9 % Normal . [facility] Comment on above: Performed By: #### C UMRSA #### [address] Neutrophils (Bld) [#/Vol] 3.9 10*3/uL Normal 1.8-7.7 [facility] Comment on above: Performed By: #### C UMRSA #### [address] Neutrophils/100 WBC (Bld) 58.8 % Normal . [facility] Comment on above: Performed By: #### C UMRSA #### [address] NRBC% 0.0 /100{WBC} Normal 0-0.5 [facility] Comment on above: Performed By: #### C UMRSA #### [address] Platelet mean volume (Bld) [Entitic vol] 7.6 fL Normal 6.3-10.7 [facility] Comment on above: Performed By: #### C UMRSA #### [address] Platelets (Bld) [#/Vol] 308 10*3/uL Normal 150-450 [facility] Comment on above: Performed By: #### C UMRSA #### [address] RBC (Bld) [#/Vol] 4.03 10*6/uL Normal 3.60-5.00 [facility] Comment on above: Performed By: #### C UMRSA #### [address] WBC (Bld) [#/Vol] 6.7 10*3/uL Normal 3.8-11.6 [facility] Comment on above: Performed By: #### C UMRSA #### [place] [address] [place] Eosinophils Auto (Bld) [#/Vo l]Ordered By: Andres Estrella on 10-01-2024 Eosinophils (Bld) [#/Vol] Automated eosinophil count 0.0-0.45 [facility] Eosinophils/100 WBC Auto (Bl d)Ordered By: Andres Estrella on 10-01-2024 Eosinophils/100 WBC (Bld) Automated eosinophil % . [facility] Erythrocyte Sedimentation Ra susie 10-01-2024 ESR (Bld) [Velocity] 22 mm/h Normal 0-29 [facility] Comment on above: Result Comment: PERF ORMED BY: [place] [address] PATHOLOGIST MASH PROCESSING OPERATOR EILEEN MCCONNELL M.D. Performed By: #### C UMRSA #### [address] Erythrocyte distribution wid th Auto (RBC) [Ratio]Ordered By: Andres Estrella on 10-01-2024 Erythrocyte distribution width (RBC) [Ratio] Erythrocyte distribution width [Ratio] by Automated count 11.9-15.3 [facility] Erythrocyte sedimentation ra te by Photometric methodOrdered By: Andres Estrella on 10-01-2024 ESR Photometric method (Bld) [Velocity] Erythrocyte sedimentation rate by Photometric method 0-29 [facility] Hematocrit Auto (Bld) [Volum e fraction]Ordered By: Andres Estrella on 10-01-2024 Hematocrit (Bld) [Volume fraction] Hematocrit [Volume Fraction] of Blood by Automated count 34.0-46.4 [facility] Hemoglobin [Mass/volume] in BloodOrdered By: Andres Estrella on 10-01-2024 Hemoglobin (Bld) [Mass/Vol] Hemoglobin [Mass/volume] in Blood 11.8-15.4 [facility] Leukocytes [#/volume] correc michaela for nucleated erythrocytes in Blood by Automated counOrdered By: Andres Estrella on 10-01-2024 WBC corrected for nucl RBC Auto (Bld) [#/Vol] Leukocytes [#/volume] corrected for nucleated erythrocytes in Blood by Automated coun 3.8-11.6 [facility] Lymphocytes Auto (Bld) [#/Vo l]Ordered By: Andres Estrella on 10-01-2024 Lymphocytes (Bld) [#/Vol] Lymphocytes [#/volume] in Blood by Automated count 1.00-4.8 [facility] Lymphocytes/100 WBC Auto (Bl d)Ordered By: Andres Estrella on 10-01-2024 Lymphocytes/100 WBC (Bld) Lymphocytes/100 leukocytes in Blood by Automated count . [facility] MCH Auto (RBC) [Entitic mass ]Ordered By: Andres Estrella on 10-01-2024 MCH (RBC) [Entitic mass] MCH [Entitic ma ss] by Automated count 24.7-34.3 [facility] MCHC Auto (RBC) [Mass/Vol]Or dered By: Andres Estrella on 10-01-2024 MCHC (RBC) [Mass/Vol] MCHC [Mass/volume] by Automated count 32.0-35.0 [facility] MCV Auto (RBC) [Entitic vol] Ordered By: Andres Estrella on 10-01-2024 MCV (RBC) [Entitic vol] MCV [Entitic vol ume] by Automated count 80-100 [facility] Monocytes Auto (Bld) [#/Vol] Ordered By: Andres Estrella on 10-01-2024 Monocytes (Bld) [#/Vol] Automated blood monocyte count 0.0-0.8 [facility] Monocytes/100 WBC Auto (Bld) Ordered By: Andres Estrella on 10-01-2024 Monocytes/100 WBC (Bld) Automated monocyte % . [facility] Neutrophils Auto (Bld) [#/Vo l]Ordered By: Andres Estrella on 10-01-2024 Neutrophils (Bld) [#/Vol] Neutrophils [#/volume] in Blood by Automated count 1.8-7.7 [facility] Neutrophils/100 WBC Auto (Bl d)Ordered By: Andres Estrella on 10-01-2024 Neutrophils/100 WBC (Bld) Automated neutrophil % . [facility] Nucleated erythrocytes [Pres ence] in Blood by Automated countOrdered By: Andres Estrella on 10-01-2024 Nucleated RBC Auto Ql (Bld) Nucleated erythrocytes [Presence] in Blood by Automated count 0-0.5 [facility] Platelet mean volume Auto (B ld) [Entitic vol]Ordered By: Andres Estrella on 10-01-2024 Platelet mean volume (Bld) [Entitic vol] Platelet mean volume [Entitic volume] in Blood by Automated count 6.3-10.7 [facility] Platelets Auto (Bld) [#/Vol] Ordered By: Andres Estrella on 10-01-2024 Platelets (Bld) [#/Vol] Platelets [#/vol ume] in Blood by Automated count 150-450 [facility] RBC Auto (Bld) [#/Vol]Ordere d By: Andres Estrella on 10-01-2024 RBC (Bld) [#/Vol] Erythrocytes [#/volume] in Blood by Automated count 3.60-5.00 [facility] WBC Auto (Bld) [#/Vol]Ordere d By: Andres Estrella on 10-01-2024 WBC (Bld) [#/Vol] Leukocytes [#/volume ] in Blood by Automated count 3.8-11.[address] [facility] [address] shoulder RT wo conon 08-25 CT shoulder RT wo con [facility] [place] [address] [place] [address] CT Scan Report Signed Patient: Emily Schmitt MR#: [id number] : 1955 Acct:[id number] Age/Sex: 69 / F ADM Date: 09/21/24 Loc: CT Room: Type: [facility] Attending Dr: Andres Estrella DO Copies to: Andres Estrella DO Ordering Provider: Andres Estrella DO Date of Service: 09/21/24 CT/CT shoulder RT wo con: Z96.611 - Presence of right artificial shoulder joint CT shoulder RT wo con 09/21/2024 12:27 PM SIGNS AND SYMPTOMS: Right shoulder pain status post fall TECHNIQUE: Multidetector CT axial slices of the right shoulder without IV contrast. Multiplanar and 3-D reformats were performed and viewed on a separate workstation and reviewed to further define anatomy and possible pathology. CT was performed with one or more of the following dose reduction techniques: Automated exposure control, adjustment of the mA and/or kV according to patient size, or use of iterative reconstruction technique. COMPARISON: 09/11/2024 FINDINGS: There is reverse total right shoulder arthroplasty hardware. There is no complication. No acute displaced fracture. No dislocation. Mild hypertrophic changes are noted in the acromioclavicular joint. Visualized right hemithorax is grossly intact. CT/CT shoulder RT wo con IMPRESSION: Reverse total right shoulder arthroplasty is noted without fracture or hardware complication. Impression dictated by: Brian Choe M.D.09/21/2024 2:47 PM Dictation Location: [place] [address] Transcribed By: [facility] 09/21/24 1447 Dictated By: Brian Choe II, MD 09/21/24 144 Signed By: 09/21/24 144 Normal [facility] X-ray reportOrdered By: Pina Hardy on 09-11-2024 Study report [facility] [address] [place] [address] XRay Report Signed Patient: Emily Schmitt MR#: [id number] : 1955 Acct:[id number] Age/Sex: 69 / F ADM Date: 4 [place]: [facility] [place]: Type: REG CLI Attending Dr: Andres Estrella DO Copies to: Andres Estrella DO~ Ordering Provider: Andres Estrella DO Date of Service: 09/11/24 XR/XR shoulder RT min 2V*: Z96.611 - Presence of right artificial shoulder joint RIGHT SHOULDER - 4 views CLINICAL HISTORY: Increasing pain since patient fell out of bed a few days ago. Follow-up shoulder replacement. COMPARISON: 08/27/2024 AP, Y, axillary and Grashey views were obtained. There is osteopenia. A reverse shoulder prosthesis is again visualized. The hardware appears intact and similar to the prior. There is no developing fracture or dislocation. There are no significant soft tissue abnormalities. XR/XR shoulder RT min 2V* IMPRESSION: SIMILAR SHOULDER PROSTHESIS. NO ACUTE BONY INJURY. Impression dictated by: Parul Hardy M.D.09/11/2024 3:36 PM Dictation Location: [place] [address] Transcribed By: [facility] 09/11/24 153 Dictated By: Parul Hardy MD 09/11/24 153 Signed By: 09/11/24 1536 [facility] Work Phone: XR shoulder RT min 2V*on XR shoulder RT min 2V* [facility] [address] [place] [address] XRay Report Signed Patient: Emily Schmitt MR#: [id number] : 1955 Acct:[id number] Age/Sex: 69 / F ADM Date: 09/11/24 Loc[place] [facility] Room: Type: REG CLI Attending Dr: Andres Estrella DO Copies to: Andres Estrella DO Ordering Provider: Andres Estrella DO Date of Service: 09/11/24 XR/XR shoulder RT min 2V*: Z96.611 - Presence of right artificial shoulder joint RIGHT SHOULDER - 4 views CLINICAL HISTORY: Increasing pain since patient fell out of bed a few days ago. Follow-up shoulder replacement. COMPARISON: 08/27/2024 AP, Y, axillary and Grashey views were obtained. There is osteopenia. A reverse shoulder prosthesis is again visualized. The hardware appears intact and similar to the prior. There is no developing fracture or dislocation. There are no significant soft tissue abnormalities. XR/XR shoulder RT min 2V* IMPRESSION: SIMILAR SHOULDER PROSTHESIS. NO ACUTE BONY INJURY. Impression dictated by: Parul Hardy M.D.09/11/2024 3:36 PM Dictation Location: [place] [address] Transcribed By: [facility] 09/11/24 1536 Dictated By: Parul Hardy MD 09/11/24 1534 Signed By: 09/11/24 1536 Normal [facility] Laboratory - Chemistry and C hemistry - challengeon 09-04-2024 Glucose [Mass/Vol] 100 mg/dL 74-106 [facility] XR shoulder RT min 2V*on XR shoulder RT min 2V* [facility] [address] [place] [address] XRay Report Signed Patient: Emily Schmitt MR#: [id number] : 1955 Acct:[id number] Age/Sex: 69 / F ADM Date: 08/27/24 Loc[place] [facility] Room: Type: [facility] Attending Dr: Andres Estrella DO Copies to: Andres Estrella DO Ordering Provider: Andres Estrella DO Date of Service: 08/27/24 XR/XR shoulder RT min 2V*: Z96.611 - Presence of right artificial shoulder joint XR shoulder RT min 2V* 08/27/2024 2:34 PM SIGNS AND SYMPTOMS: Reverse total shoulder arthroplasty, follow-up PROTOCOL: Frontal, Grashey, and scapular Y views of the right shoulder COMPARISON: 06/12/2024 FINDINGS: There is reverse total right shoulder arthroplasty hardware. No hardware complication or malalignment. Mild hypertrophic changes are redemonstrated in the acromion clavicular joint. The visualized right hemithorax is grossly intact. XR/XR shoulder RT min 2V* IMPRESSION: Uncomplicated reverse total right shoulder arthroplasty. No fracture or dislocation. Impression dictated by: Brian Choe M.D.08/27/2024 11:58 PM Dictation Location: [facility] Transcribed By: [facility] 08/27/242357 Dictated By: Brian Choe II, MD 08/27/242357 Signed By: 08/27/242357 Normal [facility] XR shoulder RT min 2V*on XR shoulder RT min 2V* [facility] [address] [place] [address] XRay Report Signed Patient: Emily Schmitt MR#: [id number] : 1955 Acct:[id number] Age/Sex: 69 / F ADM Date: 06/12/24 Loc[place] [facility] Room: Type: [facility] Attending Dr: Andres Estrella DO Copies to: Andres Estrella DO Ordering Provider: Andres Estrella DO Date of Service: 06/12/24 XR/XR shoulder RT min 2V*: Z96.611 - Presence of right artificial shoulder joint 3 views RIGHT shoulder plain film HISTORY: Status post RIGHT 1st shoulder arthroplasty COMPARISON: 06/05/24 ACUTE FINDINGS: None DEGENERATIVE CHANGE: Unremarkable SOFT TISSUE FINDINGS: Unremarkable JOINT EFFUSION: None POSTOP CHANGES: Stable hardware BONY MINERALIZATION: Adequate XR/XR shoulder RT min 2V* IMPRESSION: Stable uncomplicated RIGHT shoulder arthroplasty Impression dictated by: Carlos Silva M.D.06/12/2024 2:16 PM Dictation Location: [place] [address] Transcribed By: [facility] 06/12/24 141 Dictated By: Carlos Silva DO 06/12/241411 Signed By: 08/20/24 1416 Normal [facility] XR shoulder RT min 2V*on XR shoulder RT min 2V* [facility] [address] [place] [address] XRay Report Signed Patient: Emily Schmitt MR#: [id number] : 1955 Acct:[id number] Age/Sex: 69 / F ADM Date: 06/05/24 [place] [facility] Room: Type: [facility] Attending Dr: Andres Estrella DO Copies to: Andres Estrella DO Ordering Provider: Andres Estrella DO Date of Service: 06/05/24 XR/XR shoulder RT min 2V*: Z96.611 - Presence of right artificial shoulder joint RIGHT SHOULDER - 3 views CLINICAL HISTORY: Follow-up reverse shoulder prosthesis COMPARISON: 05/23/2024 AP, Y and Grashey views were obtained. A reverse shoulder prosthesis is again visualized. The hardware appears intact and in appropriate position. There is no acute fracture or dislocation. Minor degenerative change is present at the acromioclavicular joint. There are no significant soft tissue abnormalities. XR/XR shoulder RT min 2V* IMPRESSION: STABLE SHOULDER PROSTHESIS Impression dictated by: Parul Hardy M.D.06/05/2024 2:36 PM Dictation Location: [place] [address] Transcribed By: [facility] 06/05/24 1436 Dictated By: Parul Hardy MD 06/05/24 1435 Signed By: 06/05/24 1436 Normal [facility] [place] 05-23-2024 L Specimen: [id number] Received: 05/23/24 Status: SHEL[facility] Jose Num: [id number] Spec Type: Surgical Subm Dr: Andres Estrella DO Tissues: A Joint/Knee (RT SHOULDER) Procedures: HE/2, Gross/Micro L4, Decalcification Age/ Patient Sex Location Account Attending Physician Emily Schmitt 69/F [place] [id number] Andres Estrella DO SPEC NUM: [id number] RECD: 05/23/24 STATUS: [facility] JOSE NUM: [id number] GERARDO: 05/23/24- [facility] DR: Andres Estrella DO ENTERED: 05/23/24 [facility] DR: SPEC TYPE: Surgical DEPT: S ORDERED: HE/2, Gross/Micro L4, Decalcification ORDERED: HE/2, Gross/Micro L4, Decalcification Pathological Diagnosis Bone and tissue, right shoulder, arthroplasty: Degenerative changes consistent with osteoarthritis. Clinical Information None given Gross Description Received in formalin labeled with the patient's name, date of and bone and tissue right shoulder is a 4.7 cm hemispherical humeral head along with a 3.2 x 1.4 x 0.6 cm aggregate of fibrous soft tissue. The humeral head contains a 2.5 x 2.3 cm area of well- circumscribed granularity on the articular surface. Sectioning reveals yellow spongy bone matrix with no lesions or necrosis present. A gross photo is included. Sheet Rock Finisher sections are submitted in A1 (bone following decalcification) and A2 (soft tissue). CPT Codes 94435 BONE AND TISSUE -------- -------- Specimen: [id number] Received: [facility]/23/24 [id number] Spec Type: Surgical Subm Dr: Andres Estrella DO Tissues: A Joint/Knee (RT SHOULDER) Procedures: HE/2, Gross/Micro L4, Decalcification -------- Patient: Emily Shcmitt [id number] (Continued) -------- Signed (signature on file) Eileen Mcconnell MD 05/24/24 1746 Normal [facility] XR shoulder RT 1Von 05-23-20 XR shoulder RT 1[place] [address] XRay Report Signed Patient: Emily Schmitt MR#: [id number] : 1955 Acct:[id number] Age/Sex: 69 / F ADM Date: 05/23/24 Loc: [place] Room: Type: [facility] Attending Dr: Andres Estrella DO Copies to: Andres Estrella DO Ordering Provider: Andres Estrella DO Date of Service: 05/23/24 XR/XR shoulder RT 1V: POST OP RT SHOULDER Right shoulder one view. Reason for exam: Postop right shoulder arthroplasty. COMPARISON: Intraoperative study performed earlier. FINDINGS: Right shoulder prosthesis without radiographic complication. Soft tissues demonstrate postoperative change. XR/XR shoulder RT 1V IMPRESSION: No evidence of hardware complication. Impression dictated by: Jonny Fine Jr., D.OShanti05/23/2024 2:23 PM Dictation Location: [place] [address] Transcribed By: AXEL 05/23/241422 Dictated By: Jonny Fine Jr, DO 05/23/241421 Signed By: 05/23/24 142 Normal [facility] XR shoulder RT 1V [facility] [place] [address] [place] [address] XRay Report Signed Patient: Emily Schmitt MR#: [id number] : 1955 Acct:[id number] Age/Sex: 69 / F ADM Date: 05/23/24 Loc: [place] Room: Type: [facility] Attending Dr: Andres Estrella DO Copies to: Andres Estrella DO Ordering Provider: Andres Estrella DO Date of Service: 05/23/24 XR/XR shoulder RT 1V: PORT RT SHOULDER Right shoulder one view. Reason for exam: Intraoperative study. FINDINGS: Intraoperative study demonstrates a right shoulder prosthesis in place without radiographic complication. XR/XR shoulder RT 1V IMPRESSION: Intraoperative study with right shoulder prosthesis in place. Impression dictated by: Jonny Fine Jr., D.O.05/23/2024 2:22 PM Dictation Location: [place] [address] Transcribed By: AXEL 05/23/241421 Dictated By: Jonny Fine Jr, DO 05/23/241421 Signed By: 05/23/24 142 Normal [facility] Alanine aminotransferase [En zymatic activity/volume] in Serum or PlasmaOrdered By: Andres Estrella on 05-08-2024 ALT [Catalytic activity/Vol] 29 U/L Normal 7-52 [facility] Comment on above: Performed By: #### C UMRSA #### [address] Albumin [Mass/volume] in Ser um or Plasma by Bromocresol green (BCG) dye binding methoOrdered By: Andres Estrella on 05-08-2024 Albumin BCG dye [Mass/Vol] 4.8 g/dL 3.5-5.7 [facility] Alkaline phosphatase [Enzyma tic activity/volume] in Serum or PlasmaOrdered By: Andres Estrella on 05-08-2024 ALP [Catalytic activity/Vol] 49 U/L Normal 34-104 [facility] Comment on above: Result Comment: PERF ORMED BY: [place] [address] PATHOLOGIST MASH PROCESSING OPERATOR HOSEA CARVALHO M.D. Performed By: #### C UMRSA #### [address] Aspartate aminotransferase [ Enzymatic activity/volume] in Serum or PlasmaOrdered By: Andres Estrella on 05-08-2024 AST [Catalytic activity/Vol] 23 U/L Normal 13-39 [facility] Comment on above: Performed By: #### C UMRSA #### [address] Automated basophil %Ordered By: Andres Estrella on 05-08-2024 Basophils/100 WBC (Bld) 1.2 % Normal . [facility] Comment on above: Performed By: #### C UMRSA #### [address] Automated basophil countOrde red By: Andres Estrella on 05-08-2024 Basophils (Bld) [#/Vol] 0.1 10*3/uL Normal 0.0-0.2 [facility] Comment on above: Result Comment: PERF ORMED BY: [place] [address] PATHOLOGIST MASH PROCESSING OPERATOR HOSEA CARVALHO M.D. Performed By: #### C UMRSA #### [address] Automated blood monocyte cou ntOrdered By: Andres Estrella on 05-08-2024 Monocytes (Bld) [#/Vol] 0.7 10*3/uL Normal 0.0-0.8 [facility] Comment on above: Performed By: #### C UMRSA #### [address] Automated eosinophil %Ordere d By: Andres Estrella on 05-08-2024 Eosinophils/100 WBC (Bld) 2.1 % Normal . [facility] Comment on above: Performed By: #### C UMRSA #### [address] Automated eosinophil countOr dered By: Andres Estrella on 05-08-2024 Eosinophils (Bld) [#/Vol] 0.2 10*3/uL Normal 0.0-0.45 [facility] Comment on above: Performed By: #### C UMRSA #### [address] Automated monocyte %Ordered By: Andres Estrella on 05-08-2024 Monocytes/100 WBC (Bld) 9.9 % Normal . [facility] Comment on above: Performed By: #### C UMRSA #### [address] Automated neutrophil %Ordere d By: Andres Estrella on 05-08-2024 Neutrophils/100 WBC (Bld) 64.2 % Normal . [facility] Comment on above: Performed By: #### C UMRSA #### [address] Bacteria [Presence] in Urine by AutomatedOrdered By: Andres Estrella on 05-08-2024 Bacteria Auto Ql (U) None seen [HPF] None Seen [facility] Bilirubin Test strip Ql (U)O rdered By: Andres Estrella on 05-08-2024 Bilirubin Ql (U) Negative Negative [facility] Bilirubin.total [Mass/volume ] in Serum or PlasmaOrdered By: Andres Estrella on 05-08-2024 Bilirubin [Mass/Vol] 0.4 mg/dL Normal 0.3-1.0 [facility] Comment on above: Performed By: #### C UMRSA #### [address] CMP with reflex to A1Con Albumin [Mass/Vol] 4.8 g/dL Normal 3.5-5.7 [facility] Comment on above: Performed By: #### C UMRSA #### [place] [address] [place] GFR/1.73 sq M.predicted MDRD (S/P/Bld) [Vol rate/Area] mL/min/{1.73_m2} Normal [facility] Comment on above: Performed By: #### C UMRSA #### [place] [address] [place] Calcium [Mass/volume] in Ser um or PlasmaOrdered By: Andres Estrella on 05-08-2024 Calcium [Mass/Vol] 9.3 mg/dL Normal 8.6-10.3 [facility] Comment on above: Performed By: #### C UMRSA #### [address] Carbon dioxide, total [Moles /volume] in Serum or PlasmaOrdered By: Andres Estrella on 05-08-2024 CO2 [Moles/Vol] 25.8 mmol/L Normal 21.0-31.0 [facility] Comment on above: Performed By: #### C UMRSA #### [place] [address] [place] Chloride [Moles/volume] in S keyon or PlasmaOrdered By: Andres Estrella on 05-08-2024 Chloride [Moles/Vol] 101 mmol/L Normal 98-107 [facility] Comment on above: Performed By: #### C UMRSA #### [address] Color of Urine by AutoOrdere d By: Andres Estrella on 05-08-2024 Color (U) Colorless Normal Yellow [facility] Comment on above: Order Comment: Name Collection Type:: Clean-Voided Midstream Performed By: #### A DDONUAPLUS #### [address] Complete Blood Count Auto Di ffon 05-08-2024 Mean Corpuscular HGB Conc 34.0 g/dL Normal 32.0-35.0 [facility] Comment on above: Performed By: #### C UMRSA #### [address] NRBC% 0.0 /100{WBC} Normal 0-0.5 [facility] Comment on above: Performed By: #### C UMRSA #### [address] Creatinine [Mass/volume] in Serum or PlasmaOrdered By: Andres Estrella on 05-08-2024 Creatinine [Mass/Vol] 0.77 mg/dL Normal 0.60-1.[address] [facility] Comment on above: Performed By: #### C UMRSA #### [address] Dipstick and Microscopicon 0 05-08-2024 Bacteria,Urine None Seen Normal None Seen [facility] Comment on above: Order Comment: Name Collection Type:: Clean-Voided Midstream Performed By: #### A DDONUAPLUS #### [address] Bilirubin,Urine Negative Normal Negative [facility] Comment on above: Order Comment: Name Collection Type:: Clean-Voided Midstream Performed By: #### A DDONUAPLUS #### [address] Glucose Ql (U) Normal Normal Normal [facility] Comment on above: Order Comment: Name Collection Type:: Clean-Voided Midstream Performed By: #### A DDONUAPLUS #### [place] [address] [place] Hyaline Casts,Urine None Normal 0-8 [facility] Comment on above: Order Comment: Name Collection Type:: Clean-Voided Midstream Performed By: #### A DDONUAPLUS #### [place] [address] [place] Mucus,Urine Rare Normal [facility] Comment on above: Order Comment: Name Collection Type:: Clean-Voided Midstream Result Comment: PERF ORMED BY: [place] [address] PATHOLOGIST MASH PROCESSING OPERATOR HOSEA CARVALHO M.D. Performed By: #### A DDONUAPLUS #### [place] [address] [place] Nitrite,Urine Negative Normal Negative [facility] Comment on above: Order Comment: Name Collection Type:: Clean-Voided Midstream Performed By: #### A DDONUAPLUS #### [place] [address] [place] Occult Blood,Urine Negative Normal Negative [facility] Comment on above: Order Comment: Name Collection Type:: Clean-Voided Midstream Result Comment: PERF ORMED BY: [place] [address] PATHOLOGIST MASH PROCESSING OPERATOR HOSEA CARVALHO M.D. Performed By: #### A DDONUAPLUS #### [place] [address] [place] Protein,Urine Negative Normal Negative [facility] Comment on above: Order Comment: Name Collection Type:: Clean-Voided Midstream Performed By: #### A DDONUAPLUS #### [place] [address] [place] RBC,Urine 1-2 Normal 0-4 [facility] Comment on above: Order Comment: Name Collection Type:: Clean-Voided Midstream Performed By: #### A DDONUAPLUS #### [place] [address] [place] Specificy [place],Urine 1.007 Normal 1.001-1.030 [facility] Comment on above: Order Comment: Name Collection Type:: Clean-Voided Midstream Performed By: #### A DDONUAPLUS #### [place] [address] [place] Squamous Epithelial Cell,Urine 1-2 Normal 0-2 [facility] Comment on above: Order Comment: Name Collection Type:: Clean-Voided Midstream Performed By: #### A DDONUAPLUS #### [place] [address] [place] Urobilinogen,Urine Normal Normal Normal [facility] Comment on above: Order Comment: Name Collection Type:: Clean-Voided Midstream Performed By: #### A DDONUAPLUS #### [address] WBC,Urine 3-4 Normal 0-4 [facility] Comment on above: Order Comment: Name Collection Type:: Clean-Voided Midstream Performed By: #### A DDONUAPLUS #### [address] EBS A1C with Estimated Ave G luon 05-08-2024 Glucose [Mass/Vol] 126 mg/dL Normal [facility] Comment on above: Result Comment: PERF ORMED BY: [place] [address] PATHOLOGIST MASH PROCESSING OPERATOR HOSEA CARVALHO M.D. Performed By: #### C UMRSA #### [address] EBS A1C with Estimated Ave G luOrdered By: Andres Estrella on 05-08-2024 HbA1c (Bld) [Mass fraction] 6.0 % High 4.3-5.6 [facility] Comment on above: Increased risk for d iabetes: 5.7 - 6.4diabetes: >6.4glycemic control for adults with diabetes: <7.0 Result Comment: Incr eased risk for diabetes: 5.7 - 6.4 diabetes: >6.4 glycemic control for adults with diabetes: <7.0 Performed By: #### C UMRSA #### [address] ECG 12 lead ECGon 05-08-2024 ECG 12 lead ECG [facility] [place] [address] [place] [address] Electrocardiograph Report Signed Patient: Emily Schmitt MR#: [id number] : 1955 Acct:[id number] Age/Sex: 69 / F ADM Date: 05/08/24 Loc: Room: Type: [facility] Attending Dr: Andres Estrella DO Ordering Provider: Andres Estrella DO Date of Service: 05/08/24 ECG/ECG 12 lead ECG: RIGHT REVERSE TOTAL SHOULDER ARTHROPLASTY Copies to: Test Reason : Blood Pressure : */* mmHG Vent. Rate : 82 BPM Atrial Rate : 82 BPM P-R Int : 152 ms QRS Dur : 94 ms QT Int : 408 ms P-R-T Axes : 71 15 64 degrees QTcB Int : 476 ms Normal sinus rhythm Normal ECG No previous ECGs available Confirmed by ISIDRO [facility] ([id number]) on 05/08/2024 4:48:36 PM Referred By: Electronically Signed By: TARI FELIX MD [facility] Transcribed By: MUS Signed By Diego Felix MD 05/08/24 9617 Normal [facility] Epithelial cells.squamous [# /area] in Urine sediment by Automated countOrdered By: Andres Estrella on 05-08-2024 Epithelial cells.squamous Auto (Urine sed) [#/Area] 1-2 [HPF] 0-2 [facility] Erythrocyte distribution wid th [Ratio] by Automated countOrdered By: Andres Estrella on 05-08-2024 Erythrocyte distribution width (RBC) [Ratio] 13.6 % Normal 11.9-15.3 [facility] Comment on above: Performed By: #### C UMRSA #### [facility] [address] [place] [address] Erythrocytes [#/area] in Uri ne sediment by Automated countOrdered By: Andres Estrella on 05-08-2024 RBC Auto (Urine sed) [#/Area] 1-2 [HPF] 0-4 [facility] Erythrocytes [#/volume] in B lood by Automated countOrdered By: Andres Estrella on 05-08-2024 RBC (Bld) [#/Vol] 4.06 10*6/uL Normal 3.60-5.00 [facility] Comment on above: Performed By: #### C UMRSA #### [facility] [address] [place] [address] [place] Glucose [Mass/volume] in Ser um or PlasmaOrdered By: Andres Estrella on 05-08-2024 Glucose [Mass/Vol] 108 mg/dL High 70-100 [facility] Comment on above: ADA recommended refe rence range Result Comment: ADA recommended reference range Performed By: #### C UMRSA #### [address] Glucose [Mass/volume] in Uri ne by Test stripOrdered By: Andres Estrella on 05-08-2024 Glucose Test strip (U) [Mass/Vol] Normal mg/dL Normal [facility] Glucose mean value [Mass/vol ume] in Blood Estimated from glycated hemoglobinOrdered By: Andres Estrella on 05-08-2024 Average glucose Estimated from glycated hemoglobin (Bld) [Mass/Vol] 126 mg/dL [facility] Hematocrit [Volume Fraction] of Blood by Automated countOrdered By: Andres Estrella on 05-08-2024 Hematocrit (Bld) [Volume fraction] 39.4 % Normal 34.0-46.4 [facility] Comment on above: Performed By: #### C UMRSA #### [address] Hemoglobin Test strip Ql (U) Ordered By: Andres Estrella on 05-08-2024 Hemoglobin Ql (U) Negative Negative [facility] Hemoglobin [Mass/volume] in BloodOrdered By: Andres Estrella on 05-08-2024 Hemoglobin (Bld) [Mass/Vol] 13.4 g/dL Normal 11.8-15.4 [facility] Comment on above: Performed By: #### C UMRSA #### [place] [address] [place] Hyaline casts [#/area] in Ur ine sediment by Automated countOrdered By: Andres Estrella on 05-08-2024 Hyaline casts Auto (Urine sed) [#/Area] None [LPF] 0-8 [facility] Ketones [Presence] in Urine by Test stripOrdered By: Andres Estrella on 05-08-2024 Ketones Ql (U) Negative Normal Negative [facility] Comment on above: Order Comment: Name Collection Type:: Clean-Voided Midstream Performed By: #### A DDONUAPLUS #### [address] [place] [address] [place] Leukocyte esterase [Presence ] in Urine by Test stripOrdered By: Andres Estrella on 05-08-2024 Leukocyte esterase Test strip Ql (U) 1+ High Negative [facility] Comment on above: Order Comment: Name Collection Type:: Clean-Voided Midstream Performed By: #### A DDONUAPLUS #### [facility] [address] [place] [address] [place] Leukocytes [#/area] in Urine sediment by Automated countOrdered By: Andres Estrella on 05-08-2024 WBC Auto (Urine sed) [#/Area] 3-4 [HPF] 0-4 [facility] Leukocytes [#/volume] correc michaela for nucleated erythrocytes in Blood by Automated counOrdered By: Andres Estrella on 05-08-2024 WBC corrected for nucl RBC Auto (Bld) [#/Vol] 7.3 10*3/uL 3.8-11.6 [facility] Leukocytes [#/volume] in Blo od by Automated countOrdered By: Andres Estrella on 05-08-2024 WBC (Bld) [#/Vol] 7.3 10*3/uL Normal 3.8-11.6 [facility] Comment on above: Performed By: #### C UMRSA #### [facility] [address] [place] [address] [place] Lymphocytes [#/volume] in Bl ood by Automated countOrdered By: Andres Estrella on 05-08-2024 Lymphocytes (Bld) [#/Vol] 1.6 10*3/uL Normal 1.00-4.8 [facility] Comment on above: Performed By: #### C UMRSA #### [facility] [address] [place] [address] [place] Lymphocytes/100 leukocytes i n Blood by Automated countOrdered By: Andres Estrella on 05-08-2024 Lymphocytes/100 WBC (Bld) 22.6 % Normal . [facility] Comment on above: Performed By: #### C UMRSA #### [facility] [address] [place] [address] [place] MCH [Entitic mass] by Automa michaela countOrdered By: Andres Estrella on 05-08-2024 MCH (RBC) [Entitic mass] 33.0 pg Normal 24.7-34.3 [facility] Comment on above: Performed By: #### C UMRSA #### [facility] [address] [place] [address] MCHC Auto (RBC) [Mass/Vol]Or dered By: Andres Estrella on 05-08-2024 MCHC (RBC) [Mass/Vol] 34.0 g/dL 32.0-35.[address] [facility] MCV [Entitic volume] by Auto mated countOrdered By: Andres Estrella on 05-08-2024 MCV (RBC) [Entitic vol] 97.2 fL Normal 80-100 [facility] Comment on above: Performed By: #### C UMRSA #### [facility] [address] [place] [address] MRSA Cultureon 05-08-2024 MRSA Culture MRSA Culture Results No MRSA Isolated 2 Days PERFORMED BY: [place] [address] PATHOLOGIST MASH PROCESSING OPERATOR HOSEA CARVALHO M.D. Normal [facility] Comment on above: Performed By: #### C UMRSA #### [facility] [address] [place] [address] Mucus [Presence] in Urine by AutomatedOrdered By: Andres Estrella on 05-08-2024 Mucus Auto Ql (U) Rare [LPF] [facility] Neutrophils [#/volume] in Bl ood by Automated countOrdered By: Andres Estrella on 05-08-2024 Neutrophils (Bld) [#/Vol] 4.7 10*3/uL Normal 1.8-7.7 [facility] Comment on above: Performed By: #### C UMRSA #### [facility] [address] [place] [address] Nitrite Test strip Ql (U)Ord ered By: Andres Estrella on 05-08-2024 Nitrite Ql (U) Negative Negative [facility] No Panel InformationOrdered By: Andres Estrella on 05-08-2024 Estimated GFR (CKD-EPI) > 60.0 mL/Min [facility] Creatinine Clearance (Chem N/A [facility] Nucleated erythrocytes [Pres ence] in Blood by Automated countOrdered By: Andres Estrella on 05-08-2024 Nucleated RBC Auto Ql (Bld) 0.0 /100{WBC} 0-0.5 [facility] Platelet mean volume [Entiti c volume] in Blood by Automated countOrdered By: Andres Estrella on 05-08-2024 Platelet mean volume (Bld) [Entitic vol] 7.7 fL Normal 6.3-10.7 [facility] Comment on above: Performed By: #### C UMRSA #### [facility] [address] [place] [address] Platelets [#/volume] in Bloo d by Automated countOrdered By: Andres Estrella on 05-08-2024 Platelets (Bld) [#/Vol] 296 10*3/uL Normal 150-450 [facility] Comment on above: Performed By: #### C UMRSA #### [facility] [address] [place] [address] Potassium [Moles/volume] in Serum or PlasmaOrdered By: Andres Estrella on 05-08-2024 Potassium [Moles/Vol] 4.2 mmol/L Normal 3.5-5.[address] [facility] Comment on above: Performed By: #### C UMRSA #### [facility] [address] [place] [address] Protein Test strip (U) [Mass /Vol]Ordered By: Andres Estrella on 05-08-2024 Protein (U) [Mass/Vol] Negative Negative [facility] Protein [Mass/volume] in Ser um or PlasmaOrdered By: Andres Estrella on 05-08-2024 Protein [Mass/Vol] 7.3 g/dL Normal 6.4-8.9 [facility] Comment on above: Performed By: #### C UMRSA #### [facility] [address] [place] [address] Serum globulin measurement b y calculation (mass/volume)Ordered By: Andres Estrella on 05-08-2024 Globulin (S) [Mass/Vol] 2.5 g/dL Normal F [facility] Comment on above: Performed By: #### C UMRSA #### [address] Serum or plasma albumin/glob ulin mass ratioOrdered By: Andres Estrella on 05-08-2024 Albumin/Globulin [Mass ratio] 1.9 {ratio} Normal [facility] Comment on above: Performed By: #### C UMRSA #### [address] Serum or plasma anion gap de terminationOrdered By: Andres Estrella on 05-08-2024 Anion gap [Moles/Vol] 13.4 mmol/L Normal 6.0-15.0 [facility] Comment on above: Performed By: #### C UMRSA #### [address] Sodium [Moles/volume] in Ser um or PlasmaOrdered By: Andres Estrella on 05-08-2024 Sodium [Moles/Vol] 136 mmol/L Normal 136-145 [facility] Comment on above: Performed By: #### C UMRSA #### [address] Specific gravity Test strip (U) [Rel density]Ordered By: Andres Estrella on 05-08-2024 Specific gravity (U) [Rel density] 1.007 1.001-1.030 [facility] Urea nitrogen [Mass/volume] in Serum or PlasmaOrdered By: Andres Estrella on 05-08-2024 Urea nitrogen [Mass/Vol] 16 mg/dL Normal 7-25 [facility] Comment on above: Performed By: #### C UMRSA #### [address] Urine appearanceOrdered By: Andres Estrella on 05-08-2024 Appearance (U) Clear Normal Clear [facility] Comment on above: Order Comment: Name Collection Type:: Clean-Voided Midstream Performed By: #### A DDONUAPLUS #### [facility] [address] [place] [address] Urobilinogen Test strip (U) [Mass/Vol]Ordered By: Andres Estrella on 05-08-2024 Urobilinogen (U) [Mass/Vol] Normal mg/dL Normal [facility] Wound methicillin resistant Staphylococcus aureus (MRSA) cultureOrdered By: Andres Estrella on 05-08-2024 MRSA isol Org specific cx Ql (Unsp spec) [facility] pH of Urine by Test stripOrd ered By: Andres Estrella on 05-08-2024 pH (U) 5.0 [pH] Normal 5.0-9.0 [facility] Comment on above: Order Comment: Name Collection Type:: Clean-Voided Midstream Performed By: #### A DDONUAPLUS #### [address] shoulder RT wo conon 06-0 CT shoulder RT wo con [facility] [place] [address] [place] [address] CT Scan Report Signed Patient: Emily Schmitt MR#: [id number] : 1955 Acct:[id number] Age/Sex: 68 / F ADM Date: 03/28/24 Loc: CT Room: Type: [facility] Attending Dr: Andres Estrella DO Copies to: Andres Estrella DO Ordering Provider: Andres Estrella DO Date of Service: 03/28/24 CT/CT shoulder RT wo con: with Tornier protocol CT RIGHT shoulder without contrast TECHNIQUE: The CT exam was performed using one or more the following dose reduction techniques: Automated exposure control, adjustment of the MA and/or Kv according to patient size, or use of the iterative reconstruction technique. COMPARISON: None HISTORY: Surgical planning. Rotator cuff tear The proximal humerus intact. Glenohumeral and minimal spurring. Adequate joint space. Elevated positioning of the humeral head. Intact coracoid process. Intact the glenoid. No bony Bankart lesion. Intact scapula. Acromioclavicular spurring. Intact acromion. Intact clavicle. Unremarkable visualized ribs. Unremarkable RIGHT lung. Unremarkable soft tissues. Marked narrowing of the acromiohumeral space corresponding with rotator cuff tear. Spurring of the tip of the acromium. Downsloping of the acromion. Flat undersurface of the acromion. CT/CT shoulder RT wo con IMPRESSION: Acromiohumeral narrowing corresponds with patient's history of rotator cuff tear. Acromioclavicular spurring. Spurring of the tip of the acromium. Mild glenohumeral degeneration. Impression dictated by: Carlos Silva M.D.03/28/2024 5:55 PM Dictation Location: [place] [address] Transcribed By: [facility] 03/28/241754 Dictated By: Carlos Silva DO 03/28/241737 Signed By: 03/28/241754 Normal [facility] CBC AUTO DIFFon 10-22-2022 BASO # 0.1 103/ul Normal 0.0-0.1 [facility] Comment on above: Performed By: #### C BC #### [facility] [address] [place] [address] [address] Shea Howell Basophils/100 WBC (Bld) 1.0 % Normal 0.2-2.0 [facility] Comment on above: Performed By: #### C BC #### [facility] [address] [place] [address] [address] Shea Howell EO # 0.1 103/ul Normal 0.0-0.7 [facility] Comment on above: Performed By: #### C BC #### [facility] [address] [place] [address] [address] Shea Howell Eosinophils/100 WBC (Bld) 1.2 % Normal 0.9-7.0 [facility] Comment on above: Performed By: #### C BC #### [facility] [address] [place] [address] [address] Shea Howell Erythrocyte distribution width (RBC) [Ratio] 13.5 % Normal 11.0-15.0 [facility] Comment on above: Performed By: #### C BC #### [facility] [address] [place] [address] Dr. Shea Howell Hematocrit (Bld) [Volume fraction] 41.3 % Normal 36.0-48.0 [facility] Comment on above: Performed By: #### C BC #### [facility] [address] [place] [address] Dr. Shea Howell Hemoglobin (Bld) [Mass/Vol] 13.9 g/dL Normal 12.0-16.0 [facility] Comment on above: Performed By: #### C BC #### [facility] [address] [place] [address] Dr. Shea Howell IG # 0.02 10e3/ul Normal 0.00-0.03 [facility] Comment on above: Performed By: #### C BC #### [facility] [address] [place] [address] Dr. Shea Howell IG % 0.2 % Normal 0.0-0.5 [facility] Comment on above: Performed By: #### C BC #### [facility] [address] [place] [address] Dr. Shea Howell LYMPH # 1.8 103/ul Normal 1.2-3.8 [facility] Comment on above: Performed By: #### C BC #### [facility] [address] [place] [address] Dr. Shea Howell Lymphocytes/100 WBC (Bld) 21.4 % Normal 20.5-60.0 [facility] Comment on above: Performed By: #### C BC #### [facility] [address] [place] [address] Dr. Shea Howell MANUAL DIFF REQ NO Normal [facility] Comment on above: Performed By: #### C BC #### [facility] [address] [place] [address] Dr. Shea Howell MCH (RBC) [Entitic mass] 33.2 pg Normal 26.7-34.0 [facility] Comment on above: Performed By: #### C BC #### [facility] [address] [place] [address] [address] Shea Howell MCHC (RBC) [Mass/Vol] 33.7 g/dL Normal 29.9-35.2 [facility] Comment on above: Performed By: #### C BC #### [facility] [address] [place] [address] [address] Shea Howell MCV (RBC) [Entitic vol] 98.6 fL Normal 81.0-99.0 [facility] Comment on above: Performed By: #### C BC #### [facility] [address] [place] [address] Dr. Shea Howell MONO # 0.8 103/ul Normal 0.3-0.8 [facility] Comment on above: Performed By: #### C BC #### [facility] [address] [place] [address] Dr. Shea Howell Monocytes/100 WBC (Bld) 9.3 % Normal 1.7-12.0 [facility] Comment on above: Performed By: #### C BC #### [facility] [address] [place] [address] Dr. Shea Howell NEUT # 5.6 103/ul Normal 1.4-6.5 [facility] Comment on above: Performed By: #### C BC #### [facility] [address] [place] [address] Dr. Shea Howell Neutrophils/100 WBC (Bld) 66.9 % Normal 43.0-75.0 [facility] Comment on above: Performed By: #### C BC #### [facility] [address] [place] [address] Dr. Shea Howell Platelet mean volume (Bld) [Entitic vol] 9.2 fL Critically low 9.5-13.5 [facility] Comment on above: Performed By: #### C BC #### [facility] [address] [place] [address] Dr. Shea Howell PLT 353 103/ul Normal 150-450 [facility] Comment on above: Performed By: #### C BC #### [facility] [address] [place] [address] [address] Shea Howell RBC 4.19 106/ul Critically low 4.20-5.40 [facility] Comment on above: Performed By: #### C BC #### [facility] [address] [place] [address] [address] Shea Howell WBC 8.4 103/ul Normal 4.0-11.0 [facility] Comment on above: Performed By: #### C BC #### [facility] [address] [place] [address] [address] Shea Howell LIPID PROFILEon 10-22-2022 CHOL-HDL RATIO NORM SEE BELOW Normal [facility] Comment on above: Result Comment: 3.3 - 4.4 LOW RISK 4.4 - 7.1 AVERAGE RISK 7.1 - 11.0 MODERATE RISK >11.0 HIGH RISK Performed By: #### B MP, LIPID #### [facility] [address] [place] [address] Dr. Shea Howell Cholesterol [Mass/Vol] 224 mg/dL Critically high <=200 [facility] Comment on above: Performed By: #### B MP, LIPID #### [facility] [address] [address] [address] Shea Howell Cholesterol in HDL [Mass/Vol] 78 mg/dL Critically high 40-60 [facility] Comment on above: Performed By: #### B MP, LIPID #### [facility] [address] [place] [address] [address] Shea Howell Cholesterol in LDL [Mass/Vol] 109.8 mg/dL Normal [facility] Comment on above: Performed By: #### B MP, LIPID #### [facility] [address] [place] [address] [address] Shea Howell Cholesterol.total/Choles terol in HDL [Mass ratio] 2.9 {ratio} Normal [facility] Comment on above: Performed By: #### B MP, LIPID #### [facility] [address] [address] [address] Shea Howell HDL NORMAL > or = 60 mg/dl - LO W CARDIOVASCULAR RISK <40 mg/dl - HIGH CARDIOVASCULAR RISK Normal [facility] Comment on above: Performed By: #### B MP, LIPID #### [facility] [address] [address] [address] Shea Howell LDL CALC NORMAL SEE BELOW Normal [facility] Comment on above: Result Comment: <100 mg/dl OPTIMAL 100 - 129 mg/dl NEAR OR ABOVE OPTIMAL 130 - 159 mg/dl BORDERLINE HIGH 160 - 189 mg/dl HIGH >190 mg/dl VERY HIGH Performed By: #### B MP, LIPID #### [facility] [address] [address] [address] Shea Howell Triglyceride [Mass/Vol] 181 mg/dL Critically high <=150 [facility] Comment on above: Performed By: #### B MP, LIPID #### [facility] [address] [place] [address] Dr. Shea Howell VLDL CALC 36.2 mg/dL Normal [facility] Comment on above: Performed By: #### B MP, LIPID #### [facility] [address] [place] [address] Dr. Shea Howell PROF CHEM 8 (BAS METB)on Anion gap [Moles/Vol] 14.7 mmol/L Normal [facility] Comment on above: Performed By: #### B MP, LIPID #### [facility] [address] [place] [address] Dr. Shea Howell Calcium [Mass/Vol] 9.4 mg/dL Normal 8.5-10.1 [facility] Comment on above: Performed By: #### B MP, LIPID #### [facility] [address] [address] [address] Shea Howell Chloride [Moles/Vol] 95 mmol/L Critically low 98-107 [facility] Comment on above: Performed By: #### B MP, LIPID #### [facility] [address] [address] [address] Shea Howell CO2 [Moles/Vol] 27.8 mmol/L Normal 21.0-32.0 [facility] Comment on above: Performed By: #### B MP, LIPID #### [facility] [address] [address] [address] Shea Howell Creatinine [Mass/Vol] 0.77 mg/dL Normal 0.55-1.02 [facility] Comment on above: Performed By: #### B MP, LIPID #### [facility] [address] [address] [address] Shae Howell EGFR-AF GUAMANIAN >60 Normal >=60 [facility] Comment on above: Performed By: #### B MP, LIPID #### [facility] [address] [address] [address] Shea Howell EGFR-NON AF GUAMANIAN >60 Normal >=60 [facility] Comment on above: Performed By: #### B MP, LIPID #### [facility] [address] [place] [address] Dr. Shea Howell Glucose [Mass/Vol] 111 mg/dL Critically high 74-106 T [facility] Comment on above: Performed By: #### B MP, LIPID #### [facility] [address] [place] [address] Dr. Shea Howell Potassium [Moles/Vol] 4.5 mmol/L Normal 3.5-5.1 [facility] Comment on above: Performed By: #### B MP, LIPID #### [facility] [address] [place] [address] Dr. Shea Howell Sodium [Moles/Vol] 133 mmol/L Critically low 136-145 Th [facility] Comment on above: Performed By: #### B MP, LIPID #### [facility] [address] [place] [address] Dr. Shea Howell Urea nitrogen [Mass/Vol] 10.0 mg/dL Normal 7.0-18.0 [facility] Comment on above: Performed By: #### B MP, LIPID #### [facility] [address] [place] [address] Dr. Shea Howell Urea nitrogen/Creatinine [Mass ratio] 13.0 mg/mg Normal [facility] Comment on above: Performed By: #### B MP, LIPID #### [facility] [address] [place], [place] [address] Dr. Shea Howell MG MAMM SCREEN 3D IRMA CADon 10-21-2022 MG MAMM SCREEN 3D IRMA CAD Patient: EMILY SCHMITT Exam Date: 10/21/2022 : 1955 Gender:F Ordering : DR TIRSO BARNEY D.O. Admission #: [id number] Family : Order #: [id number] CLICK HERE TO VIEW EXAM RADIOLOGY REPORT [...] bladder cancer at age 59. LOCATION: [facility] BREAST COMPOSITION: Scattered areas fibroglandular density. FINDINGS: [...] Beckford MD on 10/22/2022 at 07:16 Normal [facility] XR FOOT RT MIN 3 VIEWSon [...] by: GURPREET KIM Date: 2022-10-06 18:26 Normal [facility] MRI LSPINE WO CONon 05-07-20 22 MRI LSPINE WO CON EXAMINATION: MRI LSPINE WO CON HISTORY: Lumbosacral spondylosis with radiculopathy COMPARISON: [...] by: JOANN BECKFORD Date: 2022-05-06 22:24 Normal [facility] XR LSPINE 2_3 VIEWSon 2021 XR [...] by: MAURILIO MENDEZ Date: 2022-03-16 15:35 Normal [facility] PROGRESSon 10-31-2018 Protein mass conc HNO ID: [id number]: Jayda Meyer RsrchService: (none)Author Type: (none)Type: Progress NotesFiled: 10/31/2018 4:23 PMNote Text:Came as the Caregiver for the [place] FINE Study [id number] IRB [id number].Details of study are under her 's chart. Normal [facility] Vital Signs Date Time Vital Sign Value Performing Clinician Facility 10-30-2024 13:35-0500 Body height 160.02 cm Tirso Ball DO Work Phone: [facility] 10-30-2024 13:35-0500 Body mass index (BMI) [Ratio] 42 kg/m2 Tirso Ball DO Work Phone: [facility] 10-30-2024 13:35-0500 Body weight 107.5 kg Tirso Ball DO Work Phone: [facility] 10-30-2024 13:35-0500 Diastolic blood pressure 73 mm[Hg] Tirso Ball DO Work Phone: [facility] 10-30-2024 13:35-0500 Heart rate 91 /min Tirso Ball DO Work Phone: [facility] 10-30-2024 13:35-0500 Respiratory rate 12 /min Tirso Ball DO Work Phone: [facility] 10-30-2024 13:35-0500 Systolic blood pressure 128 mm[Hg] Tirso Ball DO Work Phone: [facility] 06-29-2024 13:25-0400 Body height 160.02 cm DO Tirso Ball Work Phone: [facility] 06-29-2024 13:25-0400 Body mass index (BMI) [Ratio] 41.1 kg/m2 DO Tirso Ball Work Phone: [facility] 06-29-2024 13:25-0400 Body weight 105.34 kg DO Tirso Ball Work Phone: [facility] 06-29-2024 13:25-0400 Diastolic blood pressure 85 mm[Hg] DO Tirso Ball Work Phone: [facility] 06-29-2024 13:25-0400 Heart rate 84 /min DO Tirso Ball Work Phone: [facility] 06-29-2024 13:25-0400 Respiratory rate 12 /min DO Tirso Ball Work Phone: [facility] 06-29-2024 13:25-0400 Systolic blood pressure 134 mm[Hg] DO Tirso Ball Work Phone: [facility] 05-23-2024 10:45-0400 Diastolic blood pressure 53 mm[Hg] DO Tirso Ball Work Phone: [facility] 05-23-2024 10:45-0400 Heart rate 101 /min DO Tirso Ball Work Phone: [facility] 05-23-2024 10:45-0400 Respiratory rate 16 /min DO Tirso Ball Work Phone: [facility] 05-23-2024 10:45-0400 SaO2% (BldA) [Mass fraction] 93 % DO Tirso Ball Work Phone: [facility] 05-23-2024 10:45-0400 Systolic blood pressure 96 mm[Hg] DO Tirso Ball Work Phone: [facility] 05-23-2024 10:05-0400 Body temperature 98 [degF] DO Tirso Ball Work Phone: [facility] 05-23-2024 09:40-0400 Inhaled oxygen flow rate 8 L/min DO Tirso Ball Work Phone: [facility] 05-23-2024 06:46-0400 Body height 160.02 cm DO Tirso Ball Work Phone: [facility] 05-23-2024 06:46-0400 Body mass index (BMI) [Ratio] 41.3 kg/m2 DO Tirso Ball Work Phone: [facility] 05-23-2024 06:46-0400 Body weight 106 kg DO Tirso Ball Work Phone: [facility] 05-14-2024 15:11-0400 Body height 160.02 cm DO Tirso Ball Work Phone: [facility] 05-14-2024 15:11-0400 Body mass index (BMI) [Ratio] 42 kg/m2 DO Tirso Ball Work Phone: [facility] 05-14-2024 15:11-0400 Body weight 107.55 kg DO Tirso Ball Work Phone: [facility] 05-14-2024 15:11-0400 Diastolic blood pressure 78 mm[Hg] DO Tirso Ball Work Phone: [facility] 05-14-2024 15:11-0400 Heart rate 89 /min DO Tirso Ball Work Phone: [facility] 05-14-2024 15:11-0400 Respiratory rate 12 /min DO Tirso Ball Work Phone: [facility] 05-14-2024 15:11-0400 Systolic blood pressure 120 mm[Hg] DO Tirso Ball Work Phone: [facility] 03-27-2024 13:35-0400 Body height 160.02 cm DO Tirso Ball Work Phone: [facility] 03-27-2024 13:35-0400 Body mass index (BMI) [Ratio] 40.9 kg/m2 DO Tirso Ball Work Phone: [facility] 03-27-2024 13:35-0400 Body weight 104.83 kg DO Tirso Ball Work Phone: [facility] 03-27-2024 13:35-0400 Diastolic blood pressure 73 mm[Hg] DO Tirso Ball Work Phone: [facility] 03-27-2024 13:35-0400 Heart rate 92 /min DO Tirso Ball Work Phone: [facility] 03-27-2024 13:35-0400 Respiratory rate 16 /min DO Tirso Ball Work Phone: [facility] 03-27-2024 13:35-0400 Systolic blood pressure 107 mm[Hg] DO Tirso Ball Work Phone: [facility] 02-23-2024 14:13-0400 Body height 160.02 cm DO Tirso Ball Work Phone: [facility] 02-23-2024 14:13-0400 Body mass index (BMI) [Ratio] 39.8 kg/m2 DO Tirso Ball Work Phone: [facility] 02-23-2024 14:13-0400 Body weight 102.05 kg DO Tirso Ball Work Phone: [facility] 01-31-2024 10:20-0400 Body height 160.02 cm DO Tirso Ball Work Phone: [facility] 01-31-2024 10:20-0400 Body mass index (BMI) [Ratio] 39.8 kg/m2 DO Tirso Ball Work Phone: [facility] 01-31-2024 10:20-0400 Body weight 102.05 kg DO Tirso Ball Work Phone: [facility] 01-03-2024 15:02-0400 Body height 160.02 cm DO Tirso Ball Work Phone: [facility] 01-03-2024 15:02-0400 Body mass index (BMI) [Ratio] 40.2 kg/m2 DO Tirso Ball Work Phone: [facility] 01-03-2024 15:02-0400 Body weight 103.02 kg DO Tirso Ball Work Phone: [facility] 01-03-2024 15:02-0400 Diastolic blood pressure 73 mm[Hg] DO Tirso Ball Work Phone: [facility] 01-03-2024 15:02-0400 Heart rate 96 /min DO Tirso Ball Work Phone: [facility] 01-03-2024 15:02-0400 Systolic blood pressure 116 mm[Hg] DO Tirso Ball Work Phone: [facility] 11-01-2023 13:30-0500 Body height 160.02 cm Tirso Ball Other [facility] [employer] Other 11-01-2023 13:30-0500 Body mass index (BMI) [Ratio] 39.36 kg/m2 Tirso Ball Other [facility] [employer] Other 11-01-2023 13:30-0500 Body weight 100.79 kg Tirso Ball Other [place] [employer] Other 11-01-2023 13:30-0500 Diastolic blood pressure 75 mm[Hg] Tirso Ball Other [place] [employer] Other 11-01-2023 13:30-0500 Respiratory rate 12 /min Tirso Ball Other [place] [employer] Other 11-01-2023 13:30-0500 Systolic blood pressure 112 mm[Hg] Tirso Ball Other [employer] Other 09-12-2023 10:12-0500 Body height 160.02 cm Tirso Ball Other [employer] Other 09-12-2023 10:12-0500 Body mass index (BMI) [Ratio] 39.32 kg/m2 Tirso Ball Other [employer] Other 09-12-2023 10:12-0500 Body weight 100.7 kg Tirso Ball Other [employer] Other 09-12-2023 10:12-0500 Diastolic blood pressure 80 mm[Hg] Tirso Ball Other [employer] Other 09-12-2023 10:12-0500 Systolic blood pressure 129 mm[Hg] Tirso Ball Other [employer] Other 08-04-2023 12:23-0400 Body height 160.02 cm Tirso Ball Other [employer] Other 08-04-2023 12:23-0400 Body mass index (BMI) [Ratio] 39.5 kg/m2 Tirso Ball Other [employer] Other 08-04-2023 12:23-0400 Body weight 101.15 kg Tirso Ball Other [employer] Other 08-04-2023 12:23-0400 Diastolic blood pressure 54 mm[Hg] Tirso Ball Other [employer] Other 08-04-2023 12:23-0400 Systolic blood pressure 98 mm[Hg] Tirso Ball Other [employer] Other 07-15-2023 14:30-0400 Body height 160.02 cm Tirso Ball Other [employer] Other 07-15-2023 14:30-0400 Body mass index (BMI) [Ratio] 40.03 kg/m2 Tirso Ball Other [employer] Other 07-15-2023 14:30-0400 Body weight 102.51 kg Tirso Ball Other [employer] Other 07-15-2023 14:30-0400 Diastolic blood pressure 79 mm[Hg] Tirso Ball Other [employer] Other 07-15-2023 14:30-0400 Respiratory rate 12 /min Tirso Ball Other [employer] Other 07-15-2023 14:30-0400 Systolic blood pressure 116 mm[Hg] Tirso Ball Other [employer] Other 04-13-2023 14:45-0400 Body height 160.02 cm Tirso Ball Other [employer] Other 04-13-2023 14:45-0400 Body mass index (BMI) [Ratio] 42.76 kg/m2 Tirso Ball Other [employer] Other 04-13-2023 14:45-0400 Body weight 109.5 kg Tirso Ball Other [employer] Other 04-13-2023 14:45-0400 Diastolic blood pressure 76 mm[Hg] Tirso Ball Other [employer] Other 04-13-2023 14:45-0400 Respiratory rate 12 /min Tirso Ball Other [employer] Other 04-13-2023 14:45-0400 Systolic blood pressure 118 mm[Hg] Tirso Ball Other [employer] Other 01-11-2023 15:00-0400 Body height 160.02 cm Tirso Ball Other [employer] Other 01-11-2023 15:00-0400 Body mass index (BMI) [Ratio] 45.02 kg/m2 Tirso Ball Other [employer] Other 01-11-2023 15:00-0400 Body weight 115.31 kg Tirso Ball Other [employer] Other 01-11-2023 15:00-0400 Diastolic blood pressure 76 mm[Hg] Tirso Barney Other [employer] Other 01-11-2023 15:00-0400 Respiratory rate 12 /min Tirso Barney Other [employer] Other 01-11-2023 15:00-0400 Systolic blood pressure 122 mm[Hg] Tirso Barney Other [employer] Other 08-19-2022 12:20-0400 Body height 160.02 cm Lloyd Walsh Other [employer] Other 08-19-2022 12:20-0400 Body mass index (BMI) [Ratio] 42.16 kg/m2 Lloyd Walsh Other [employer] Other 08-19-2022 12:20-0400 Body weight 107.96 kg Lloyd Walsh Other [employer] Other 07-13-2022 17:00-0400 Body height 160.02 cm Gerson Ochoa Other [employer] Other 07-13-2022 17:00-0400 Body mass index (BMI) [Ratio] 42.16 kg/m2 Gerson Ochoa Other [employer] Other 07-13-2022 17:00-0400 Body weight 107.96 kg Gerson Ochoa Other [employer] Other Encounters Encounter Date Encounter Type Care Provider Facility Start: 10-30-2024 End: 10-30-2024 ambulatory Tirso Barney DO Work Phone: [facility] Work Phone: Start: 10-30-2024 End: 10-30-2024 Patient encounter procedure Tirso Barney DO Work Phone: [facility] Work Phone: Start: 10-28-2024 Patient encounter procedure Tirso Ball DO Work Phone: [facility] Start: 10-01-2024 End: 10-01-2024 ambulatory Tirso Ball Facility:[facility] Start: 10-01-2024 End: 10-01-2024 Patient encounter procedure Tirso Ball DO Work Phone: [facility] [place] Work Phone: Start: 09-21-2024 End: 09-21-2024 Patient encounter procedure Tirso Ball DO Work Phone: [facility]CT Scan [place] Work Phone: Start: 09-21-2024 End: 09-21-2024 ambulatory Tirso Ector Facility:[facility] Start: 09-11-2024 End: 09-11-2024 Patient encounter procedure Tirso Ball DO Work Phone: [facility] Work Phone: Start: 09-11-2024 End: 09-11-2024 ambulatory Tirso Ball DO Work Phone: [facility] Work Phone: Start: 09-04-2024 Non-patient / Non-visit Benjam in Ball DO [facility] Work [facility] Start: 08-27-2024 End: 08-27-2024 ambulatory DO Tirso Ball Work Phone: [facility] Work Phone: Start: 08-27-2024 End: 08-27-2024 Patient encounter procedure DO Tirso Ball Work Phone: [facility] Work Phone: Start: 08-20-2024 ambulatory Andres Estrella Facility :[facility] Start: 08-20-2024 Registered Recurring DO Benjam in Ball Work Phone: [facility]Physical Therapy [place] Start: 07-17-2024 End: 07-17-2024 Patient encounter procedure DO Tirso Ball Work Phone: [facility] Work Phone: Start: 06-29-2024 End: 06-29-2024 Patient encounter procedure DO Tirso Ball Work Phone: [facility] Work Phone: Start: 06-19-2024 End: 06-19-2024 Patient encounter procedure DO Tirso Ball Work Phone: [facility] Work Phone: Start: 06-12-2024 End: 06-12-2024 ambulatory DO Tirso Ball Work Phone: [facility] Work Phone: Start: 06-12-2024 End: 06-12-2024 Patient encounter procedure DO Tirso Ball Work Phone: [facility] Work Phone: Start: 06-05-2024 End: 06-05-2024 Patient encounter procedure DO Tirso Ball Work Phone: [facility] Work Phone: Start: 06-05-2024 End: 06-05-2024 Patient encounter procedure DO Tirso Ball Work Phone: [facility] Start: 06-05-2024 End: 06-05-2024 ambulatory DO Tirso Ball Work Phone: [facility] Work Phone: Start: 05-23-2024 Non-patient / Non-visit DO Jorge Luis dariela Ball Work Phone: [facility] Work Phone: Start: 05-23-2024 End: 05-23-2024 Admission to same day surgery center DO Tisro Ball Work Phone: [facility]-Surgery [facility] [place] Start: 05-23-2024 End: 05-23-2024 ambulatory Andres Estrella Facility:[facility] Start: 05-17-2024 End: 05-17-2024 Patient encounter procedure DO Tirso Ball Work Phone: [facility] Work Phone: Start: 05-14-2024 End: 05-14-2024 Patient encounter procedure DO Tirso Ball Work Phone: [facility] Work Phone: Start: 05-08-2024 End: 05-08-2024 Patient encounter procedure DO Tirso Ball Work Phone: [facility]-Pre-Surgical Testing Work Phone: Start: 05-08-2024 End: 05-08-2024 ambulatory DO Tirso Ball Work Phone: [facility] Work Phone: Start: 03-28-2024 End: 03-28-2024 Patient encounter procedure DO Tirso Ball Work Phone: [facility]-CT Scan [place] Work Phone: Start: 03-28-2024 End: 03-28-2024 ambulatory DO Tirso Ball Work Phone: [facility] Work Phone: Start: 03-28-2024 Encounter for other preprocedural examination Andres Estrella [facility] Start: 03-27-2024 End: 03-27-2024 Patient encounter procedure DO Tirso Ball Work Phone: [facility] Work Phone: Start: 02-23-2024 End: 02-23-2024 Patient encounter procedure DO Tirso Ball Work Phone: [facility] Work Phone: Start: 02-10-2024 Non-patient / Non-visit DO Jorge Luis lyle Ball Work Phone: [facility] [employer] [facility] [place] Work Phone: Start: 01-31-2024 End: 01-31-2024 Patient encounter procedure DO Tirso Ball Work Phone: [facility] Work Phone: Start: 01-03-2024 End: 01-03-2024 Patient encounter procedure DO Tirso Ball Work Phone: [facility] Work Phone: Start: 11-01-2023 End: 11-01-2023 ambulatory Tirso Ball Other [employer] Other Start: 11-01-2023 Patient encounter procedure Tirso Ball [facility] Start: 10-10-2023 End: 10-10-2023 ambulatory Tirso Ball Other [employer] Other Start: 10-10-2023 Telephone encounter Tirso Ball [facility] Start: 09-12-2023 End: 09-12-2023 ambulatory Tirso Ball Other [employer] Other Start: 09-12-2023 Telephone encounter Tirso Ball [facility] Start: 08-04-2023 End: 08-04-2023 ambulatory Tirso Ball Other [employer] Other Start: 08-04-2023 Telephone encounter Tirso Ball [facility] Start: 07-15-2023 End: 07-15-2023 ambulatory Tirso Ball Other [employer] Other Start: 07-15-2023 Office outpatient vi sit 15 minutes Tirso Ball [facility] Start: 07-12-2023 End: 07-12-2023 ambulatory Tirso Ector Other [employer] Other Start: 07-12-2023 Telephone encounter Tirso Barney [facility] Start: 06-21-2023 End: 06-21-2023 ambulatory Tirso Barney Other [employer] Other Start: 06-21-2023 Telephone encounter Tirso Barney [facility] Start: 06-20-2023 End: 06-20-2023 ambulatory Tirso Barney Other [employer] Other Start: 06-20-2023 Telephone encounter Tirso Barney [facility] Start: 04-13-2023 End: 04-13-2023 ambulatory Tirso Ector Other [employer] Other Start: 04-13-2023 Office outpatient vi sit 15 minutes Tirso Ector [facility] Start: 02-16-2023 End: 02-17-2023 ambulatory SUNNY MENDEZ Facility:[facility] Start: 01-11-2023 End: 01-11-2023 ambulatory Tirso Barney Other [employer] Other Start: 01-11-2023 Office outpatient vi sit 15 minutes Tirso Barney [facility] Start: 01-06-2023 End: 01-07-2023 ambulatory AMBER DOYLE Facility:[facility] Start: 12-12-2022 End: 12-12-2022 ambulatory Tirso Barney Other [employer] Other Start: 12-12-2022 Telephone encounter Tirso Barney ABI [facility] Start: 11-26-2022 End: 11-27-[address] JOANN BECKFORD Facility:[facility] Start: 10-22-2022 End: 10-23-[address] TIRSO BARNEY Facility:[facility] Start: 10-21-2022 End: 10-22-[address] TIRSO BARNEY Facility:[facility] Start: 10-13-[address] [facility] Start: 10-06-2022 End: 10-06-[address] BETH MARVIN . Facility:[facility] Start: 09-27-2022 Adult health examination Misael yessenia Barney Other [employer] Other Start: 08-19-2022 End: 08-19-2022 ambulatory Lloyd Walsh Other [employer] Other Start: 08-19-2022 Office outpatient vi sit 15 minutes Lloyd Walsh [facility] Start: 08-05-2022 End: 08-05-2022 ambulatory Gerson Ochoa Other [employer] Other Start: 08-05-2022 Office outpatient vi sit 15 minutes Gerson Ochoa [facility] [place] Start: 07-26-2022 (Procedure) Short Gerson Ochoa [facility] Start: 07-26-2022 End: 07-26-2022 ambulatory Gerson Ochoa Other [employer] Other Start: 07-15-2022 End: 07-15-2022 ambulatory Gerson Ochoa Other [employer] Other Start: 07-15-2022 Telephone encounter Gerson [facility] Start: 07-13-2022 End: 07-13-2022 ambulatory Gerson Ochoa Other [employer] Other Start: 07-13-2022 Office outpatient ne w 45 minutes Gerson Ochoa [facility] [place] Start: 07-05-2022 End: 07-05-2022 Patient encounter procedure MD Lloyd Walsh Work Phone: [facility]-MRI [address] Start: 05-06-2022 End: 05-07-[address] TIRSO BARNEY Facility:[facility] Start: 03-24-2022 End: 04-22-[address] TIRSO BARNEY Facility:[facility] Start: 03-16-2022 End: 03-17-[address] TIRSO BARNEY Facility:[facility] Start: 10-31-2018 End: 10-31-2018 Patient encounter procedure [facility] Procedures Date Procedure Procedure Detail Performing Clinician Start: 09-21-2024 CT of right shoulder Be njamin Ball DO Work Phone: Start: 09-11-2024 Plain X-ray of right shoulder Tirso Ball DO Work Phone: Start: 08-27-2024 Plain X-ray of right shoulder DO Tirso Ball Work Phone: Start: 06-12-2024 Plain X-ray of right shoulder DO Tirso Ball Work Phone: Start: 06-05-2024 Plain X-ray of right shoulder DO Tirso Ball Work Phone: Start: 05-23-2024 Plain X-ray of right shoulder DO Tirso Ball Work Phone: Start: 05-23-2024 OR Total Shoulder Re verse & Anatomic (Right) DO Tirso Ball Work Phone: Start: 05-23-2024 Plain X-ray of right shoulder DO Tirso Ball Work Phone: Start: 05-08-2024 Methicillin resistan t Staphylococcus aureus culture DO Tirso Ball Work Phone: Start: 03-28-2024 CT of right shoulder DO Tirso Ball Work Phone: Start: 07-05-2022 X-ray of lumbar spin e, six views including bending views MD Lloyd Walsh Work Phone: Start: 07-05-2022 XR pre/post mri xray MD Lloyd Walsh Work Phone: Start: 07-05-2022 MRI of cervical spin e without contrast MD Lloyd Walsh Work Phone: Start: 12-15-2016 Screening mammography B enjamin Ector Other Screening for malign ant neoplasm of breast Tirso Ball Other Plan of Treatment Date Care Activity Detail Author Start: 09-11-2024 Plain X-ray of right shoulder XR shoulder RT min 2V* [facility] Start: 09-11-2024 XR Shoulder - right Views [facility] Start: 05-23-2024 Referral to home hea lt care service [facility] Start: 05-23-2024 Referral to occupati onal therapist [facility] Start: 05-23-2024 End: 05-23-2024 [facility] Start: 05-08-2024 MRSA Culture MRSA Culture [facility] Comprehensive metabo lic 2000 panel - Serum or Plasma [facility] CT Shoulder - right WO contrast [facility] Methicillin resistan t Staphylococcus aureus [Presence] in Unspecified specimen by Organism specific culture [facility] MR Shoulder - right WO contrast [facility] Patient Education Know your Meds [facility] Work Phone: [facility] Immunizations Immunization Date Immunization Notes Care Provider Ericka ahmadi 08-22-2023 COVID-19 (PFIZER) 12Y and older DO Tirso Barney Work Phone: [facility] 07-15-2023 influenza, high dose seasonal, preservative-free Tirso Barney Other [employer] [facility] [employer] Other 07-15-2023 influenza virus vaccine, unspecified formulation DO Tirso Barney Work Phone: [facility] 09-27-2022 Prevnar 20 Tirso Barney Other [facility] 08-13-2022 COVID-19 mRNA Bivale nt Booster (Pfizer) DO Tirso Barney Work Phone: [facility] 09-01-2021 influenza virus vaccine, split virus (incl. purified surface antigen) Tirso Barney Other [employer] [facility] [employer] Other 09-01-2021 influenza virus vaccine, unspecified formulation DO Tirso Barney Work Phone: [facility] 08-19-2021 COVID-19 mRNA, Comirnaty (Pfizer) DO Tirso Barney Work Phone: [facility] 01-24-2021 COVID-19 mRNA-1273 (Moderna) DO Tirso Barney Work Phone: [facility] 12-27-2020 COVID-19 mRNA-4353 (Moderna) DO Tirso Barney Work Phone: [facility] 07-01-2020 influenza virus vaccine, split virus (incl. purified surface antigen) Tirso Barney Other [employer] Other 07-01-2020 influenza virus vaccine, unspecified formulation DO [employer] Work Phone: [facility] 08-05-2018 influenza virus vaccine, split virus (incl. purified surface antigen) Tirso [employer] Other [facility] [employer] Other 08-05-2018 influenza virus vaccine, unspecified formulation DO [employer] Work Phone: [facility] pneumococcal Conjuga te, unspecified formulation; Translations: [Need for prophylactic vaccination against Streptococcus pneumoniae (pneumococcus)] Tirso Barney Other [facility] [employer] Other Payers Date Payer Category Payer Self-pay 1958 Medicare [id number] 2.1 [id number] 1958 Unknown [id number] [id number] 1955 Unknown [id number] 2.16.84 0.1.801613.3.579.2.593 1956 Unknown [id number] 2.16.84 0.1.285293.3.579.2.593 1956 Unknown [id number] 2.16.84 0.1.292385.3.579.2.593 1956 Unknown [id number] 2.16.84 0.1.968612.3.579.2.593 1956 Unknown [id number] 2.16.84 0.1.019380.3.579.2.593 1956 Unknown [id number] 2.16.84 0.1.397493.3.579.2.593 1956 Unknown [id number] 2.16.84 0.1.409355.3.579.2.593 1956 Unknown [id number] 2.16.84 0.1.845318.3.579.2.593 1956 Unknown [id number] 2.16.84 0.1.829792.3.579.2.593 1955 Unknown [id number] 2.16.84 0.1.653002.3.579.2.593 Medicare Medicare [id number] Unknown [id number] 2.16.8 40.1.599615.3.579.2.531 Unknown [id number] 2.16.8 40.1.619082.3.579.2.531 Unknown [id number] 2.16.8 40.1.367354.3.579.2.531 Unknown [id number] 2.16.8 40.1.560747.3.579.2.531 Unknown [id number] 2.16.8 40.1.505740.3.579.2.531 Unknown [id number] 2.16.8 40.1.167199.3.579.2.531 Unknown [id number] 2.16.8 40.1.948526.3.579.2.531 Unknown [id number] 2.16.8 40.1.747744.3.579.2.531 Unknown [id number] 2.16.8 40.1.465708.3.579.2.531 Unknown [id number] 2.16.8 40.1.763308.3.579.2.531 Social History Date Type Detail Facility Tobacco smoking status [facility] Unknown if ever smoked [facility] Work Phone: Start: 1955 Sex Assigned At Female F [facility] Sex Assigned At Sex Assigned At Bir th [place] [employer] Other Start: 05-08-2024 End: 05-23-2024 Tobacco smoking status NHIS Never smoked tobacco (finding) [facility] Start: 09-11-2024 End: 10-30-2024 Sex Female (finding) [facility] Medical Equipment Procedure Code Equipment Code Equipment Origin al Text Equipment Identifier Dates SHOULDER CAP RSA -PERF REV LAT FDA Start: 05-23-2024 Reverse shoulder prosthesis base plate ()[id number] FDA Start: 05-23-2024 Orthopaedic bone screw, non-bioabsorbable, non-sterile ()[id number] FDA Start: 05-23-2024 Orthopaedic bone screw, non-bioabsorbable, non-sterile ()[id number] FDA Start: 05-23-2024 Orthopaedic bone screw, non-bioabsorbable, non-sterile ()[id number] FDA Start: 05-23-2024 Orthopaedic bone screw, non-bioabsorbable, non-sterile ()[id number] FDA Start: 05-23-2024 Polyethylene rev erse shoulder prosthesis cup ()[id number] FDA Start: 05-23-2024 Coated shoulder humeral stem prosthesis ()[id number] FDA Start: 05-23-2024 Reverse shoulder prosthesis head ()[id number] FDA Start: 05-23-2024 SHOULDER CAP RSA -PERF REV LAT FDA Start: 05-23-2024 SHOULDER CAP RSA -PERF REV LAT FDA Start: 05-23-2024 SHOULDER CAP RSA -PERF REV LAT FDA Start: 05-23-2024 SHOULDER CAP RSA -PERF REV LAT FDA Start: 05-23-2024 SHOULDER CAP RSA -PERF REV LAT FDA Start: 05-23-2024 Goals Date Patient Goal Desired Activity /State Clinical Notes 07-13-2022 to 05-23-2024 Note Date & Type Note Facility 05-23-2024 Evaluation note Diagnosis Onset Date Resolution Status post reverse arthroplasty of right shoulder May 23, 2024 acute June 19, 2024 12:27pm Traumatic tear of right rotator cuff acute June 19, 2024 12:27pm Gastroesophageal reflux disease with esophagitis without hemorrhage acute June 29, 2024 1:10pm Hypertension acute June 1:10pm Lumbar spondylosis acute Sept2023 1:10pm Major depression acute Junemb r 2023 1:10pm Obesity acute June 29, 2024 1:10pm Opiate analgesic use agreement exists acute June 29, 2024 1:10pm Status post reverse arthroplasty of right shoulder May 23, 2024 acute June 29, 2024 1:10pm Status post reverse arthroplasty of right shoulder May 23, 2024 acute July 17, 2024 12:47pm Traumatic tear of right rotator cuff acute June 12:47pm Status post reverse arthroplasty of right shoulder May 23, 2024 acute August 27, 2024 2:30pm Traumatic tear of right rotator cuff acute August 27, 2024 2:30pm Status post reverse arthroplasty of right shoulder May 23, 2024 acute September 11, 2024 12:12pm Traumatic tear of right rotator cuff acute August 12:12pm [facility] Work Phone: 1(217) 943-553507-31-2024 Evaluation note* Diagnosis Onset Date Resolution Status Admit Date Status post reverse arthropl asty of right shoulder May 23, 2024 acute August 27, 2024 2:30pm Traumatic tear of right rota tor cuff acute August 27 2:30pm Status post reverse arthropl asty of right shoulder May 23, 2024 acute September 11, 2024 12:12pm Traumatic tear of right rota tor cuff acute September 11, 2 12:12pm Status post reverse arthropl asty of right shoulder May 23, 2024 acute October 01, 2024 1:42pm Traumatic tear of right rota tor cuff acute October 01 1:42pm Gastroesophageal reflux dise ase with esophagitis without hemorrhage acute October 30 1:16pm Hypercholesterolemia acute Mario2024 1:16pm Hypertension acute October 30, 2024 1:16pm Lumbar spondylosis acute 2024 1:16pm Major depression acute October 30, 2024 1:16pm Medicare annual wellness vis it, subsequent acute October 30 1:16pm Obesity acute October 30 025 1:16pm Opiate analgesic use agreeme nt exists acute October 30 1:16pm Screening mammogram for [facility] cancer acute October 30 1:16pm Status post reverse arthropl asty of right shoulder May 23, 2024 acute October 30 025 1:16pm [facility] Work Phone: 1(776) 879-740301-09-2024 Evaluation note* Encounter Date Diagnosis Assessment Notes Treatment Notes Treatment Clinical Notes Oct, Primary hypertension (ICD-10 - I10) This patient is instructed to consume a healthy, low-fat, low-salt diet. They are also encouraged to continue exercise to achieve/maintain a normal BMI. Oct, Lumbar spondylosis (ICD-10 [...] patient on monthly SBE and yearly mammograms. [facility] Other 12-18-2023 Evaluation note* Encounter Date Diagnosis Assessment Notes Treatment Notes Treatment Clinical Notes Sep, Lumbar spondylosis (ICD-10 - M47.816) [facility] Other 11-20-2023 Evaluation note* Encounter Date Diagnosis Assessment Notes Treatment Notes Treatment Clinical Notes Aug, Morbid (severe) obesity due to excess calories (ICD-10 - E66.01) [facility] Other 10-12-2023 Evaluation note* Encounter Date Diagnosis Assessment Notes Treatment Notes Treatment Clinical Notes Jul, Morbid (severe) obesity due to excess calories (ICD-10 - E66.01) [facility] Other 09-22-2023 Evaluation note* Encounter Date Diagnosis [...] 30. Continue calorie/portion restriction, exercise and Adipex [facility] Other 09-19-2023 Evaluation note* Encounter Date Diagnosis Assessment Notes Treatment Notes Treatment Clinical Notes Jun, Lumbar spondylosis (ICD-10 - M47.816) [facility] Other 08-29-2023 Evaluation note* Encounter Date Diagnosis Assessment Notes Treatment Notes Treatment Clinical Notes May, Morbid (severe) obesity due to excess calories (ICD-10 - E66.01) [facility] Other 08-28-2023 Evaluation note* Encounter Date Diagnosis Assessment Notes Treatment Notes Treatment Clinical Notes May, Morbid (severe) obesity due to excess calories (ICD-10 - E66.01) [facility] Other 06-21-2023 Evaluation note* Encounter Date Diagnosis [...] index [BMI] 40.0-44.9, adult (ICD-10 - Z68.41) [facility] Other 04-27-2023 NotePROCEDURE: XR FOOT RT MIN [...] Electronically authenticated by: MAURILIO MENDEZ Date: 2023-02-17 07:42[facility]03-21-2023 Evaluation note* Encounter Date Diagnosis Assessment [...] G57.11) Avoid tight clothing. Decrease weight Reassure [facility] Other 03-17-2023 NotePROCEDURE: XR FOOT RT MIN [...] Electronically authenticated by: JOANN BECKFORD Date: 2023-01-07 14:50[id number] Evaluation note* Encounter Date Diagnosis Assessment Notes Treatment Notes Treatment Clinical Notes Nov, Lumbar spondylosis (ICD-10 - M47.816) [facility] Other 02-03-2023 NotePROCEDURE: XR FOOT RT MIN [...] Electronically authenticated by: JOANN BECKFORD Date: 2022-11-26 12:56[facility] [id number] Evaluation note* Encounter Date Diagnosis Assessment Notes [...] Jul, Lumbar radiculopathy, right (ICD-10 - M54.16) [facility] Other 10-13-2022 Evaluation note* Encounter Date Diagnosis [...] note writ ten by Akshat Yoon MA, Ignition Mechanic. Edited and approved by Dr. Gerson Ochoa MD. [facility] Other 09-20-2022 Evaluation note* Encounter Date Diagnosis [...] note writ ten by Akshat Yoon MA, Ignition Mechanic. Edited and approved by Dr. Gerson Ochoa [...] negative findings were considered in medical decision-making. [facility] [employer] Other Evaluation noteNo assessment information available [facility] Work Phone: Evaluation noteNo InformationNort[facility] [employer] Other Evaluation note* Diagnosis Onset Date Resolution Status Rotator cuff strain noneacti ve Shoulder pain, right noneact ny Contusion of right shoulder noneactive Traumatic tear of right rotator cuff acute Traumatic tear of right rotator cuff acute Pre-op exam noneactive Gastroesophageal reflux dise ase with esophagitis without hemorrhage acute Hypertension acute Lumbar spondylosis acute Major depression acute Obesity acute Opiate analgesic use agreement exists acute Traumatic tear of right rotator cuff acute [facility] Work Phone: Evaluation note* Diagnosis Onset Date Resolution Status Traumatic tear of right rotator cuff acute Pre-op exam noneactive Gastroesophageal reflux dise ase with esophagitis without hemorrhage acute Hypertension acute Lumbar spondylosis acute Major depression acute Obesity acute Opiate analgesic use agreement exists acute Traumatic tear of right rotator cuff acute [facility] Work Phone: Evaluation note* Diagnosis Onset Date Resolution Status Gastroesophageal reflux dise ase with esophagitis without hemorrhage acute Hypertension acute Lumbar spondylosis acute Major depression acute Obesity acute Opiate analgesic use agreement exists acute Traumatic tear of right rotator cuff acute Age-related osteoporosis wit hout current pathological fracture acute Arthritis of right glenohumeral joint acute Hypertension acute Major depression acute Traumatic tear of right rotator cuff acute Preop exam for internal medicine noneactive Traumatic tear of right rotator cuff acute Pre-op exam noneactive Status post reverse arthroplasty of right shoulder acute Traumatic tear of right rotator cuff acute [facility] Work Phone: Evaluation note* Diagnosis Onset Date Resolution Status Gastroesophageal reflux dise ase with esophagitis without hemorrhage acute Hypertension acute Lumbar spondylosis acute Major depression acute Obesity acute Opiate analgesic use agreement exists acute Traumatic tear of right rotator cuff acute Age-related osteoporosis wit hout current pathological fracture acute Arthritis of right glenohumeral joint acute Hypertension acute Major depression acute Traumatic tear of right rotator cuff acute Preop exam for internal medicine noneactive Traumatic tear of right rotator cuff acute Pre-op exam noneactive Status post reverse arthroplasty of right shoulder acute Traumatic tear of right rotator cuff acute Status post reverse arthroplasty of right shoulder acute Traumatic tear of right rotator cuff acute [facility] Work Phone: Evaluation note* Diagnosis Onset Date Resolution Status Status post reverse arthroplasty of right shoulder 202 4 acute Traumatic tear of right rotator cuff acute Status post reverse arthroplasty of right shoulder 202 4 acute Traumatic tear of right rotator cuff acute Status post reverse arthroplasty of right shoulder 202 4 acute Traumatic tear of right rotator cuff acute Gastroesophageal reflux dise ase with esophagitis without hemorrhage acute Hypertension acute Lumbar spondylosis acute Major depression acute Obesity acute Opiate analgesic use agreement exists acute Status post reverse arthroplasty of right shoulder 202 4 acute Status post reverse arthroplasty of right shoulder 202 4 acute Traumatic tear of right rotator cuff acute Status post reverse arthroplasty of right shoulder 202 4 acute Traumatic tear of right rotator cuff acute [facility] Work Phone: History general Narrative - Reported* Type Description Date Medical History Arthritis Medical History gall bladder disease Medical History hypertension Medical History obesity Medical History chronic depression Medical History anxiety Surgical History gastric bypass Surgical History gallbladder Hospitalization History see surgical hx [facility] Other History general Narrative - Reported* Type [...] SURGERY 2004 Hospitalization History see surgical hx [facility] Other Summary Purpose Family History Relationship Condition Age at Onset Recorded Date/T heidy father Heart disease Unknown Malignant neoplasm Unknown Unknown Not Specified Unknown Relationship Condition Age at Onset Recorded Date/T heidy father Heart disease Unknown Unknown Malignant neoplasm of colon Unknown mother Unknown Alzheimer's dementia Unknown Advance Directives Advance Directive Response Recorded Date/ Time Advance Directives No June 22, 2022 4:05pm Advance Directive Response Recorded Date/ Time Advance Directives No June 22, 2022 3:05pm Chief Complaint and Reason for Visit Chief Complaint G95.9 Chief Complaint 1 month follow up CONSULT DR BARNEY Amb Documentation OP SP RT SHOULDER PAIN 3 Month Check Up z01.818 S46.011A Reason for Visit Rotator cuff strain Shoulder pain, right Contusion of right shoulder Traumatic tear of right rotator cuff Traumatic tear of right rotator cuff Pre-op exam Gastroesophageal reflux disease with esophagitis without hemorrhage Hypertension Lumbar spondylosis Major depression Obesity Opiate analgesic use agreement exists Traumatic tear of right rotator cuff Chief Complaint Amb Documentation OP SP RT SHOULDER PAIN 3 Month Check Up z01.818 S46.011A Shoulder pain Reason for Visit Traumatic tear of ri ght rotator cuff Pre-op exam Gastroesophageal reflux disease with esophagitis without hemorrhage Hypertension Lumbar spondylosis Major depression Obesity Opiate analgesic use agreement exists Traumatic tear of right rotator cuff Chief Complaint 3 Month Check Up z01.818 S46.011A Shoulder pain pre op clearance H & P RIGHT REVERSE TOTAL SHOULDER ARTHROPLASTY Shoulder pain Shoulder pain Z96.611 - Presence of right artificial shoulder olivia 10-14 days post op Reason for Visit Gastroesophageal ref lux disease with esophagitis without hemorrhage Hypertension Lumbar spondylosis Major depression Obesity Opiate analgesic use agreement exists Traumatic tear of right rotator cuff Age-related osteoporosis without current pathological fracture Arthritis of right glenohumeral joint Hypertension Major depression Traumatic tear of right rotator cuff Preop exam for internal medicine Traumatic tear of right rotator cuff Pre-op exam Status post reverse arthroplasty of right shoulder Traumatic tear of right rotator cuff Chief Complaint 3 Month Check Up z01.818 S46.011A Shoulder pain pre op clearance H & P RIGHT REVERSE TOTAL SHOULDER ARTHROPLASTY Shoulder pain Shoulder pain Z96.611 - Presence of right artificial shoulder olivia 10-14 days post op INCREASED RT SHOULDER PAIN Z96.611 - Presence of right artificial shoulder olivia Reason for Visit Gastroesophageal ref lux disease with esophagitis without hemorrhage Hypertension Lumbar spondylosis Major depression Obesity Opiate analgesic use agreement exists Traumatic tear of right rotator cuff Age-related osteoporosis without current pathological fracture Arthritis of right glenohumeral joint Hypertension Major depression Traumatic tear of right rotator cuff Preop exam for internal medicine Traumatic tear of right rotator cuff Pre-op exam Status post reverse arthroplasty of right shoulder Traumatic tear of right rotator cuff Status post reverse arthroplasty of right shoulder Traumatic tear of right rotator cuff Chief Complaint Z96.611 - Presence o f right artificial shoulder olivia 10-14 days post op INCREASED RT SHOULDER PAIN Z96.611 - Presence of right artificial shoulder olivia 1 WEEK 3 month follow up 1 MONTH R Reverse Total Shoulder 05/23 6 WEEKS Z96.611 - Presence of right artificial shoulder olivia Reason for Visit Status post reverse arthroplasty of right shoulder Traumatic tear of right rotator cuff Status post reverse arthroplasty of right shoulder Traumatic tear of right rotator cuff Status post reverse arthroplasty of right shoulder Traumatic tear of right rotator cuff Gastroesophageal reflux disease with esophagitis without hemorrhage Hypertension Lumbar spondylosis Major depression Obesity Opiate analgesic use agreement exists 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 Traumatic tear of right rotator cuff Status post reverse arthroplasty of right shoulder Traumatic tear of right rotator cuff Chief Complaint Admit Date 1 WEEK June 19, 2024 12 :27pm 3 month follow up June 29, 2024 1:10pm 1 MONTH July 17, 2024 12:47pm R Reverse Total Shoulder 05/23August 202023 2:15pm 6 WEEKS August 27, 2024 2 :30pm Z96.611 - Presence of right artificial s [place] olivia August 27, 2024 2:34pm Z96.611 - Presence of right artificial s [place] olivia September 11, 2024 11:37am INCREASED RT SHOULDER PAIN AFTER FALL No vember 2023 12:12pm Reason for Visit Admit Date Status post reverse arthroplasty of righ t shoulder June 19, 2024 12:27pm Traumatic tear of right rotator cuff Aug ust 2023 12:27pm Gastroesophageal reflux dise ase with esophagitis without hemorrhage June 29, 2024 1:10pm Hypertension June 29, 2024 1:10pm Lumbar spondylosis June 29, 2024 1:10pm Major depression June 29, 2024 1:10pm Obesity June 29, 2024 1:10pm Opiate analgesic use agreement exists Se pt2023 1:10pm Status post reverse arthroplasty of righ t shoulder June 29, 2024 1:10pm Status post reverse arthroplasty of righ t shoulder July 17, 2024 12:47pm [facility] Status post reverse arthroplasty of righ t shoulder August 27, 2024 2:30pm Traumatic tear of right rotator cuff Aug [facility]2023 2:30pm Status post reverse arthroplasty of righ t shoulder September 11, 2024 12:12pm Traumatic tear of right rotator cuff Nov [facility]2023 12:12pm Chief Complaint Admit Date R Reverse Total Shoulder 05/23August 202023 2:15pm 6 WEEKS August 27, 2024 2 :30pm Z96.611 - Presence of right artificial s [place] olivia August 27, 2024 2:34pm Z96.611 - Presence of right artificial s [place] olivia September 11, 2024 11:37am INCREASED RT SHOULDER PAIN AFTER FALL No vember 2023 12:12pm z96.611 s49.91xa September 21, 2024 12:25pm CT RESULTS October 01, 2024 1 :42pm Z96.611 S46.011D October 01, 2024 2 :36pm 4 month f/u October 30, 2024 1: 16pm Reason for Visit Admit Date Status post reverse arthroplasty of righ t shoulder August 27, 2024 2:30pm Traumatic tear of right rotator cuff Aug 2:30pm Status post reverse arthroplasty of righ t shoulder September 11, 2024 12:12pm Traumatic tear of right rotator cuff Aug 12:12pm Status post reverse arthroplasty of righ t shoulder October 01, 2024 1:42pm Traumatic tear of right rotator cuff Dec 2023 1:42pm Gastroesophageal reflux dise ase with esophagitis without hemorrhage October 30, 2024 1:16pm Hypercholesterolemia October 30, 2024 1 :16pm Hypertension October 30, 2024 1: 16pm Lumbar spondylosis October 30, 2024 1: 16pm Major depression October 30, 2024 1: 16pm Medicare annual wellness visit, subseque nt October 30, 2024 1:16pm Obesity October 30, 2024 1: 16pm Opiate analgesic use agreement exists [facility] 2024 1:16pm Screening mammogram for breast cancer [facility] 2024 1:16pm Status post reverse arthroplasty of righ t shoulder October 30, 2024 1:16pm Additional Source Comments INFORMATION SOURCE (unrecogn ized section and content) DATE CREATED AUTHOR 11/01/2018 [facility] DATE CREATED AUTHOR AUTHOR'S ORGANIZ ATION [facility] DATE CREATED AUTHOR AUTHOR'S ORGANIZ ATION 10/04/2024 [facility] [employer] [employer] Care Teams (unrecognized sec tion and content) Team Status: Active Member Role Status Dates Tirso Barney DO Primary Care Provider Active Team Status: Active Member Role Status Dates Tirso Barney DO Primary Care Provider Active Start: August 20, 2024 Andres Estrella DO Attending Provider Active St art: August 20, 2024 Team Status: Inactive Member Role Status Dates Tirso Barney DO Primary Care Provider Active Start: August 27, 2024 End: August 27, 2024 Andres Estrella DO Attending Provider Active St art: August 27, 2024 End: August 27, 2024 Team Status: Active Member Role Status Dates Tirso Barney DO Primary Care Provide r, Attending Provider Active Start: September 04, 2024 Team Status: Inactive Member Role Status Dates Tirso Barney DO Primary Care Provider Active Start: September 11, 2024 End: September 11, 2024 Andres Estrella DO Attending Provider Active St art: September 11, 2024 End: September 11, 2024 Team Status: Inactive Member Role Status Dates Tirso Barney DO Primary Care Provider Active Start: September 21, 2024 End: September 21, 2024 Andres Estrella , DO Attending Provider Active St art: September 21, 2024 End: September 21, 2024 Team Status: Inactive Member Role Status Dates Tirso Barney DO Primary Care Provider Active Start: October 01, 2024 End: October 01, 2024 Andres Estrella , DO Attending Provider Active St art: October 01, 2024 End: October 01, 2024 Team Status: Inactive Member Role Status Dates Tirso Barney DO Primary Care Provide r, Attending Provider Active Start: October 30, 2024 End: October 30, 2024 Team Status: Active Member Role Status Dates Tirso Barney DO Primary Care Provider Active Team Status: Inactive Member Role Status Dates Tirso Barney DO Primary Care Provide r, Attending Provider Active Start: March 27, 2024 End: March 27, 2024 Team Status: Inactive Member Role Status Dates Tirso Barney DO Primary Care Provider Active Start: March 28, 2024 End: March 28, 2024 Andres Estrella DO Attending Provider Active St art: March 28, 2024 End: March 28, 2024 Team Status: Inactive Member Role Status Dates Tirso Barney DO Primary Care Provider Active Start: May 08, 2024 End: May 08, 2024 Andres Estrella , DO Attending Provider Active St art: May 08, 2024 End: May 08, 2024 Team Status: Inactive Member Role Status Dates Tirso Barney DO Primary Care Provide r, Attending Provider Active Start: May 14, 2024 End: May 14, 2024 Team Status: Inactive Member Role Status Dates Tirso Barney DO Primary Care Provider Active Start: May 17, 2024 End: May 17, 2024 Andres Estrella , DO Attending Provider Active St art: May 17, 2024 End: May 17, 2024 Team Status: Inactive Member Role Status Dates Tirso Barney DO Primary Care Provider Active Start: May 23, 2024 End: May 23, 2024 nAdres Estrella DO Attending Provider Active St art: May 23, 2024 End: May 23, 2024 Team Status: Active Member Role Status Dates Tirso Barney DO Primary Care Provider Active Start: May 23, 2024 Andres A Delores , DO Attending Provider, Other Provider Active Start: May 23, 2024 Team Status: Inactive Member Role Status Dates Tirso Barney DO Primary Care Provider Active Start: June 05, 2024 End: June 05, 2024 Andres Estrella , DO Attending Provider Active St art: June 05, 2024 End: June 05, 2024 Team Status: Active Member Role Status Dates Tirso Barney DO Primary Care Provider Active Start: February 10, 2024 JIM Adkins Attending Provider Active Start : February 10, 2024 Team Status: Inactive Member Role Status Dates Tirso Barney DO Primary Care Provider Active Start: February 23, 2024 End: February 23, 2024 Andres Estrella , DO Attending Provider Active St art: February 23, 2024 End: February 23, 2024 Team Status: Inactive Member Role Status Dates Lloyd Walsh MD Attending Provider Active Tirso Barney DO Primary Care Provider Active Team Status: Inactive Member Role Status Dates Tirso Barney DO Primary Care Provide r, Attending Provider Active Start: January 03, 2024 End: January 03, 2024 Team Status: Inactive Member Role Status Dates Tirso Barney DO Primary Care Provider Active Start: January 31, 2024 End: January 31, 2024 Andres Estrella , DO Attending Provider Active St art: January 31, 2024 End: January 31, 2024 Team Status: Inactive Member Role Status Dates Tirso Barney DO Primary Care Provider Active Start: June 12, 2024 End: June 12, 2024 Andres Estrella DO Attending Provider Active St art: June 12, 2024 End: June 12, 2024 Team Status: Inactive Member Role Status Dates Tirso Barney DO Primary Care Provider Active Start: June 19, 2024 End: June 19, 2024 Andres Estrella DO Attending Provider Active St art: June 19, 2024 End: June 19, 2024 Team Status: Inactive Member Role Status Dates Tirso Barney DO Primary Care Provide r, Attending Provider Active Start: June 29, 2024 End: June 29, 2024 Team Status: Inactive Member Role Status Dates Tirso Barney DO Primary Care Provider Active Start: July 17, 2024 End: July 17, 2024 Andres Estrella , DO Attending Provider Active St art: July 17, 2024 End: July 17, 2024 Team Status: Active Member Role Status Dates Tirso Barney DO Primary Care Provider Active Start: August 20, 2024 Andres Estrella , DO Attending Provider Active St art: August 20, 2024 Team Status: Inactive Member Role Status Dates Tirso Barney DO Primary Care Provider Active Start: August 27, 2024 End: August 27, 2024 Andres Estrella DO Attending Provider Active St art: August 27, 2024 End: August 27, 2024 Team Status: Active Member Role Status Dates Tirso Barney DO Primary Care Provide r, Attending Provider Active Start: September 04, 2024 Team Status: Active Member Role Status Dates Tirso Barney DO Primary Care Provider Active Start: September 11, 2024 Andres Estrella , DO Attending Provider Active St art: September 11, 2024 Team Status: Inactive Member Role Status Dates Tirso Barney DO Primary Care Provider Active Start: September 11, 2024 End: September 11, 2024 Andres Estrella DO Attending Provider Active St art: September 11, 2024 End: September 11, 2024 Team Status: Inactive Member Role Status Dates Tirso Barney DO Primary Care Provider Active Start: September 21, 2024 End: September 21, 2024 Andres Estrella DO Attending Provider Active St art: September 21, 2024 End: September 21, 2024 Team Status: Inactive Member Role Status Dates Tirso Barney DO Primary Care Provider Active Start: October 01, 2024 End: October 01, 2024 Andres Estrella DO Attending Provider Active St art: October 01, 2024 End: October 01, 2024 Team Status: Inactive Member Role Status Dates Tirso Barney DO Primary Care Provide r, Attending Provider Active Start: October 30, 2024 End: October 30, 2024 Goals (unrecognized section and content) Goals may be documented in a n alternate sectionNo InformationNo InformationNo InformationNo InformationNo InformationNo InformationNo InformationNo InformationNo InformationNo InformationNo InformationNo InformationNo InformationNo InformationNo InformationNo InformationNo InformationNo InformationGoals may be documented in an alternate sectionGoals may be documented in an alternate sectionGoals may be documented in an alternate sectionGoals may be documented in an alternate sectionGoals may be documented in an alternate sectionGoals may be documented in an alternate section REASON FOR VISIT (unrecogniz ed section and [...] BE BASED ON THE PRIMARY CLINICAL RECORDS. [facility] [facility]. provides no warranty or guarantee of the accuracy or completeness of information in this document.
[2024-11-05 11:03] LABS: Basophils Absolute Auto 0.1 10^3/uL (0.0-0.1); Basophils Percent Auto 1.3 % (0.2-2.0); Eosinophils Absolute Auto 0.2 10^3/uL (0.0-0.7); Hematocrit 40.1 % (36.0-48.0); Immature Granulocytes Abs Auto 0.02 10^3/uL (0.00-0.03); Immature Granulocytes Pct Auto 0.3 % (0.0-0.5); Lymphocytes Absolute Auto 1.5 10^3/uL (1.2-3.8); Mean Corpuscular HGB Conc 32.4 g/dL (29.9-35.2); Mean Corpuscular Hemoglobin 31.8 pg (26.7-34.0); Mean Platelet Volume 9.4 fL (9.5-13.5); Monocytes Absolute Auto 0.5 10^3/uL (0.3-0.8); Monocytes Percent Auto 7.2 % (1.7-12.0); Neutrophils Absolute Auto 4.4 10^3/uL (1.4-6.5); Neutrophils Percent Auto 65.2 % (43.0-75.0); Platelet Count 314 10^3/uL (150-450); Red Blood Count 4.09 10^6/uL (4.20-5.40); Red Cell Distribution Width 13.3 % (11.0-15.0); White Blood Count 6.7 10^3/uL (4.0-11.0)
[2024-11-05 11:10] LABS: Erythrocyte Sedimentation Rate 15 mm/hr (<=30)
[2024-11-05 12:04] LABS: Alanine Aminotransferase 30 U/L (14-59); Albumin Globulin Ratio 1.2; Albumin Level 3.9 g/dL (3.4-5.0); Alkaline Phosphatase 74 U/L (46-116); Anion Gap 13.5; Aspartate Amino Transferase 14 U/L (15-37); BUN Creatinine Ratio 19.8; Bilirubin Total 0.3 mg/dL (0.2-1.0); C Reactive Protein <0.50 mg/dL (<=0.50); Calcium 8.9 mg/dL (8.5-10.1); Carbon Dioxide 26.8 mmol/L (21.0-32.0); Chloride 104 mmol/L (98-107); Chol HDL Ratio 3.2; Cholesterol 181 mg/dL (<=200); Estimated GFR (African America >60 (>=60 mL/min/1.73m^2); Estimated GFR (Non-African Ame >60 (>=60 mL/min/1.73m^2); Globulin 3.2 g/dL; Glucose 114 mg/dL (74-106); HDL Cholesterol 57 mg/dL (40-60); Potassium 4.3 mmol/L (3.5-5.1); Sodium 140 mmol/L (136-145); Thyroid Stimulating Hormone 1.786 uIU/mL (0.358-3.740); Total Protein 7.1 g/dL (6.4-8.2); Triglycerides 278 mg/dL (<=150); VLDL CHOLESTEROL 55.6 mg/dL
== END 2024-11-05 09:57 | disposition home or self-care (01) ==
LOC: LAB 09:59
PROVIDERS: PCP Internal Medicine; Visit Provider Internal Medicine
DX: E78.00 Pure hypercholesterolemia, unspecified (principal); I10 Essential (primary) hypertension; M35.01 Sjogren syndrome with keratoconjunctivitis; R53.83 Other fatigue
CPT/HCPCS: 36415; 80053; 80061; 84443; 85025; 85652; 86140

== ENCOUNTER 2025-03-13 16:48 | Emergency (ER) | payer MEDICARE, OTHER, SELFPAY ==
--- OUTSIDE RECORDS SUMMARY | 2025-03-13 16:55 | XMS_ITS | Clinical Summary ---
Author Organization [facility] Address [address] [place] [address] Care Team Providers Care Residential Pest Control Technician Name Role Phone Unavailable Primary Care Provider Unavailabl e Social History Tobacco Use Types Packs/Day Years Used Date Smoking Tobacco: Never Assessed Area Deprivation Index Answer Date Pardeep rded National Score (1-100), lower number is lower ri sk Not on file 10/02/2020 State Score (1-10), lower number is lower risk N ot on file 10/02/2020 Data from: https://www.neighborhoodatlas.medicine.[facility].edu/. Last address used for calculation Not on file 10/02/2020 Comments Unknown Sex and Gender Information Value Date Recorded Sex Assigned at Not on file Legal Sex Female 4:21 PM EDT Gender Identity Not on file Sexual Orientation Not on file Plan of Treatment Not on file
--- OUTSIDE RECORDS SUMMARY | 2025-03-13 16:55 | XMS_ITS | Clinical Summary ---
Author Organization [facility] Address [address] [place] [address] Care Team Providers Care Skein Washer Name Role Phone Unavailable Primary Care Provider Unavailabl e Social History Tobacco Use Types Packs/Day Years Used Date Smoking Tobacco: Never Assessed Comments Unknown Sex and Gender Information Value Date Recorded Sex Assigned at Not on file Legal Sex Female 10:48 AM EDT Gender Identity Not on file Sexual Orientation Not on file Plan of Treatment Not on file Insurance [facility]
--- OUTSIDE RECORDS SUMMARY | 2025-03-13 16:55 | XMS_ITS | Patient Health Record ---
Author Organization [facility] [place] Address [address] [place] [address] Care Team Providers Care Brass Finisher Name Role Phone Tirso Barney DO Primary Care Provider Unavaila ble Allergies Allergen (clinical drug ingredient) Drug/Non Drug Allergy documented on EMR Reaction Allergy Type Onset Date Status lisinopril Lisinopril cough Drug Allergy Activ e Reason For Referral No Information Medications Medication SIG (Take, Route, Frequency, Duration) Notes Start Date End Date Status Dialyvite Vitamin D3 Max 1.25 MG (10459 UT) 1 tablet Orally for 30 day(s) Active Lisinopril-hydroCHLOROthia zide 10-12.5 MG 1 tablet Orally Once a day for 30 day(s) Active Ferrex 150 150 MG 1 capsule Orally Onc e a day for 30 day(s) Active Ibuprofen 200 MG 1 capsule with food or milk as needed Orally Three times a day Active traMADol HCl 50 MG 1 tablet as needed O rally Once a day Active Social History Tobacco Use: Social History Observation Description Date Details (start date - stop date) Never Smoker NA - NA Tobacco Use/Smoking Question Answer Notes Patient is a nonsmoker Section Notes: Never Smoked Never Smoked Never Smoked Never Smoked Never Smoked Never Smoked Never Smoked Problems Problem Type SNOMED Code ICD Code Onset Dates Problem Status W/U Status Risk Notes Problem 34241020 Essential (prima ry) hypertension (I10) Active confirmed Problem 9677796240775581 Primary osteoarthritis, right shoulder (M19.011) Active confirmed Problem 13623307 Vitamin D defici ency, unspecified (E55.9) Active confirmed Problem 91102126 Iron deficiency (E61.1) Active confirmed Problem 6052595 Primary insomnia (F51.01) Active confirmed Problem 442658909571837 Primary osteoarthritis, left shoulder (M19.012) Active confirmed Problem 7158759544397240 Post-traumatic osteoarthritis, 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) Active confirmed Problem 030035671 Spondylosis with out myelopathy or radiculopathy, lumbar region (M47.816) Active confirmed Problem 141833206299540 Lumbago with sci atica, right side (M54.41) Active confirmed Problem 914760589 Lumbago with sci atica, left side (M54.42) Active confirmed Problem 57992877966132413 Strain of musc le(s) and tendon(s) of the rotator cuff of left shoulder, initial encounter (S46.012A) Active confirmed Problem 791150094 Strain of muscle , fascia and tendon of other parts of biceps, left arm, initial encounter (S46.212A) Active confirmed Problem 683171712 Encounter for screening mammogram for malignant neoplasm of breast (Z12.31) Active confirmed Problem 699589924 Bariatric surger y status (Z98.84) Active confirmed Problem 613798825 Menopause (Z78.0) Active confirmed Problem 87611307 Acute pain of le ft shoulder (M25.512) Active confirmed Problem 173072196 Lumbosacral spondylosis with radiculopathy (M47.27) Active confirmed Problem 37252502 Anxiety, general ized (F41.1) Active confirmed Problem 936931697 Synovial cyst of lumbar spine (M71.38) Active confirmed Problem 140715071 Pure hypercholesterolemia, unspecified (E78.00) Active confirmed Problem 94250030 Sjogren's syndro me with keratoconjunctivitis sicca (M35.01) Active confirmed Problem 673474988 At low risk for fall (Z91.81) Active confirmed Problem 462810848 Closed displaced fracture of proximal phalanx of right great toe with routine healing, subsequent encounter (S92.411D) Active confirmed Problem 08870245 Recur major depr e, 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) Active confirmed Problem 362418554 Gastroesophageal reflux disease with esophagitis without hemorrhage (K21.00) Active confirmed Problem 8273542680 Unexplained interior block wirer brent cough (R05.3) Active confirmed Plan Of Treatment No Information Insurance Providers Payer Name Payer Address Payer Phone Subscriber Number Group Number Insured Name Patient Relationship to Insured Coverage Start Date Coverage End Date MEDICARE [place] [address] [phone] [id number] Emily Schmitt Self - patient is the insured MMO MEDICARE SUPPLEMENT [address] [place] [phone] [id number] Emily Schmitt Self - patient is the insured Medical (General) History Medical History History ICD Code Closed non-physeal fracture of proximal phalanx of right great toe with routine healing S92.411D Osteopenia of multiple sites M85.89 Essential (primary) hypertension I10 Vitamin D deficiency, unspecified E55.9 Bariatric surgery status Z98.84 Pure hypercholesterolemia, unspecified E 78.00 Menopause Z78.0 Encounter for screening mammogram for ma lignant neoplasm of breast Z12.31 At low risk for fall Z91.81 Recur major depre, part remis F33.41 Primary osteoarthritis, right shoulder M 19.011 Primary osteoarthritis, left shoulder M1 9.012 Spondylosis without myelopathy or radicu lopathy, lumbar region M47.816 Strain of muscle, fascia and tendon of other parts of biceps, left arm, initial encounter S46.212A Synovial cyst of lumbar spine M71.38 Lumbago with sciatica, left side M54.42 Lumbago with sciatica, right side M54.41 Lumbosacral spondylosis with radiculopat hy M47.27 Acute pain of left shoulder M25.512 Strain of muscle(s) and tend on(s) of the rotator cuff of left shoulder, initial encounter S46.012A Sjogren's syndrome with keratoconjunctiv itis sicca M35.01 Gastroesophageal reflux disease with eso phagitis without hemorrhage K21.00 Unexplained chronic cough R05.3 Iron deficiency E61.1 Primary insomnia F51.01 Anxiety, generalized F41.1 Surgical History Surgery Date(Month/Year) Bariatric Surg 2004 Cholecysectomy 2006 Colonoscopy 09/23/2021
--- OUTSIDE RECORDS SUMMARY | 2025-03-13 16:55 | XMS_ITS | Clinical Summary ---
Author Organization [employer] [facility] Address [id number] [address] [place] [address] Care Team Providers Care Catering Convention Services Manager Name Role Phone Tirso Barney DO Primary Care Provider Allergies No known active allergies Medications sodium,potassiu m,mag sulfates (SUPREP BOWEL PREP KIT) 17.5-3.13-1.6 gram recon soln 177 ml,actual weight, 2 times daily, Oral 177 mL 09/07/2021 Active lisinopril-hydr oCHLOROthiazide (PRINZIDE,ZESTO RETIC) 10-12.5 mg per tablet Take 1 tablet by mouth daily. 10/24/2015 Active clonazePAM (KlonoPIN) 0.5 mg tablet Take 0.5 mg by mouth 2 (two) times a day as needed for seizures. Active ziprasidone (GEODON) 20 mg capsule Take 20 mg by mouth 2 (two) times a day with meals. Active venlafaxine (EFFEXOR) 75 mg tablet Take 75 mg by mouth 2 (two) times a day. Active lamoTRIgine (LaMICtal) 100 mg tablet Take 100 mg by mouth daily. Active zolpidem CR (AMBIEN CR) 12.5 mg CR tablet Take 12.5 mg by mouth nightly as needed for sleep. Active traMADoL (ULTRAM) 50 mg tablet Take 50 mg by mouth every 6 (six) hours as needed for pain. Active Active Problems Problem Noted Date Diagnosed Date BMI 40.0-44.9, adult 09/25/2021 Family History Medical History Relation Name Comments Drug abuse Brother Murray Sid Mental illness Brother Murray Lau COPD Father Diego Lau Colon cancer Father Diego Lau Heart disease Father Diego Lau Relation Name Status Comments Brother Murray Lau Father Diego Lau Social History Tobacco Use Types Packs/Day Years Used Date Smoking Tobacco: Never Smokeless Tobacco: Never Alcohol Use Standard Drinks/Week Comments Yes 0 (1 standard drink = 0.6 oz pure alcohol) social, before bed, occasional wine drinker Childcare Answer Date Recorded Childcare Unknown 04/04/2019 Employment Answer Date Recorded Employment Unknown 04/04/2019 Comments Unknown Sex and Gender Information Value Date Recorded Sex Assigned at Not on file Legal Sex Female 11:23 AM EDT Gender Identity Not on file Sexual Orientation Not on file Last Filed Vital Signs Vital Sign Reading Time Taken Comments Blood Pressure 136/72 09/07/2021 2:38 PM EST Pulse - - Temperature 36.4 C (97.5 F) 09/07/2021 2:38 PM EST Respiratory Rate - - Oxygen Saturation - - Inhaled Oxygen Concentration - - Weight 107 kg (236 lb) 09/07/2021 2:38 PM EST Height 157.5 cm (5' 2 ) 09/07/2021 2:38 PM EST Body Mass Index 43.16 09/07/2021 2:38 PM EST Plan of Treatment Health Maintenance Due Date Last Done Comments Depression Screening 1968 Tobacco Screening 1968 Adult BMI Screening 1974 Zoster (Shingles) Vaccine (1 of 2) 2006 Fall Risk Screening 2021 COVID-19 Vaccine (2023-2 5 season) 2024 08/19/2021, 01/24/2021, 12/27/2020 Influenza Vaccine 06/24/2025 07/26/2019, 08/05/2018 DTaP,Tdap and Td Vaccines (2 - Td or Tdap) 07/21/2029 07/21/2019 Medical Devices Not on file Insurance [employer] Care Teams Catering Convention Services Manager Relationship Specialty Start Date End Date Tirso Barney DO [address] [place] [address] PCP - General Internal Medicine 09/07/21
--- OUTSIDE RECORDS SUMMARY | 2025-03-13 16:55 | XMS_ITS | Clinical Summary ---
Author Organization [facility] Address [address] [place] [address] Care Team Providers Care Interactive Media Marketing Director Name Role Phone Unavailable Primary Care Provider Unavailabl e Social History Tobacco Use Types Packs/Day Years Used Date Smoking Tobacco: Never Assessed Comments Unknown Sex and Gender Information Value Date Recorded Sex Assigned at Not on file Legal Sex Female 6:47 PM EDT Gender Identity Not on file Sexual Orientation Not on file Last Filed Vital Signs Vital Sign Reading Time Taken Comments Blood Pressure 101/64 03/08/2019 12:00 PM EDT Pulse - - Temperature - - Respiratory Rate - - Oxygen Saturation - - Inhaled Oxygen Concentration - - Weight 102 kg (224 lb) 03/08/2019 12:00 PM EDT Height 160 cm (5' 3 ) 03/08/2019 12:00 PM EDT Body Mass Index 39.68 03/08/2019 12:00 PM EDT Plan of Treatment Not on file
[2025-03-13 17:03] VITALS: BP 135/85; PULSE 86; TEMP 36.9; O2SAT 97; BMI 42.0
--- NOTE | 2025-03-13 17:06 | ED.GENADUL1 ---
HPI HPI - General Adult General Chief complaint: Extremity Injury, Lower Stated complaint: fall Time Seen by Provider: 03/13/25 16:55 History of Present Illness HPI narrative: The patient is a 69-year-old female who presents to the emergency department today for evaluation concerns for injuries following multiple falls. She endorses on 03/11 she was exiting her car when she stepped up on a curb that hit an uneven surface and subsequently fell forward onto a grassy area. She mentioned she had difficulty pushing herself up as she reports her shoulder gave out . She mentions at that time she did sustain some pain to her left hip/buttock region. She mentions a neighbor saw this and helped her up. She additionally endorses last night while folding close sitting on the edge of her bed she slid forward and fell in between the bed and the wall. She does not believe she hit her head but does report some pain again to her right shoulder and cervical region. She had mention she did have difficulty getting up due to the pain in her right shoulder. Otherwise no paresthesias coming as well as of movement to any extremities. She denies any sick symptoms of fever/chills, cough/cold symptoms, abdominal pain, nausea/vomiting/diarrhea. No urinary symptoms or back/flank pain. Takes, dizziness, or subsequent syncope. She has a history of shoulder surgery remotely and is on Ultram 3 times a day. Related Data Home Medications ?Medication ?Instructions ?Recorded ?Confirmed buspirone 15 mg tablet 15 mg PO BID 03/13/25 03/13/25 cholecalciferol (vitamin D3) 1,250 50,000 unit PO .WK 03/13/25 03/13/25 mcg (50,000 unit) capsule clonazepam 1 mg tablet 1 mg PO TID 03/13/25 03/13/25 venlafaxine 75 mg tablet 75 mg PO Q8H 03/13/25 03/13/25 ziprasidone HCl 40 mg capsule 40 mg PO .QHS 03/13/25 03/13/25 zolpidem 12.5 mg tablet,extended 12.5 mg PO .QHS 03/13/25 03/13/25 release,multiphase Allergies Allergy/AdvReac Type Severity Reaction Status Date / Time No Known Drug Allergies Allergy Verified 03/13/25 16:53 Opioid HPI Opioid Management Most Recent Opioid Data: Last Pain Scale 4 11/26/23, 07:40 Review of Systems ROS Status of ROS 10 or more systems reviewed and unremarkable except as noted in history and below PFSH PFSH Social History Smoking status: Never smoker Little interest or pleasure in doing things: not at all Feeling down, depressed, or hopeless: not at all Exam Narrative Exam Narrative: Constituational: Awake/ alert, no apparent distress, well hydrated HENMT: normocephalic, external ears normal, moist oral mucous membranes and oropharynx normal Eyes: EOMI and conjunctivae normal Neck: ROM intact Chest: inspection of chest normal Respiratory: Normal respiratory effort, clear to auscultation bilaterally Cardio: regular rate and regular rhythm GI: soft to palpation and non-tender Back: nontender MSK: + With palpation over lateral aspect of R shoulder/proximal R humerus without surrounding edema, ecchymosis, crepitus, deformity, difficulty raising past 90 degrees due to pain in addition to difficulty with abduction due to pain. + Discomfort with palpation over posterior L femur/hip, patient and her shortening, pelvis stable, otherwise normal inspection of B/L UE and LE, +NVI Skin: no rashes or petechiae Neuro: no focal deficits, normal gait Psych: mental status grossly normal Constitutional Vital Signs, click to edit/add: Last Vital Signs Temp 98.5 F 03/13/25 17:03 Pulse 86 03/13/25 17:03 Resp 18 03/13/25 17:03 BP 135/85 03/13/25 17:03 Pulse Ox 97 03/13/25 17:03 O2 Del Method Room Air 03/13/25 17:03 Course Vital Signs Vital signs: Vital Signs Temperature 98.5 F 03/13/25 17:03 Pulse Rate 86 03/13/25 17:03 Respiratory Rate 18 03/13/25 17:03 Blood Pressure 135/85 03/13/25 17:03 Pulse Oximetry 97 03/13/25 17:03 Oxygen Delivery Method Room Air 03/13/25 17:03 Temperature 98.5 F 03/13/25 17:03 Pulse Rate 86 03/13/25 17:03 Respiratory Rate 18 03/13/25 17:03 Blood Pressure 135/85 03/13/25 17:03 Pulse Oximetry 97 03/13/25 17:03 Oxygen Delivery Method Room Air 03/13/25 17:03 Medical Decision Making [facility] Narrative Medical decision making narrative: The patient is a well-appearing 69-year-old female who presented to the emergency department today for evaluation of concerns for injuries mostly to her right shoulder following mechanical fall x 2 2 days prior and yesterday. Initial examination and vital signs overall stable. No concerning neurovascular or motor findings on exam. Patient endorsed some discomfort that is overall mild in nature to both the right shoulder and left posterior hip/proximal femur and diffusely across the lower cervical region. CT imaging of head and neck without critical findings. X-ray imaging of right shoulder, left hip, left femur without critical findings. Patient is ambulatory. She is moving all extremities with normal and equal strength. No obvious injuries on exam. On reevaluation she continues to be well-appearing. Discussed these findings with the patient including recommendations for supportive care following mechanical fall x 2 and likely shoulder strain. Advised on follow-up with patient's primary care provider for reevaluation. Discussed signs and symptoms of any worsening condition and when to consider reevaluation. Patient verbalized an understanding of this and is agreeable with the plan to be discharged home. Medical Records Medical records reviewed: Yes I reviewed the patient's medical records Imaging Data CT scan - head: Attestation: I have reviewed the pertinent imaging results. Radiologist's impression: ITS Impressions Femur X-Ray 03/13/25 17:30 IMPRESSION: No acute displaced fracture Impression dictated by: Carlos Silva M.D. 03/13/2025 5:43 PM Dictation Location: [facility] Electronically authenticated by: [id number] Y Date: 03/13/2025 17:43 Hip/Pelvis X-Ray 03/13/25 17:30 IMPRESSION: No acute displaced fracture Impression dictated by: Carlos Silva M.D. 03/13/2025 5:41 PM Dictation Location: [facility] Electronically authenticated by: [id number] Y Date: 03/13/2025 17:41 Shoulder X-Ray 03/13/25 17:30 IMPRESSION: Uncomplicated right shoulder arthroplasty. No acute displaced fracture. Impression dictated by: Carlos Silva M.D. 03/13/2025 5:42 PM Dictation Location: [facility] Electronically authenticated by: [id number] Y Date: 03/13/2025 17:[address] 03/13/25 17:38 IMPRESSION: No acute process Impression dictated by: Carlos Silva M.D. 03/13/2025 6:24 PM Dictation Location: [facility] Electronically authenticated by: [id number] Y Date: 03/13/2025 18:[address] 03/13/25 17:38 IMPRESSION: No acute findings. Impression dictated by: Carlos Silva M.D. 03/13/2025 6:22 PM Dictation Location: [facility] Electronically authenticated by: [id number] Y Date: 03/13/2025 18:22 CT cervical spine: Attestation: I have reviewed the pertinent imaging results. Radiologist's impression: ITS Impressions Femur X-Ray 03/13/25 17:30 IMPRESSION: No acute displaced fracture Impression dictated by: Carlos Silva M.D. 03/13/2025 5:43 PM Dictation Location: [facility] Electronically authenticated by: [id number] Y Date: 03/13/2025 17:43 Hip/Pelvis X-Ray 03/13/25 17:30 IMPRESSION: No acute displaced fracture Impression dictated by: Carlos Silva M.D. 03/13/2025 5:41 PM Dictation Location: [facility] Electronically authenticated by: [id number] Y Date: 03/13/2025 17:41 Shoulder X-Ray 03/13/25 17:30 IMPRESSION: Uncomplicated right shoulder arthroplasty. No acute displaced fracture. Impression dictated by: Carlos Silva M.D. 03/13/2025 5:42 PM Dictation Location: [facility] Electronically authenticated by: [id number] Y Date: 03/13/2025 17:[address] 03/13/25 17:38 IMPRESSION: No acute process Impression dictated by: Carlos Silva M.D. 03/13/2025 6:24 PM Dictation Location: [facility] Electronically authenticated by: [id number] Y Date: 03/13/2025 18:[address] 03/13/25 17:38 IMPRESSION: No acute findings. Impression dictated by: Carlos Silva M.D. 03/13/2025 6:22 PM Dictation Location: [facility] Electronically authenticated by: [id number] Y Date: 03/13/2025 18:22 XR right shoulder: Attestation: I have reviewed the pertinent imaging results. Radiologist's impression: ITS Impressions Femur X-Ray 03/13/25 17:30 IMPRESSION: No acute displaced fracture Impression dictated by: Carlos Silva M.D. 03/13/2025 5:43 PM Dictation Location: [facility] Electronically authenticated by: [id number] Y Date: 03/13/2025 17:43 Hip/Pelvis X-Ray 03/13/25 17:30 IMPRESSION: No acute displaced fracture Impression dictated by: Carlos Silva M.D. 03/13/2025 5:41 PM Dictation Location: [facility] Electronically authenticated by: [id number] Y Date: 03/13/2025 17:41 Shoulder X-Ray 03/13/25 17:30 IMPRESSION: Uncomplicated right shoulder arthroplasty. No acute displaced fracture. Impression dictated by: Carlos Silva M.D. 03/13/2025 5:42 PM Dictation Location: [facility] Electronically authenticated by: [id number] Y Date: 03/13/2025 17:[address] 03/13/25 17:38 IMPRESSION: No acute process Impression dictated by: Carlos Silva M.D. 03/13/2025 6:24 PM Dictation Location: [facility] Electronically authenticated by: [id number] Y Date: 03/13/2025 18:[address] 03/13/25 17:38 IMPRESSION: No acute findings. Impression dictated by: Carlos Silva M.D. 03/13/2025 6:22 PM Dictation Location: [facility] Electronically authenticated by: [id number] Y Date: 03/13/2025 18:22 XR left hip: Attestation: I have reviewed the pertinent imaging results. Radiologist's impression: ITS Impressions Femur X-Ray 03/13/25 17:30 IMPRESSION: No acute displaced fracture Impression dictated by: Carlos Silva M.D. 03/13/2025 5:43 PM Dictation Location: [facility] Electronically authenticated by: [id number] Y Date: 03/13/2025 17:43 Hip/Pelvis X-Ray 03/13/25 17:30 IMPRESSION: No acute displaced fracture Impression dictated by: Carlos Silva M.D. 03/13/2025 5:41 PM Dictation Location: [facility] Electronically authenticated by: [id number] Y Date: 03/13/2025 17:41 Shoulder X-Ray 03/13/25 17:30 IMPRESSION: Uncomplicated right shoulder arthroplasty. No acute displaced fracture. Impression dictated by: Carlos Silva M.D. 03/13/2025 5:42 PM Dictation Location: [facility] Electronically authenticated by: [id number] Y Date: 03/13/2025 17:[address] 03/13/25 17:38 IMPRESSION: No acute process Impression dictated by: Carlos Silva M.D. 03/13/2025 6:24 PM Dictation Location: [facility] Electronically authenticated by: [id number] Y Date: 03/13/2025 18:[address] 03/13/25 17:38 IMPRESSION: No acute findings. Impression dictated by: Carlos Silva M.D. 03/13/2025 6:22 PM Dictation Location: [facility] Electronically authenticated by: [id number] Y Date: 03/13/2025 18:22 XR left femur: Attestation: I have reviewed the pertinent imaging results. Radiologist's impression: ITS Impressions Femur X-Ray 03/13/25 17:30 IMPRESSION: No acute displaced fracture Impression dictated by: Carlos Silva M.D. 03/13/2025 5:43 PM Dictation Location: [facility] Electronically authenticated by: [id number] Y Date: 03/13/2025 17:43 Hip/Pelvis X-Ray 03/13/25 17:30 IMPRESSION: No acute displaced fracture Impression dictated by: Carlos Silva M.D. 03/13/2025 5:41 PM Dictation Location: [facility] Electronically authenticated by: [id number] Y Date: 03/13/2025 17:41 Shoulder X-Ray 03/13/25 17:30 IMPRESSION: Uncomplicated right shoulder arthroplasty. No acute displaced fracture. Impression dictated by: Carlos Silva M.D. 03/13/2025 5:42 PM Dictation Location: [facility] Electronically authenticated by: [id number] Y Date: 03/13/2025 17:[address] 03/13/25 17:38 IMPRESSION: No acute process Impression dictated by: Carlos Silva M.D. 03/13/2025 6:24 PM Dictation Location: [facility] Electronically authenticated by: [id number] Y Date: 03/13/2025 18:[address] 03/13/25 17:38 IMPRESSION: No acute findings. Impression dictated by: Carlos Silva M.D. 03/13/2025 6:22 PM Dictation Location: [facility] Electronically authenticated by: [id number] Y Date: 03/13/2025 18:22 Discharge Plan Discharge Chief Complaint: Extremity Injury, Lower Clinical Impression: Strain of shoulder, right, Fall Patient Disposition: Home, Self-Care Prescriptions / Home Meds: No Action venlafaxine 75 mg tablet 75 mg PO Q8H clonazepam 1 mg tablet 1 mg PO TID ziprasidone HCl 40 mg capsule 40 mg PO .QHS buspirone 15 mg tablet 15 mg PO BID zolpidem 12.5 mg tablet,ext release multiphase 12.5 mg PO .QHS cholecalciferol (vitamin D3) 1,250 mcg (50,000 unit) capsule 50,000 unit PO .WK Print Language: Hungarian Instructions: Muscle Strain (ED), Fall Prevention for Older Adults (ED) Additional Instructions: May take Tylenol and continue your current analgesic regimen. Rest, ice any sore areas. Please up with your primary care provider for reevaluation as discussed. Referrals: Tirso Barney DO [Primary Care Provider, Internal Medicine] - 1 week
--- OUTSIDE RECORDS SUMMARY | 2025-03-13 17:07 | XMS_ITS | CCD ---
Author Organization [facility] Care Team Providers Care Emergency Medicine Nurse Practitioner Name Role Phone MD Lloyd Walsh Attending Provider DO Tirso Barney Primary Care Provider [phone] Gerson Ochoa Unavailable Lloyd Walsh Unavailable Tirso Barney Unavailable AMBER DOYLE Attending Unavailable AMBER DOYLE Admitting Unavailable ANALY, DR JOANN Mohr Consulting Unavailable BALL, DR LORD Primary Care Unavailable AMBER DOYLE Consulting Unavailable ECTOR, DR LORD Primary Care Unavailable ECTOR, DR LORD Attending Unavailable BALL, DR LORD Admitting Unavailable HAY ., DR CAMPOS Attending Unavailable HAY ., DR CAMPOS Admitting Unavailable BALL, DR LORD Primary Care Unavailable GRECHNY ., ROYCE PALMA Consulting Unavailjodi e SHAVONNE ., DR CAMPOS Consulting Unavailable JULIO, GURPREET Consulting Unavailable ANDREA, SUNNY Armando Attending Unavailable HIGHLSHAY, SUNNY Armando Admitting Unavailable ZIEBVIMAL, DR MAURILIO Masterson Consulting Unavailable BALL, DR LORD Primary Care Unavailable HIGHLSHAY, SUNNY Armando Consulting Unavailable BALL, DR LORD Primary Care Unavailable BALL, DR LORD Consulting Unavailable ECTOR, DR LORD Attending Unavailable BALL, DR LORD Admitting Unavailable ZIOWEN, DR MAURILIO Masterson Consulting Unavailable ECTOR, DR LORD Primary Care Unavailable BALL, DR LORD Consulting Unavailable BALL, DR LORD Attending Unavailable BALL, DR LORD Admitting Unavailable ANALY, DR JOANN Mohr Consulting Unavailable ECTOR, DR LORD Consulting Unavailable BALL, DR LORD Primary Care Unavailable BALL, DR LORD Attending Unavailable BALL, DR LORD Admitting Unavailable WEST, DR JOANN Mohr Consulting Unavailable BALL, DR LORD Attending Unavailable BALL, DR LORD Admitting Unavailable BALL, DR LORD Primary Care Unavailable WEST, DR JOANN Mohr Consulting Unavailable HIGHLSHAY, SUNNY Armando Attending Unavailable HIGHLSHAY, SUNNY Armando Admitting Unavailable BALL, DR LORD Primary Care Unavailable ANDREA, SUNNY Armando Consulting Unavailable ECTOR, DR LORD Consulting Unavailable BALL, DR LORD Admitting Unavailable BALL, DR LORD Attending Unavailable BALL, DR LORD Primary Care Unavailable Ball, DO Tirso Primary Care Provider Delores, DO Andres A Attending Provider Ball, DO Tirso Primary Care Provider Delores, DO Andres A Attending Provider [phone] Ball DO, Tirso Primary Care Provider Delores DO, Andres A Attending Provider Ball DO, Tirso Primary Care Provider Delores DO, Andres A Attending Provider Ball DO, Tirso Primary Care Provider Delores DO, Andres A Attending Provider [phone] Ball, Tirso Primary Care Unavailable Delores, Andres A Attending Unavailable Delores, Andres A Admitting Unavailable Ball, Tirso Primary Care Unavailable Delores, Andres A Attending Unavailable Delores, Andres A Admitting Unavailable Ball, [place] Primary Care Unavailable Delores, Andres A Attending Unavailable Delores, Andres A Admitting Unavailable Ball, [place] Primary Care Unavailable Delores, Andres A Attending Unavailable Delores, Andres A Admitting Unavailable Ball, [place] Primary Care Unavailable Delores, Andres A Attending Unavailable Delores, Andres A Admitting Unavailable Ball, [place] Primary Care Unavailable Delores, Andres A Attending Unavailable Delores, Andres A Admitting Unavailable Ball, [place] Primary Care Unavailable Delores, Andres A Attending Unavailable Delores, Andres A Admitting Unavailable Delores, Andres A Admitting Unavailable Ball, [place] Primary Care Unavailable Delores, Andres A Attending Unavailable Delores, Andres A Admitting Unavailable Ball, [place] Primary Care Unavailable Delores, Andres A Attending Unavailable Delores, Andres A Admitting Unavailable Ball, [place] Primary Care Unavailable Delores, Andres A Attending Unavailable Delores, Andres A Admitting Unavailable Ball, [place] Primary Care Unavailable Delores, Andres A Attending Unavailable Delores, Andres A Admitting Unavailable Ball, [place] Primary Care Unavailable Delores, Andres A Attending Unavailable Ball DO, Tirso Primary Care Provider Deloresallison SHANKAR Andres A Attending Provider [phone] Allergies Allergy Classification Reported Allergen(s) Allergy Type Date of Onset Reaction(s) Facility (3 sources) Esomeprazole Drug Allergy 3 Unknown [facility] Other (10 sources) Lisinopril Drug Allergy Unknown [facility] Other (10 sources) NexIUM *ULCER DRUGS/ANTISPASMO DICS/ANTICHOLINE RGIC Propensity to adverse reactions Unknown [facility] Other (3 sources) Allergies Reconciled Propensity to adverse reactions Unknown [facility] Other (3 sources) patient allergy list reviewed by nurse or physicia Propensity to adverse reactions 6 Comment:Done [facility] Other Medications Current Medications Medication Drug Class(es) Dates Sig (Normalized) Sig (Original) busPIRone hydrochloride 15 mg oral tablet (12 sources) Start: 05-08-2024 take 1 tablet by mouth twice daily Buspirone 15 mg tablet Active 15 MG PO Twice daily May 08, 2024 12:00am cholecalciferol 1.25 mg oral capsule (20 sources) Vitamin D Start: 02-10-2024 End: 12-31-2024 take 1 capsule by mouth every week Cholecalciferol (Vitamin D3) 1,250 mcg (50,000 unit) capsule Active 0 .ROUTE .COMPLEX December 31, 2024 8:41pm TAKE 1 CAPSULE BY MOUTH ONE TIME PER WEEK Start: 02-10-2024 take 1 capsule by [facility] every week Cholecalciferol (Vitamin D3) Active 0 .ROUTE .COMPLEX February 10, 2024 12:37pm TAKE 1 CAPSULE BY MOUTH ONE TIME PER WEEK Start: 02-10-2024 End: 02-10-2024 take 1 capsule by mouth every week Cholecalciferol (Vitamin D3) 1,250 mcg (50,000 unit) capsule Discontinued 1250 MCG PO every week February 10, 2024 12:00am February 10, 2024 1:37pm Start: 01-02-2024 End: 10-30-2024 take 1 capsule by mouth once daily Cholecalciferol (Vitamin D3) 125 mcg (5,000 unit) capsule Discontinued 125 MCG PO Daily January 02, 2024 12:00am October 30, 2024 2:32pm take 1 capsule by mo [facility] every week Vitamin D3 1.25 MG (80980 UT) TAKE 1 CAPSULE BY MOUTH ONE TIME PER WEEK for 90 Active clonazePAM 0.5 mg oral tablet (20 sources) Benzodiazepine Start: 05-08-2024 take 1 tablet by mouth once daily at bedtime Clonazepam 0.5 mg tablet Active 0.5 MG PO Daily at bedtime May 08, 2024 12:00am Start: 01-02-2024 take 1 tablet by [facility] three times daily Clonazepam 1 mg tablet Active 1 MG PO Three times daily January 02, 2024 12:00am Start: 01-02-2024 take 1 mg by mouth [...] 0 .ROUTE .COMPLEX 90 March 15, 2024 5:43pm TAKE 1 TABLET BY MOUTH EVERY DAY Start: 01-02-2024 End: 03-15-2024 take 1 tablet by mouth once daily Lisinopril-Hydrochlorothiazide 10-12.5 m g tablet Discontinued 1 TAB PO Daily January 02, 2024 12:00am March 15, 2024 5:44pm take 1 tablet by [facility] once daily Lisinopril-hydroCHLOROthiazide 10-12.5 M G TAKE 1 TABLET BY MOUTH EVERY DAY Active Lisinopril-hydro CHLOROthiazide 10-12.5 MG Oral Active lamoTRIgine 100 mg oral tablet (20 sources) Mood Stabilizer, Anti-epileptic Agent Start: 02-23-2024 take 2 tablets by mouth once daily in the morning Lamotrigine 100 mg tablet Active 100 MG PO Every morning February 23, 2024 12:00am 200 mg @ HS Start: 02-23-2024 take 200 mg by mouth once daily in the morning Lamotrigine Active 100 MG PO Every morning February 22, 2024 11:00pm 200 mg @ HS Start: 02-23-2024 Lamotrigine Ac tive MG PO February 23, 2024 12:00am take 1 tablet by nidia every twenty-four hours LaMICtal 100 MG 1 tablet Orally Once a day Not-Taking/PRN phentermine hydrochloride 37.5 mg oral tablet (10 sources) Sympathomimetic Amine Anorectic Start: 09-12-2023 take 1 tablet by mouth once daily before breakfast Adipex-P 37.5 MG 1 tablet before breakfast Orally Once a day for 30 days Aug, Active Start: 08-04-2023 take 1 tablet by nidia once daily before breakfast Adipex-P 37.5 MG 1 tablet before breakfast Orally Once a day for 30 days Jul, Active Start: 06-30-2023 take 1 tablet by nidia once daily before breakfast Adipex-P 37.5 MG 1 tablet before breakfast Orally Once a day for 30 days Jun, Active Start: 06-21-2023 [facility] Adipex-P 37.5 MG 1 tablet before breakfast Orally Once a day for 30 days start 05/16May, Active Start: 04-13-2023 [facility] daily before breakfast Adipex-P 37.5 MG 1 tablet before breakfast Orally Once a day for 30 days Mar, Active Start: 01-11-2023 [facility] daily before breakfast Adipex-P 37.5 MG 1 tablet before breakfast Orally Once a day for 30 days Dec, Active traMADol hydrochloride 50 mg oral tablet (20 sources) Opioid Agonist Start: 11-27-2024 End: 02-07-2025 take 1 tablet by mouth every six hours as needed for pain Tramadol 50 mg tablet Active 50 MG PO Every 6 hours as needed for pain 120 February 07, 2025 2:31pm Start: 09-11-2024 End: 11-27-2024 take 1 tablet by mouth four times daily as needed for pain Tramadol 50 mg tablet Discontinued 50 MG PO Four times daily as needed for pain 120 October 18, 2024 6:21pm November 27, 2024 9:56pm Start: 06-29-2024 End: 09-11-2024 take 1 tablet by mouth three times daily as needed for pain Tramadol 50 mg tablet Discontinued 50 MG PO Three times daily as needed for pain 90 June 29, 2024 4:26pm July 27, 2024 10:48am Start: 01-02-2024 End: 06-19-2024 take 1 tablet by mouth every six hours as needed for pain Tramadol 50 mg tablet Discontinued 50 MG PO Every 6 hours as needed for pain 120 30 May 21, 2024 9:53am June 19, 2024 12:34pm Start: 10-10-2023 take 1 tablet by nidia [...] 50 MG Oral for 30 Days Active venlafaxine 75 mg oral tablet (20 sources) Serotonin and Norepinephrine Reuptake Inhibitor Start: 01-02-2024 take 1 tablet by mouth three times daily Venlafaxine 75 mg tablet Active 75 MG PO Three times daily January 02, 2024 12:00am take 1 tablet by nidia th every twenty-four hours Venlafaxine HCl 75 MG 1 tablet with food Orally Once a day Not-Taking/PRN Vitamin D3 (12 sources) Vitamin D3 Activ e ziprasidone 20 mg oral capsule (20 sources) Atypical Antipsychotic Start: take 1 capsule by mouth once daily at bedtime Ziprasidone Hcl 40 mg capsule Active 40 MG PO Daily at bedtime May 08, 2024 12:00am Start: 05-08-2024 take 1 capsule by mo ut once daily in the morning Ziprasidone Hcl 20 mg capsule Active 20 MG PO Every morning May 08, 2024 12:00am take 1 capsule by mo ut every twelve hours Geodon 20 MG 1 capsule with food Orally Twice a day Not-Taking/PRN zolpidem tartrate 12.5 mg extended release oral tablet (20 sources) gamma-Aminobutyric Acid-ergic Agonist Start: 05-08-2024 take 1 tablet by mouth once daily at bedtime Zolpidem 12.5 mg tablet,ext release multiphase Active 12.5 MG PO Daily at bedtime May 08, 2024 12:00am take 1 tablet by nidia every twenty-four hours Ambien CR 12.5 MG 1 tablet at bedtime as needed Orally Once a day Not-Taking/PRN Completed/Discontinued Medications Medication Drug Class(es) Dates Sig (Normalized) Sig (Original) acetaminophen 500 mg oral tablet (11 sources) Start: 05-22-2024 End: 06-19-2024 take 1 tablet by mouth every six hours as needed for pain Acetaminophen 500 mg tablet Discontinued 500 MG PO Q6H as needed for Pain May 22, 2024 12:00am June 19, 2024 12:33pm DO NOT RECONCILE UNTIL DOS 05/23/24 TO BE USED POST OP acetaminophen 325 mg / HYDROcodone bitartrate 5 mg oral tablet (20 sources) Opioid Agonist Start: 03-27-2024 End: 04-17-2024 take 1 tablet by mouth twice daily as needed for pain Hydrocodone-Acetami nophen 5-325 mg tablet Discontinued 1 TAB PO Twice daily as needed for pain 14 March 27, 2024 April 17, 2024 4:43pm Start: 12-12-2023 End: 01-23-2024 take 1 tablet by mouth three times daily as needed for pain Hydrocodone-Acetaminophen 5-325 mg table t Discontinued 1 TAB PO Three times daily as needed for pain 20 05December 12, 2023 January 13, 2024 4:28pm Start: 11-30-2023 take 1 tablet by nidia th three times daily as needed for pain HYDROcodone-Acetaminophen 5-325 MG 1 tab let Orally tid as needed for pain for 7 days Nov, Active amoxicillin 500 mg oral tablet (6 sources) Penicillin-class Antibacterial Start: 09-25-2024 End: 10-30-2024 take 4 tablets by mouth once Amoxicillin 500 mg tablet Discontinued 2000 MG PO once 4 September 25, 2024 1:00am October 30, 2024 2:32pm aspirin 81 mg chewable tablet (11 sources) Platelet Aggregation Inhibitor, Nonsteroidal Anti-inflammatory Drug Start: 05-22-2024 End: 10-01-2024 take 1 tablet by mouth twice daily Aspirin 81 mg tablet,chewable Discontinued 81 MG PO Twice daily 60 May 22, 2024 12:00am October 01, 2024 2:48pm DO NOT RECONCILE UNTIL DOS 05/23/24 TO BE USED POST OP cyclobenzaprine hydrochloride 10 mg oral tablet (9 sources) Muscle Relaxant Start: 08-06-2024 End: 10-01-2024 take 5-10 mg by mouth every eight hours Cyclobenzaprine 10 mg tablet Discontinued 5 - 10 MG PO Q8H August 06, 2024 12:00am October 01, 2024 2:49pm diazePAM 10 mg oral tablet (18 sources) Benzodiazepine Start: 06-22-2022 diazePAM 10 MG Take 1 tablet 30 mins prior to MRI and 1 tablet at the time of MRI if needed Orally BID for 1 days May, Not-Taking/PRN docusate sodium 100 mg oral capsule (11 sources) Start: 05-22-2024 End: 10-01-2024 take 1 capsule by mouth twice daily as needed for constipation Docusate Sodium (Colace) 100 mg capsule Discontinued 100 MG PO Twice daily as needed for Constipation 20 May 22, 2024 12:00am October 01, 2024 2:46pm DO NOT RECONCILE UNTIL DOS 05/23/24 TO BE USED POST OP meloxicam 15 mg oral tablet (11 sources) Nonsteroidal Anti-inflammatory Drug Start: 05-22-2024 End: 06-19-2024 take 1 tablet by mouth once daily Meloxicam 15 mg tablet Discontinued 15 MG PO daily 14 May 22, 2024 12:00am June 19, 2024 12:33pm DO NOT RECONCILE UNTIL DOS 05/23/24 TO BE USED POST OP methocarbamol 750 mg oral tablet (20 sources) Muscle Relaxant Start: 06-19-2024 End: 10-01-2024 take 1 tablet by mouth twice daily as needed for muscle spasms Methocarbamol 750 mg tablet Discontinued 750 MG PO Twice daily as needed for muscle spasm 07 05June 26, 2024 10:14October 01, 2024 2:50pm Start: 06-12-2024 End: 06-19-2024 take 1 tablet by mouth four times daily as needed for muscle spasms Methocarbamol 750 mg tablet Discontinued 750 MG PO Four times daily as needed for muscle spasm 20 05June 12, 2024 12:00am June 19, 2024 12:59pm oxyCODONE hydrochloride 5 mg oral tablet (20 sources) Opioid Agonist Start: 06-12-2024 End: 06-29-2024 take 1 tablet by mouth every twelve hours as needed for pain Oxycodone 5 mg tablet Discontinued 5 MG PO Every 12 hours as needed for Pain 20 June 12, 2024 June 29, 2024 4:26pm Start: 05-28-2024 End: 06-12-2024 take 1 tablet by mouth every eight hours as needed for pain Oxycodone 5 mg tablet Discontinued 5 MG PO Every 8 hours as needed for Pain 15 June 05, 2024 June 12, 2024 11:56am Start: 05-22-2024 End: 05-28-2024 take 1 tablet by mouth every six hours as needed for pain Oxycodone 5 mg tablet Discontinued 5 MG PO Q6H as needed for Pain 20 05May 22, 2024 May 28, 2024 2:48pm DO NOT RECONCILE UNTIL DOS 05/23/24 TO BE USED POST OP polyethylene glycol 3350 20902 mg powder for oral solution (11 sources) Osmotic Laxative Start: 05-22-2024 End: 06-19-2024 Polyethylene Glycol 3350 (Miralax) 17 gram powder in packet Discontinued 17 GM PO daily 14 May 22, 2024 12:00am June 19, 2024 12:34pm 1 packet mixed with 8 ounces of fluid. DO NOT RECONCILE UNTIL DOS 05/23/24 TO BE USED POST OP polysaccharide iron complex 150 mg oral capsule (20 sources) Start: 01-02-2024 End: 10-01-2024 take 1 capsule by mouth once daily Polysaccharide Iron Complex 150 mg iron capsule Discontinued 150 MG PO Daily January 02, 2024 12:00am October 01, 2024 2:50pm take 1 capsule by [facility] every twenty-four hours Ferrex 150 150 MG 1 capsule Orally Once a day Active take 1 capsule by mo [facility] every other day as needed Polysaccharide Iron Complex 150 MG TAKE 1 CAPSULE BY MOUTH EVERY OTHER DAY for 90 Not-Taking/PRN traZODone hydrochloride 100 mg oral tablet (20 sources) Serotonin Reuptake Inhibitor Start: 05-21-2024 take 1 tablet by mouth once daily at bedtime as needed for sleep Trazodone 100 mg tablet Active 100 MG PO Daily at bedtime as needed for sleep 60 May 21, 2024 12:00am Start: 05-08-2024 End: 05-21-2024 take 2 tablets by mouth once daily at bedtime Trazodone 100 mg tablet Discontinued 200 MG PO Daily at bedtime 120 May 21, 2024 9:52am May 21, 2024 9:52am start 05/21 Start: 05-08-2024 End: 05-21-2024 take 200 mg by mouth once daily at bedtime Trazodone Discontinued 200 MG PO Daily at bedtime 120 May 21, 2024 8:52am May 21, 2024 8:52am start 05/21 Problems Active Problems Problem Classification Problem Date Documented Da te Episodic/Chronic Anxiety disorders (16 sources) Generalized anxiety disorder; Translations: [Generalized anxiety [...] sources) H/O: high risk medication; 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] Episodic Other aftercare (2 sources) Other [facility] (current) drug therapy; Translations: [OTH [facility] CURRENT DRUG THERAPY] Onset: 10-28-2022 Episodic Other aftercare (3 sources) Long-term current use of drug therapy; Translations: [Other [facility] (current) drug therapy] Episodic Other aftercare (13 sources) Drug therapy finding; Translations: [[facility] (current) use of opiate analgesic] 03-26-2024 Episodic Other aftercare (13 sources) [facility] (current) use of opiate analgesic; Translations: [Long-term (current) use of other medications] 03-27-2024 Episodic Other bone disease and musculoskeletal deformities (20 sources) Osteopenia; Translations: [Other specified disorders of [...] Onset: 02-28-2019 Chronic Other connective tissue disease (11 sources) History of reverse prosthetic total arthroplasty [...] of limb] Episodic Other connective tissue disease (13 sources) Supraspinatus tear; Translations: [Unspecified rotator cuff tear or rupture of unspecified shoulder, not specified as traumatic] 01-28-2024 Episodic Other connective tissue disease (10 sources) Spasm; Translations: [Other muscle spasm] 06-12-2024 [...] lower limb Chronic Other nervous system disorders (20 sources) Paresthesia; Translations: [Paresthesia of skin] 01-02-2024 Episodic Other nervous system disorders (6 sources) Abnormal gait; Translations: [Unsteadiness on feet] 10-30-2024 Episodic Other nervous system disorders (5 sources) Unsteadiness on feet; Translations: [Abnormality of gait] 10-30-2024 Episodic Other non-traumatic joint disorders (3 [...] Chronic Other nutritional; endocrine; and metabolic disorders (16 sources) Obesity; Translations: [Obesity, unspecified] 03-27-2024 Chronic Other nutritional; endocrine; and metabolic disorders (6 sources) Obese class II; Translations: [Body mass index 39.0-39.9, adult] Onset: 02-16-2016 Chronic Other nutritional; endocrine; and metabolic disorders (13 sources) Obesity, unspecified; Translations: [Obesity, unspecified] 03-27-2024 Chronic Other screening for suspected conditions (not mental disorders or infectious disease) (17 sources) Encounter for screening mammogram for malignant [...] [Other fecal abnormalities] Resolved: 09-27-2022 Episodic Other injuries and conditions due to [...] Reference Range Facility Basophils Auto (Bld) [#/Vol] on 11-05-2024 Basophils (Bld) [#/Vol] Automated basoph il count 0.0-0.1 [facility] Basophils/100 WBC Auto (Bld) on 11-05-2024 Basophils/100 WBC (Bld) Automated basophil % 0. 2-2.0 [facility] Cholesterol in LDL Calc [Mas s/Vol]on 11-05-2024 Cholesterol in LDL [Mass/Vol] Cholesterol in LDL [Mass/volume] in Serum or Plasma by calculation [facility] Comment on above: <100 mg/dl [id number] 0-129 mg/dl NEAR OR ABOVE [id number] mg/dl BORDERLINE [id number] mg/dl HIGH>190 mg/dl VERY HIGH Cholesterol in VLDL Calc [Ma ss/Vol]on 11-05-2024 Cholesterol in VLDL [Mass/Vol] Cholesterol in VLDL [Mass/volume] in Serum or Plasma by calculation [facility] Eosinophils/100 WBC Auto (Bl d)on 11-05-2024 Eosinophils/100 WBC (Bld) Automated eosinophil % 0.9-7.0 [facility] Erythrocyte distribution wid th Auto (RBC) [Ratio]on 11-05-2024 Erythrocyte distribution width (RBC) [Ratio] Erythrocyte distribution width [Ratio] by Automated count 11.0-15.0 [facility] Estimated glomerular filtrat ion rate (GFR) non- Americanon 11-05-2024 GFR/1.73 sq M.predicted among non-blacks MDRD (S/P/Bld) [Vol rate/Area] Estimated glomerular filtration rate (GFR) non- >=60 mL/min/1.73m 2 [facility] Globulin Calc (S) [Mass/Vol] on 11-05-2024 Globulin (S) [Mass/Vol] Serum globulin measurement by calculation (mass/volume) [facility] Hematocrit Auto (Bld) [Volum e fraction]on 11-05-2024 Hematocrit (Bld) [Volume fraction] Hematocrit [Volume Fraction] of Blood by Automated count 36.0-48.0 [facility] Hemoglobin [Mass/volume] in Bloodon 11-05-2024 Hemoglobin (Bld) [Mass/Vol] Hemoglobin [Mass/volume] in Blood 12.0-16.0 [facility] Laboratory - Chemistry and C hemistry - challengeon 11-05-2024 Albumin [Mass/Vol] 3.9 g/dL 3.4-5.0 [facility] ALP [Catalytic activity/Vol] 74 U/L 46-116 [facility] ALT [Catalytic activity/Vol] 30 U/L 14-59 [facility] AST [Catalytic activity/Vol] 14 U/L Low 15-37 [facility] Bilirubin [Mass/Vol] 0.3 mg/dL 0.2-1.0 [facility] Calcium [Mass/Vol] 8.9 mg/dL 8.5-10.1 [facility] Chloride [Moles/Vol] 104 mmol/L 98-107 [facility] Cholesterol [Mass/Vol] 181 mg/dL <=200 [facility] Cholesterol in HDL [Mass/Vol] 57 mg/dL 40-60 [facility] Comment on above: > or =60 mg/dl - LOW CARDIOVASCULAR RISK<40 mg/dl - HIGH CARDIOVASCULAR RISK CO2 [Moles/Vol] 26.8 mmol/L 21.0-32.0 [facility] Creatinine [Mass/Vol] 0.91 mg/dL 0.55-1.02 [facility] GFR/1.73 sq M.predicted MDRD (S/P/Bld) [Vol rate/Area] mL/min/{1.73_m2} >=60 mL/min/1.73m 2 [facility] Glucose [Mass/Vol] 114 mg/dL High 74-106 [facility] Potassium [Moles/Vol] 4.3 mmol/L 3.5-5.1 [facility] Protein [Mass/Vol] 7.1 g/dL 6.4-8.2 [facility] Sodium [Moles/Vol] 140 mmol/L 136-145 [facility] Triglyceride [Mass/Vol] 278 mg/dL High <=150 F [facility] TSH Qn 1.786 m[IU]/L 0.358-3.740 [facility] Urea nitrogen [Mass/Vol] 18.0 mg/dL 7.0-18.0 [facility] Urea nitrogen/Creatinine [Mass ratio] 19.8 mg/mg [facility] Laboratory - Hematology and Cell countson 11-05-2024 ESR (Bld) [Velocity] 15 mm/h <=30 [facility] Immature granulocytes/100 WBC (Bld) 0.3 % 0.0-0.5 [facility] Leukocytes [#/volume] correc michaela for nucleated erythrocytes in Blood by Automated counon 11-05-2024 WBC corrected for nucl RBC Auto (Bld) [#/Vol] Leukocytes [#/volume] corrected for nucleated erythrocytes in Blood by Automated coun 4.0-11.0 [facility] Lymphocytes Auto (Bld) [#/Vo l]on 11-05-2024 Lymphocytes (Bld) [#/Vol] Lymphocytes [#/volume] in Blood by Automated count 1.2-3.8 [facility] Lymphocytes/100 WBC Auto (Bl d)on 11-05-2024 Lymphocytes/100 WBC (Bld) Lymphocytes/100 leukocytes in Blood by Automated count 20.5-60.0 [facility] MCH Auto (RBC) [Entitic mass ]on 11-05-2024 MCH (RBC) [Entitic mass] MCH [Entitic ma ss] by Automated count 26.7-34.0 [facility] MCHC Auto (RBC) [Mass/Vol]on 11-05-2024 MCHC (RBC) [Mass/Vol] MCHC [Mass/volume] by Automated count 29.9-35.2 [facility] MCV Auto (RBC) [Entitic vol] on 11-05-2024 MCV (RBC) [Entitic vol] MCV [Entitic vol ume] by Automated count 81.0-99.0 [facility] Monocytes Auto (Bld) [#/Vol] on 11-05-2024 Monocytes (Bld) [#/Vol] Automated blood monocyte count 0.3-0.8 [facility] Monocytes/100 WBC Auto (Bld) on 11-05-2024 Monocytes/100 WBC (Bld) Automated monocyte % 1. 7-12.0 [facility] Neutrophils Auto (Bld) [#/Vo l]on 11-05-2024 Neutrophils (Bld) [#/Vol] Neutrophils [#/volume] in Blood by Automated count 1.4-6.5 [facility] Neutrophils/100 WBC Auto (Bl d)on 11-05-2024 Neutrophils/100 WBC (Bld) Automated neutrophil % 43.0-75.0 [facility] [facility] No Panel Informationon 11-05 C-Reactive Protein, Quantitative <0.50 mg/dL <=0.50 [facility] Eosinophils # (Auto) 0.2 10 3/uL 0.0-0.7 [facility] Immature Granulocyte # (Auto) 0.02 10 3/uL 0.00-0.03 [facility] Platelet mean volume Auto (B ld) [Entitic vol]on 11-05-2024 Platelet mean volume (Bld) [Entitic vol] Platelet mean volume [Entitic volume] in Blood by Automated count Low 9.5-13.5 [facility] Platelets Auto (Bld) [#/Vol] on 11-05-2024 Platelets (Bld) [#/Vol] Platelets [#/vol ume] in Blood by Automated count 150-450 [facility] RBC Auto (Bld) [#/Vol]on RBC (Bld) [#/Vol] Erythrocytes [#/volume] in Blood by Automated count Low 4.20-5.40 [facility] Serum or plasma albumin/glob ulin mass ratioon 11-05-2024 Albumin/Globulin [Mass ratio] Serum or plasma albumin/globulin mass ratio [facility] Serum or plasma anion gap de terminationon 11-05-2024 Anion gap [Moles/Vol] Serum or plasma an ion gap determination [facility] Serum or plasma total choles terol/high density lipoprotein (HDL) cholesterol mass michael 11-05-2024 Cholesterol.total/Choles terol in HDL [Mass ratio] Serum or plasma total cholesterol/high density lipoprotein (HDL) cholesterol mass rat [facility] Comment on above: 3.3 - 4.4 LOW RISK4. 4 - 7.1 AVERAGE RISK7.1 - 11.0 MODERATE RISK>11.0 HIGH RISK X-ray reportOrdered By: Jean Fine on 11-05-2024 Study report 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 No acute bony process. XR/XR shoulder RT min 2V* IMPRESSION: NO HARDWARE COMPLICATION. Impression dictated by: Tr Urbano Jr..OShanti11/05/2024 4:10 PM Dictation Location: [place] [address] Transcribed By: [facility] 11/05/24 1610 Dictated By: Jonny Fine Jr, DO 11/05/24 1609 Signed By: 11/05/[address] 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 No acute bony process. XR/XR shoulder RT min 2V* IMPRESSION: NO HARDWARE COMPLICATION. Impression dictated by: Jonny Fine Jr. D.OShanti11/05/2024 4:10 PM Dictation Location: [place] [address] Transcribed By: [facility] 11/05/24 1610 Dictated By: Jonny Fine Jr, DO 11/05/24 1609 Signed By: 11/05/24 1610 Normal [facility] Basophils Auto (Bld) [#/Vol] Ordered By: Andres Estrella on 10-01-2024 Basophils (Bld) [#/Vol] Automated basoph il count 0.0-0.2 [facility] Basophils/100 WBC Auto (Bld) Ordered By: Andres Estrella on 10-01-2024 Basophils/100 WBC (Bld) Automated basophil % . [facility] C reactive protein [Mass/vol ume] in Serum or PlasmaOrdered By: Andres Estrella on 10-01-2024 CRP [Mass/Vol] C reactive protein [Mass/volume] in Serum or Plasma 0.0-0.5 [facility] C-Reactive Proteinon 024 CRP [Mass/Vol] mg/L Normal 0.0-0.5 [facility] Comment on above: Result Comment: PERF ORMED BY: [place] [address] PATHOLOGIST POLE INSPECTOR EILEEN MCCONNELL M.D. Performed By: #### C RP, ESR, CBC #### [facility] [address] [place] [address] Complete Blood Count Auto Di ffon 10-01-2024 Basophils (Bld) [#/Vol] 0.1 10*3/uL Normal 0.0-0.2 [facility] Comment on above: Performed By: #### C RP, ESR, CBC #### [place] [address] [place] Basophils/100 WBC (Bld) 1.3 % Normal . T [facility] Comment on above: Performed By: #### C RP, ESR, CBC #### [place] [address] [place] Eosinophils (Bld) [#/Vol] 0.2 10*3/uL Normal 0.0-0.45 [facility] Comment on above: Performed By: #### C RP, ESR, CBC #### [address] Eosinophils/100 WBC (Bld) 3.3 % Normal . [facility] Comment on above: Performed By: #### C RP, ESR, CBC #### [address] Erythrocyte distribution width (RBC) [Ratio] 13.9 % Normal 11.9-15.3 [facility] Comment on above: Performed By: #### C RP, ESR, CBC #### [address] Hematocrit (Bld) [Volume fraction] 37.7 % Normal 34.0-46.4 [facility] Comment on above: Performed By: #### C RP, ESR, CBC #### [address] Hemoglobin (Bld) [Mass/Vol] 13.0 g/dL Normal 11.8-15.4 [facility] Comment on above: Performed By: #### C RP, ESR, CBC #### [address] Lymphocytes (Bld) [#/Vol] 1.9 10*3/uL Normal 1.00-4.8 [facility] Comment on above: Performed By: #### C RP, ESR, CBC #### [address] Lymphocytes/100 WBC (Bld) 28.7 % Normal . [facility] Comment on above: Performed By: #### C RP, ESR, CBC #### [address] MCH (RBC) [Entitic mass] 32.2 pg Normal 24.7-34.3 [facility] Comment on above: Performed By: #### C RP, ESR, CBC #### [address] MCV (RBC) [Entitic vol] 93.7 fL Normal 80-100 [facility] Comment on above: Performed By: #### C RP, ESR, CBC #### [address] Mean Corpuscular HGB Conc 34.3 g/dL Normal 32.0-35.0 [facility] Comment on above: Performed By: #### C RP, ESR, CBC #### [address] Monocytes (Bld) [#/Vol] 0.5 10*3/uL Normal 0.0-0.8 [facility] Comment on above: Performed By: #### C RP, ESR, CBC #### [address] Monocytes/100 WBC (Bld) 7.9 % Normal . [facility] Comment on above: Performed By: #### C RP, ESR, CBC #### [address] Neutrophils (Bld) [#/Vol] 3.9 10*3/uL Normal 1.8-7.7 [facility] Comment on above: Performed By: #### C RP, ESR, CBC #### [address] Neutrophils/100 WBC (Bld) 58.8 % Normal . [facility] Comment on above: Performed By: #### C RP, ESR, CBC #### [address] NRBC% 0.0 /100{WBC} Normal 0-0.5 [facility] Comment on above: Performed By: #### C RP, ESR, CBC #### [address] Platelet mean volume (Bld) [Entitic vol] 7.6 fL Normal 6.3-10.7 [facility] Comment on above: Performed By: #### C RP, ESR, CBC #### [address] Platelets (Bld) [#/Vol] 308 10*3/uL Normal 150-450 [facility] Comment on above: Performed By: #### C RP, ESR, CBC #### [address] RBC (Bld) [#/Vol] 4.03 10*6/uL Normal 3.60-5.00 [facility] Comment on above: Performed By: #### C RP, ESR, CBC #### [address] WBC (Bld) [#/Vol] 6.7 10*3/uL Normal 3.8-11.6 [facility] Comment on above: Performed By: #### C RP, ESR, CBC #### [address] Eosinophils Auto (Bld) [#/Vo l]Ordered By: Andres Estrella on 10-01-2024 Eosinophils (Bld) [#/Vol] Automated eosinophil count 0.0-0.45 [facility] Eosinophils/100 WBC Auto (Bl d)Ordered By: Andres Estrella on 10-01-2024 Eosinophils/100 WBC (Bld) Automated eosinophil % . [facility] Erythrocyte Sedimentation Ra susie 10-01-2024 ESR (Bld) [Velocity] 22 mm/h Normal 0-29 [facility] Comment on above: Result Comment: PERF ORMED BY: [address] [place] [address] PATHOLOGIST POLE INSPECTOR EILEEN MCCONNELL M.D. Performed By: #### C RP, ESR, CBC #### [address] Erythrocyte distribution wid th Auto (RBC) [Ratio]Ordered By: Andres Estrella on 10-01-2024 Erythrocyte distribution width (RBC) [Ratio] Erythrocyte distribution width [Ratio] by Automated count 11.9-15.3 [facility] Erythrocyte sedimentation ra te by Photometric methodOrdered By: Andres Estrella on 10-01-2024 ESR Photometric method (Bld) [Velocity] Erythrocyte sedimentation rate by Photometric method 0-29 [facility] Hematocrit Auto (Bld) [Volum e fraction]Ordered By: Andres Estrella on 10-01-2024 Hematocrit (Bld) [Volume fraction] Hematocrit [Volume Fraction] of Blood by Automated count 34.0-46.4 [facility] Hemoglobin [Mass/volume] in BloodOrdered By: Andres Estrella on 10-01-2024 Hemoglobin (Bld) [Mass/Vol] Hemoglobin [Mass/volume] in Blood 11.8-15.4 [facility] Leukocytes [#/volume] correc michaela for nucleated erythrocytes in Blood by Automated counOrdered By: Andres Estrella on 10-01-2024 WBC corrected for nucl RBC Auto (Bld) [#/Vol] Leukocytes [#/volume] corrected for nucleated erythrocytes in Blood by Automated coun 3.8-11.6 [facility] Lymphocytes Auto (Bld) [#/Vo l]Ordered By: Andres Estrella on 10-01-2024 Lymphocytes (Bld) [#/Vol] Lymphocytes [#/volume] in Blood by Automated count 1.00-4.8 [facility] Lymphocytes/100 WBC Auto (Bl d)Ordered By: Andres Estrella on 10-01-2024 Lymphocytes/100 WBC (Bld) Lymphocytes/100 leukocytes in Blood by Automated count . [facility] MCH Auto (RBC) [Entitic mass ]Ordered By: Andres Estrella on 10-01-2024 MCH (RBC) [Entitic mass] MCH [Entitic ma ss] by Automated count 24.7-34.3 [facility] MCHC Auto (RBC) [Mass/Vol]Or dered By: Andres Estrella on 10-01-2024 MCHC (RBC) [Mass/Vol] MCHC [Mass/volume] by Automated count 32.0-35.0 [facility] MCV Auto (RBC) [Entitic vol] Ordered By: Andres Estrella on 10-01-2024 MCV (RBC) [Entitic vol] MCV [Entitic vol ume] by Automated count 80-100 [facility] Monocytes Auto (Bld) [#/Vol] Ordered By: Andres Estrella on 10-01-2024 Monocytes (Bld) [#/Vol] Automated blood monocyte count 0.0-0.8 [facility] Monocytes/100 WBC Auto (Bld) Ordered By: Andres Estrella on 10-01-2024 Monocytes/100 WBC (Bld) Automated monocyte % . [facility] Neutrophils Auto (Bld) [#/Vo l]Ordered By: Andres Estrella on 10-01-2024 Neutrophils (Bld) [#/Vol] Neutrophils [#/volume] in Blood by Automated count 1.8-7.7 [facility] Neutrophils/100 WBC Auto (Bl d)Ordered By: Andres Estrella on 10-01-2024 Neutrophils/100 WBC (Bld) Automated neutrophil % . [facility] Nucleated erythrocytes [Pres ence] in Blood by Automated countOrdered By: Andres Estrella on 10-01-2024 Nucleated RBC Auto Ql (Bld) Nucleated erythrocytes [Presence] in Blood by Automated count 0-0.5 [facility] Platelet mean volume Auto (B ld) [Entitic vol]Ordered By: Andres Estrella on 10-01-2024 Platelet mean volume (Bld) [Entitic vol] Platelet mean volume [Entitic volume] in Blood by Automated count 6.3-10.7 [facility] Platelets Auto (Bld) [#/Vol] Ordered By: Andres Estrella on 10-01-2024 Platelets (Bld) [#/Vol] Platelets [#/vol ume] in Blood by Automated count 150-450 [facility] RBC Auto (Bld) [#/Vol]Ordere d By: Andres Estrella on 10-01-2024 RBC (Bld) [#/Vol] Erythrocytes [#/volume] in Blood by Automated count 3.60-5.00 [facility] WBC Auto (Bld) [#/Vol]Ordere d By: Andres Estrella on 10-01-2024 WBC (Bld) [#/Vol] Leukocytes [#/volume ] in Blood by Automated count 3.8-11.[address] [facility] [address] shoulder RT wo conon 11-2 CT shoulder RT wo con [facility] [place] [address] CT Scan Report Signed Patient: Emily Schmitt MR#: [id number] : 1955 Acct:[id number] Age/Sex: 69 / F ADM Date: 09/21/24 Loc: CT Room: Type: [facility] Attending Dr: Andres Estrella DO Copies to: [...] Brian Choe M.D.09/21/2024 2:47 PM Dictation Location: [place] [address] Transcribed By: [facility] 09/21/24 1447 Dictated By: Brian Choe II, MD 09/21/24 1443 Signed By: 09/21/24 1447 Normal [facility] X-ray reportOrdered By: Pina Hardy on 09-11-2024 Study report [facility] [address] [place] [address] XRay Report Signed Patient: Emily Schmitt MR#: [id number] : 1955 Acct:[id number] Age/Sex: 69 / F ADM Date: 4 Loc: [facility]XD Room: Type: REG CLI Attending Dr: Andres [...] Parul Hardy M.D.09/11/2024 3:36 PM Dictation Location: [place] [address] Transcribed By: [facility] 09/11/24 1536 Dictated By: Parul Hardy MD 09/11/24 153 Signed By: 09/11/[address] [facility] Work Phone: XR shoulder RT min 2V*on XR shoulder RT min 2V* [facility] [address] [place] [address] XRay Report Signed Patient: Emily Schmitt MR#: [id number] : 1955 Acct:[id number] Age/Sex: 69 / F ADM Date: 09/11/24 Loc: [facility] Room: Type: [facility] CLI Attending Dr: Andres Estrella DO Copies [...] Parul Hardy M.D.09/11/2024 3:36 PM Dictation Location: [place] [address] Transcribed By: [facility] 09/11/24 1536 Dictated By: Parul Hardy MD 09/11/24 1534 Signed By: 09/11/24 1536 Normal [facility] Laboratory - Chemistry and C hemistry - challengeon 09-04-2024 Glucose [Mass/Vol] 100 mg/dL 74-106 [facility] XR shoulder RT min 2V*on XR shoulder RT min 2V* [facility] [address] [place] [address] XRay Report Signed Patient: Emily Schmitt MR#: [id number] : 1955 Acct:[id number] Age/Sex: 69 / F ADM Date: 08/27/24 Loc: [facility] Room: Type: [facility] Attending Dr: Andres Estrella DO Copies to: [...] Brian Choe M.D.08/27/2024 11:58 PM Dictation Location: [facility] Transcribed By: [facility] 08/27/242357 Dictated By: Brian Choe II, MD 08/27/242357 Signed By: 08/27/242357 Normal [facility] XR shoulder RT min 2V*on XR shoulder RT min 2V* [facility] [place] [address] XRay Report Signed Patient: Emily Schmitt MR#: [id number] : 1955 Acct:[id number] Age/Sex: 69 / F ADM Date: 06/12/24 Loc: [facility] Room: Type: [facility] Attending Dr: Andres Estrella DO Copies to: [...] Carlos Silva M.D.06/12/2024 2:16 PM Dictation Location: [facility] Transcribed By: [facility] 06/12/241415 Dictated By: Carlos Silva DO 06/12/241411 Signed By: 06/12/241415 Normal [facility] XR shoulder RT min 2V*on XR shoulder RT min 2V* [facility] [place] [address] XRay Report Signed Patient: Emily Schmitt MR#: [id number] : 1955 Acct:[id number] Age/Sex: 69 / F ADM Date: 06/05/24 Loc: [facility] Room: Type: [facility] Attending Dr: Andres Estrella DO Copies to: [...] Parul Hardy M.D.06/05/2024 2:36 PM Dictation Location: [place] [address] Transcribed By: [facility] 06/05/24 1436 Dictated By: Parul Hardy MD 06/05/24 1435 Signed By: 06/05/24 1436 Normal [facility] 05-23-2024 L Specimen: [id number] Received: 05/23/24 Status: [place] Jose Num: [id number] Spec Type: Surgical Subm Dr: Andres Estrella DO Tissues: A Joint/Knee (RT SHOULDER) Procedures: HE/2, Gross/Micro L4, Decalcification Age/ Patient Sex Location Account Attending Physician Emily Schmitt 69/F [place] [id number] Andres Estrella DO SPEC NUM: [id number] RECD: 05/23/24 STATUS: [place] JOSE NUM: [id number] GERARDO: 05/23/24- SUBM DR: Andres Estrella DO ENTERED: 05/23/[address]: SPEC TYPE: Surgical DEPT: S ORDERED: [...] necrosis present. A gross photo is included. Flight Teacher sections are submitted in A1 (bone following decalcification) and A2 (soft tissue). CPT Codes 88691 BONE AND TISSUE -------- -------- Specimen: [id number] Received: 05/23/24 Status: [place] Jose Num: [id number] Spec Type: Surgical Subm Dr: Andres Estrella DO Tissues: A Joint/Knee (RT SHOULDER) Procedures: HE/2, Gross/Micro L4, Decalcification -------- Patient: Emily Schmitt [id number] (Continued) -------- Signed (signature on file) Eileen Mcconnell MD 05/24/24 1746 Normal [facility] XR shoulder RT 1Von 05-23-20 XR shoulder [place] 1[place] [address] XRay Report Signed Patient: Emily Schmitt MR#: [id number] : 1955 Acct:[id number] Age/Sex: 69 / F ADM Date: 05/23/24 Loc: [place] Room: Type: [facility] Attending Dr: Andres Estrella DO Copies [...] place. Impression dictated by: Jonny Fine Jr., Kasey05/23/2024 2:22 PM Dictation Location: [place] [address] Transcribed By: [facility] 05/23/241421 Dictated By: Jonny Fine Jr, DO 05/23/241421 Signed By: 05/23/24 142 Normal [facility] XR shoulder RT 1V [address] [address] XRay Report Signed Patient: Emily Schmitt MR#: [id number] : 1955 Acct:[id number] Age/Sex: 69 / F ADM Date: 05/23/24 Loc: [place] Room: Type: [facility] Attending Dr: Andres Estrella DO Copies [...] Fine Jr., D.OShanti05/23/2024 2:23 PM Dictation Location: [place] [address] Transcribed By: [facility] 05/23/24 1423 Dictated By: Jonny Fine Jr, DO 05/23/24 142 Signed By: 05/23/24 1423 Normal [facility] Alanine aminotransferase [En zymatic activity/volume] in Serum or PlasmaOrdered By: Andres Estrella on 05-08-2024 ALT [Catalytic activity/Vol] 29 U/L Normal 7-52 [facility] Comment on above: Performed By: #### C MP wRFX A1C, CBC, EBS A1C #### [facility] [address] Albumin [Mass/volume] in Ser um or Plasma by Bromocresol green (BCG) dye binding methoOrdered By: Andres Estrella on 05-08-2024 Albumin BCG dye [Mass/Vol] 4.8 g/dL 3.5-5.7 [facility] Alkaline phosphatase [Enzyma tic activity/volume] in Serum or PlasmaOrdered By: Andres Estrella on 05-08-2024 ALP [Catalytic activity/Vol] 49 U/L Normal 34-104 [facility] Comment on above: Result Comment: PERF ORMED BY: [place] [address] PATHOLOGIST POLE INSPECTOR HOSEA CARVALHO M.D. Performed By: #### C MP wRFX A1C, CBC, EBS A1C #### [facility] [address] [place] [address] Aspartate aminotransferase [ Enzymatic activity/volume] in Serum or PlasmaOrdered By: Andres Estrella on 05-08-2024 AST [Catalytic activity/Vol] 23 U/L Normal 13-39 [facility] Comment on above: Performed By: #### C MP wRFX A1C, CBC, EBS A1C #### [address] Automated basophil %Ordered By: Andres Estrella on 05-08-2024 Basophils/100 WBC (Bld) 1.2 % Normal . [facility] Comment on above: Performed By: #### C MP wRFX A1C, CBC, EBS A1C #### [address] Automated basophil countOrde red By: Andres Estrella on 05-08-2024 Basophils (Bld) [#/Vol] 0.1 10*3/uL Normal 0.0-0.2 [facility] Comment on above: Result Comment: PERF ORMED BY: [place] [address] PATHOLOGIST POLE INSPECTOR HOSEA CARVALHO M.D. Performed By: #### C MP wRFX A1C, CBC, EBS A1C #### [address] Automated blood monocyte cou ntOrdered By: Andres Estrella on 05-08-2024 Monocytes (Bld) [#/Vol] 0.7 10*3/uL Normal 0.0-0.8 [facility] Comment on above: Performed By: #### C MP wRFX A1C, CBC, EBS A1C #### [address] Automated eosinophil %Ordere d By: Andres Estrella on 05-08-2024 Eosinophils/100 WBC (Bld) 2.1 % Normal . [facility] Comment on above: Performed By: #### C MP wRFX A1C, CBC, EBS A1C #### [address] Automated eosinophil countOr dered By: Andres Estrella on 05-08-2024 Eosinophils (Bld) [#/Vol] 0.2 10*3/uL Normal 0.0-0.45 [facility] Comment on above: Performed By: #### C MP wRFX A1C, CBC, EBS A1C #### [facility] [address] Automated monocyte %Ordered By: Andres Estrella on 05-08-2024 Monocytes/100 WBC (Bld) 9.9 % Normal . [facility] Comment on above: Performed By: #### C MP wRFX A1C, CBC, EBS A1C #### [facility] [address] Automated neutrophil %Ordere d By: Andres Estrella on 05-08-2024 Neutrophils/100 WBC (Bld) 64.2 % Normal . [facility] Comment on above: Performed By: #### C MP wRFX A1C, CBC, EBS A1C #### [address] Bacteria [Presence] in Urine by AutomatedOrdered By: Andres Estrella on 05-08-2024 Bacteria Auto Ql (U) None seen [HPF] None Seen [facility] Bilirubin Test strip Ql (U)O rdered By: Andres Estrella on 05-08-2024 Bilirubin Ql (U) Negative Negative [facility] Bilirubin.total [Mass/volume ] in Serum or PlasmaOrdered By: Andres Estrella on 05-08-2024 Bilirubin [Mass/Vol] 0.4 mg/dL Normal 0.3-1.0 [facility] Comment on above: Performed By: #### C MP wRFX A1C, CBC, EBS A1C #### [facility] [address] CMP with reflex to A1Con Albumin [Mass/Vol] 4.8 g/dL Normal 3.5-5.7 [facility] Comment on above: Performed By: #### C MP wRFX A1C, CBC, EBS A1C #### [facility] [address] GFR/1.73 sq M.predicted MDRD (S/P/Bld) [Vol rate/Area] mL/min/{1.73_m2} Normal [facility] Comment on above: Performed By: #### C MP wRFX A1C, CBC, EBS A1C #### [place] [address] [place] Calcium [Mass/volume] in Ser um or PlasmaOrdered By: Andres Estrella on 05-08-2024 Calcium [Mass/Vol] 9.3 mg/dL Normal 8.6-10.3 [facility] Comment on above: Performed By: #### C MP wRFX A1C, CBC, EBS A1C #### [address] Carbon dioxide, total [Moles /volume] in Serum or PlasmaOrdered By: Andres Estrella on 05-08-2024 CO2 [Moles/Vol] 25.8 mmol/L Normal 21.0-31.0 [facility] Comment on above: Performed By: #### C MP wRFX A1C, CBC, EBS A1C #### [place] [address] [place] Chloride [Moles/volume] in S keyon or PlasmaOrdered By: Andres Estrella on 05-08-2024 Chloride [Moles/Vol] 101 mmol/L Normal 98-107 [facility] Comment on above: Performed By: #### C MP wRFX A1C, CBC, EBS A1C #### [address] Color of Urine by AutoOrdere d By: Andres Estrella on 05-08-2024 Color (U) Colorless Normal Yellow [facility] Comment on above: Order Comment: Name Collection Type:: Clean-Voided Midstream Performed By: #### A DDONUAPLUS #### [address] Complete Blood Count Auto Di ffon 05-08-2024 Mean Corpuscular HGB Conc 34.0 g/dL Normal 32.0-35.0 [facility] Comment on above: Performed By: #### C MP wRFX A1C, CBC, EBS A1C #### [facility] [address] NRBC% 0.0 /100{WBC} Normal 0-0.5 [facility] Comment on above: Performed By: #### C MP wRFX A1C, CBC, EBS A1C #### [facility] [facility] [address] Creatinine [Mass/volume] in Serum or PlasmaOrdered By: Andres Estrella on 05-08-2024 Creatinine [Mass/Vol] 0.77 mg/dL Normal 0.60-1.20 [facility] Comment on above: Performed By: #### C MP wRFX A1C, CBC, EBS A1C #### [facility] [address] Dipstick and Microscopicon 0 05-08-2024 Bacteria,Urine None Seen Normal None Seen [facility] Comment on above: Order Comment: Name Collection Type:: Clean-Voided Midstream Performed By: #### A DDONUAPLUS #### [place] [address] [place] Bilirubin,Urine Negative Normal Negative [facility] Comment on above: Order Comment: Name Collection Type:: Clean-Voided Midstream Performed By: #### A DDONUAPLUS #### [address] Glucose Ql (U) Normal Normal Normal [facility] Comment on above: Order Comment: Name Collection Type:: Clean-Voided Midstream Performed By: #### A DDONUAPLUS #### [facility] [address] [place] [address] [place] Hyaline Casts,Urine None Normal 0-8 [facility] Comment on above: Order Comment: Name Collection Type:: Clean-Voided Midstream Performed By: #### A DDONUAPLUS #### [place] [address] [place] Mucus,Urine Rare Normal [facility] Comment on above: Order Comment: Name Collection Type:: Clean-Voided Midstream Result Comment: PERF ORMED BY: [place] [address] PATHOLOGIST POLE INSPECTOR HOSEA CARVALHO M.D. Performed By: #### A DDONUAPLUS #### [place] [address] [place] Nitrite,Urine Negative Normal Negative [facility] Comment on above: Order Comment: Name Collection Type:: Clean-Voided Midstream Performed By: #### A DDONUAPLUS #### [address] Occult Blood,Urine Negative Normal Negative [facility] Comment on above: Order Comment: Name Collection Type:: Clean-Voided Midstream Result Comment: PERF ORMED BY: [place] [address] PATHOLOGIST POLE INSPECTOR HOSEA CARVALHO M.D. Performed By: #### A DDONUAPLUS #### [place] [address] [place] Protein,Urine Negative Normal Negative [facility] Comment on above: Order Comment: Name Collection Type:: Clean-Voided Midstream Performed By: #### A DDONUAPLUS #### [place] [address] [place] RBC,Urine 1-2 Normal 0-4 [facility] Comment on above: Order Comment: Name Collection Type:: Clean-Voided Midstream Performed By: #### A DDONUAPLUS #### [place] [address] [place] Specificy [place],Urine 1.007 Normal 1.001-1.030 [facility] Comment on above: Order Comment: Name Collection Type:: Clean-Voided Midstream Performed By: #### A DDONUAPLUS #### [place] [address] [place] Squamous Epithelial Cell,Urine 1-2 Normal 0-2 [facility] Comment on above: Order Comment: Name Collection Type:: Clean-Voided Midstream Performed By: #### A DDONUAPLUS #### [address] [address] [place] Urobilinogen,Urine Normal Normal Normal [facility] Comment on above: Order Comment: Name Collection Type:: Clean-Voided Midstream Performed By: #### A DDONUAPLUS #### [address] WBC,Urine 3-4 Normal 0-4 [facility] Comment on above: Order Comment: Name Collection Type:: Clean-Voided Midstream Performed By: #### A DDONUAPLUS #### [address] EBS A1C with Estimated Ave G luon 05-08-2024 Glucose [Mass/Vol] 126 mg/dL Normal [facility] Comment on above: Result Comment: PERF ORMED BY: [place] [address] PATHOLOGIST POLE INSPECTOR HOSEA CARVALHO M.D. Performed By: #### C MP wRFX A1C, CBC, EBS A1C #### [address] EBS A1C with Estimated Ave G luOrdered By: Andres Estrella on 05-08-2024 HbA1c (Bld) [Mass fraction] 6.0 % High 4.3-5.6 [facility] Comment on above: Increased risk for d iabetes: 5.7 - 6.4diabetes: >6.4glycemic control for adults with diabetes: <7.0 Result Comment: Incr eased risk for diabetes: 5.7 - 6.4 diabetes: >6.4 glycemic control for adults with diabetes: <7.0 Performed By: #### C MP wRFX A1C, CBC, EBS A1C #### [facility] [address] [place] [address] ECG 12 lead ECGon 05-08-2024 ECG 12 lead ECG [facility] [place] [address] [place] [address] Electrocardiograph Report Signed Patient: Emily Schmitt MR#: [id number] : 1955 Acct:[id number] Age/Sex: 69 / F ADM Date: 05/08/24 Loc: PS Room: Type: [facility] Attending Dr: Andres Estrella DO Ordering Provider: [...] previous ECGs available Confirmed by ISIDRO LOBATO [facility] Nelson ([id number]) on 05/08/2024 4:48:36 PM Referred By: Electronically Signed By: TARI FELIX MD [facility] Transcribed By: MUS Signed By Diego Felix MD 05/08/24 1648 Normal [facility] Epithelial cells.squamous [# /area] in Urine sediment by Automated countOrdered By: Andres Estrella on 05-08-2024 Epithelial cells.squamous Auto (Urine sed) [#/Area] 1-2 [HPF] 0-2 [facility] Erythrocyte distribution wid th [Ratio] by Automated countOrdered By: Andres Estrella on 05-08-2024 Erythrocyte distribution width (RBC) [Ratio] 13.6 % Normal 11.9-15.3 [facility] Comment on above: Performed By: #### C MP wRFX A1C, CBC, EBS A1C #### [facility] [address] [place] [address] Erythrocytes [#/area] in Uri ne sediment by Automated countOrdered By: Andres Etsrella on 05-08-2024 RBC Auto (Urine sed) [#/Area] 1-2 [HPF] 0-4 [facility] Erythrocytes [#/volume] in B lood by Automated countOrdered By: Andres Estrella on 05-08-2024 RBC (Bld) [#/Vol] 4.06 10*6/uL Normal 3.60-5.00 [facility] Comment on above: Performed By: #### C MP wRFX A1C, CBC, EBS A1C #### [facility] [address] Glucose [Mass/volume] in Ser um or PlasmaOrdered By: Andres Estrella on 05-08-2024 Glucose [Mass/Vol] 108 mg/dL High 70-100 [facility] Comment on above: ADA recommended refe rence range Result Comment: ADA recommended reference range Performed By: #### C MP wRFX A1C, CBC, EBS A1C #### [facility] [address] [place] [address] [place] Glucose [Mass/volume] in Uri ne by Test stripOrdered By: Andres Estrella on 05-08-2024 Glucose Test strip (U) [Mass/Vol] Normal mg/dL Normal [facility] Glucose mean value [Mass/vol ume] in Blood Estimated from glycated hemoglobinOrdered By: Andres Estrella on 05-08-2024 Average glucose Estimated from glycated hemoglobin (Bld) [Mass/Vol] 126 mg/dL [facility] Hematocrit [Volume Fraction] of Blood by Automated countOrdered By: Andres Estrella on 05-08-2024 Hematocrit (Bld) [Volume fraction] 39.4 % Normal 34.0-46.4 [facility] Comment on above: Performed By: #### C MP wRFX A1C, CBC, EBS A1C #### [address] Hemoglobin Test strip Ql (U) Ordered By: Andres Estrella on 05-08-2024 Hemoglobin Ql (U) Negative Negative [facility] Hemoglobin [Mass/volume] in BloodOrdered By: Andres Estrella on 05-08-2024 Hemoglobin (Bld) [Mass/Vol] 13.4 g/dL Normal 11.8-15.4 [facility] Comment on above: Performed By: #### C MP wRFX A1C, CBC, EBS A1C #### [facility] [address] [place] [address] [place] Hyaline casts [#/area] in Ur ine sediment by Automated countOrdered By: Andres Estrella on 05-08-2024 Hyaline casts Auto (Urine sed) [#/Area] None [LPF] 0-8 [facility] Ketones [Presence] in Urine by Test stripOrdered By: Andres Estrella on 05-08-2024 Ketones Ql (U) Negative Normal Negative [facility] Comment on above: Order Comment: Name Collection Type:: Clean-Voided Midstream Performed By: #### A DDONUAPLUS #### [address] Leukocyte esterase [Presence ] in Urine by Test stripOrdered By: Andres Estrella on 05-08-2024 Leukocyte esterase Test strip Ql (U) 1+ High Negative [facility] Comment on above: Order Comment: Name Collection Type:: Clean-Voided Midstream Performed By: #### A DDONUAPLUS #### [place] [address] [place] Leukocytes [#/area] in Urine sediment by Automated countOrdered By: Andres Estrella on 05-08-2024 WBC Auto (Urine sed) [#/Area] 3-4 [HPF] 0-4 [facility] Leukocytes [#/volume] correc michaela for nucleated erythrocytes in Blood by Automated counOrdered By: Andres Estrella on 05-08-2024 WBC corrected for nucl RBC Auto (Bld) [#/Vol] 7.3 10*3/uL 3.8-11.6 [facility] Leukocytes [#/volume] in Blo od by Automated countOrdered By: Andres Estrella on 05-08-2024 WBC (Bld) [#/Vol] 7.3 10*3/uL Normal 3.8-11.6 [facility] Comment on above: Performed By: #### C MP wRFX A1C, CBC, EBS A1C #### [place] [address] [place] Lymphocytes [#/volume] in Bl ood by Automated countOrdered By: nAdres Estrella on 05-08-2024 Lymphocytes (Bld) [#/Vol] 1.6 10*3/uL Normal 1.00-4.8 [facility] Comment on above: Performed By: #### C MP wRFX A1C, CBC, EBS A1C #### [address] Lymphocytes/100 leukocytes i n Blood by Automated countOrdered By: Andres Estrella on 05-08-2024 Lymphocytes/100 WBC (Bld) 22.6 % Normal . [facility] Comment on above: Performed By: #### C MP wRFX A1C, CBC, EBS A1C #### [address] MCH [Entitic mass] by Automa michaela countOrdered By: Andres Estrella on 05-08-2024 MCH (RBC) [Entitic mass] 33.0 pg Normal 24.7-34.3 [facility] Comment on above: Performed By: #### C MP wRFX A1C, CBC, EBS A1C #### [address] MCHC Auto (RBC) [Mass/Vol]Or dered By: Andres Estrella on 05-08-2024 MCHC (RBC) [Mass/Vol] 34.0 g/dL 32.0-35.0 [facility] MCV [Entitic volume] by Auto mated countOrdered By: Andres Estrella on 05-08-2024 MCV (RBC) [Entitic vol] 97.2 fL Normal 80-100 F [facility] Comment on above: Performed By: #### C MP wRFX A1C, CBC, EBS A1C #### [address] MRSA Cultureon 05-08-2024 MRSA Culture MRSA Culture Results No MRSA Isolated 2 Days PERFORMED BY: [place] [address] PATHOLOGIST POLE INSPECTOR HOSEA CARVALHO M.D. Normal [facility] Comment on above: Performed By: #### C UMRSA #### [address] Mucus [Presence] in Urine by AutomatedOrdered By: Andres Estrella on 05-08-2024 Mucus Auto Ql (U) Rare [LPF] [facility] Neutrophils [#/volume] in Bl ood by Automated countOrdered By: Andres Estrella on 05-08-2024 Neutrophils (Bld) [#/Vol] 4.7 10*3/uL Normal 1.8-7.7 [facility] Comment on above: Performed By: #### C MP wRFX A1C, CBC, EBS A1C #### [facility] [address] Nitrite Test strip Ql (U)Ord ered By: Andres Estrella on 05-08-2024 Nitrite Ql (U) Negative Negative [facility] No Panel InformationOrdered By: Andres Estrella on 05-08-2024 Estimated GFR (CKD-EPI) > 60.0 mL/Min [facility] Creatinine Clearance (Chem N/A [facility] Nucleated erythrocytes [Pres ence] in Blood by Automated countOrdered By: Andres Estrella on 05-08-2024 Nucleated RBC Auto Ql (Bld) 0.0 /100{WBC} 0-0.5 [facility] Platelet mean volume [Entiti c volume] in Blood by Automated countOrdered By: Andres Estrella on 05-08-2024 Platelet mean volume (Bld) [Entitic vol] 7.7 fL Normal 6.3-10.7 [facility] Comment on above: Performed By: #### C MP wRFX A1C, CBC, EBS A1C #### [facility] [address] [place] [address] [place] Platelets [#/volume] in Bloo d by Automated countOrdered By: Andres Estrella on 05-08-2024 Platelets (Bld) [#/Vol] 296 10*3/uL Normal 150-450 [facility] Comment on above: Performed By: #### C MP wRFX A1C, CBC, EBS A1C #### [facility] [address] [place] [address] [place] Potassium [Moles/volume] in Serum or PlasmaOrdered By: Andres Estrella on 05-08-2024 Potassium [Moles/Vol] 4.2 mmol/L Normal 3.5-5.1 [facility] Comment on above: Performed By: #### C MP wRFX A1C, CBC, EBS A1C #### [facility] [address] Protein Test strip (U) [Mass /Vol]Ordered By: Andres Estrella on 05-08-2024 Protein (U) [Mass/Vol] Negative Negative [facility] Protein [Mass/volume] in Ser um or PlasmaOrdered By: Andres Estrella on 05-08-2024 Protein [Mass/Vol] 7.3 g/dL Normal 6.4-8.9 [facility] Comment on above: Performed By: #### C MP wRFX A1C, CBC, EBS A1C #### [address] Serum globulin measurement b y calculation (mass/volume)Ordered By: Andres Estrella on 05-08-2024 Globulin (S) [Mass/Vol] 2.5 g/dL Normal [facility] Comment on above: Performed By: #### C MP wRFX A1C, CBC, EBS A1C #### [address] Serum or plasma albumin/glob ulin mass ratioOrdered By: Andres Estrella on 05-08-2024 Albumin/Globulin [Mass ratio] 1.9 {ratio} Normal [facility] Comment on above: Performed By: #### C MP wRFX A1C, CBC, EBS A1C #### [facility] [address] [place] [address] Serum or plasma anion gap de terminationOrdered By: Andres Estrella on 05-08-2024 Anion gap [Moles/Vol] 13.4 mmol/L Normal 6.0-15.0 [facility] Comment on above: Performed By: #### C MP wRFX A1C, CBC, EBS A1C #### [facility] [address] [place] [address] Sodium [Moles/volume] in Ser um or PlasmaOrdered By: Andres Estrella on 05-08-2024 Sodium [Moles/Vol] 136 mmol/L Normal 136-145 [facility] Comment on above: Performed By: #### C MP wRFX A1C, CBC, EBS A1C #### [facility] [address] Specific gravity Test strip (U) [Rel density]Ordered By: Andres Estrella on 05-08-2024 Specific gravity (U) [Rel density] 1.007 1.001-1.030 [facility] Urea nitrogen [Mass/volume] in Serum or PlasmaOrdered By: Andres Estrella on 05-08-2024 Urea nitrogen [Mass/Vol] 16 mg/dL Normal 7-25 [facility] Comment on above: Performed By: #### C MP wRFX A1C, CBC, EBS A1C #### [facility] [address] Urine appearanceOrdered By: Andres Estrella on 05-08-2024 Appearance (U) Clear Normal Clear [facility] Comment on above: Order Comment: Name Collection Type:: Clean-Voided Midstream Performed By: #### A DDONUAPLUS #### [address] Urobilinogen Test strip (U) [Mass/Vol]Ordered By: Andres Estrella on 05-08-2024 Urobilinogen (U) [Mass/Vol] Normal mg/dL Normal [facility] Wound methicillin resistant Staphylococcus aureus (MRSA) cultureOrdered By: Andres Estrella on 05-08-2024 MRSA isol Org specific cx Ql (Unsp spec) [facility] pH of Urine by Test stripOrd ered By: Andres Estrella on 05-08-2024 pH (U) 5.0 [pH] Normal 5.0-9.0 [facility] Comment on above: Order Comment: Name Collection Type:: Clean-Voided Midstream Performed By: #### A DDONUAPLUS #### [address] shoulder RT wo conon CT shoulder RT wo con [facility] [place] [address] [place] [address] CT Scan Report Signed Patient: Emily Schmitt MR#: [id number] : 1955 Acct:[id number] Age/Sex: 68 / F ADM Date: 03/28/24 Loc: CT Room: Type: [facility] Attending Dr: Andres Estrella DO Copies to: [...] Carlos Silva M.D.03/28/2024 5:55 PM Dictation Location: [place] [address] Transcribed By: [facility] 03/28/241754 Dictated By: Carlos Silva DO 03/28/24 1738 Signed By: 03/28/24 175 Normal [facility] CBC AUTO DIFFon 10-22-2022 BASO # 0.1 103/ul Normal 0.0-0.1 [facility] Comment on above: Performed By: #### C BC #### [facility] [address] [place] [address] Dr. Shea Howell Basophils/100 WBC (Bld) 1.0 % Normal 0.2-2.0 [facility] [place] Comment on above: Performed By: #### C BC #### [facility] [address] [place] [address] Dr. Shea Howell EO # 0.1 103/ul Normal 0.0-0.7 [facility] Comment on above: Performed By: #### C BC #### [facility] [address] [place] [address] Dr. Shea Howell Eosinophils/100 WBC (Bld) 1.2 % Normal 0.9-7.0 [facility] Comment on above: Performed By: #### C BC #### [facility] [address] [place] [address] Dr. Shea Howell Erythrocyte distribution width (RBC) [Ratio] 13.5 % Normal 11.0-15.0 [facility] Comment on above: Performed By: #### C BC #### [facility] [address] [place] [address] Dr. Shea Howell Hematocrit (Bld) [Volume fraction] 41.3 % Normal 36.0-48.0 [facility] Comment on above: Performed By: #### C BC #### [facility] [address] [place] [address] Dr. Shea Howell Hemoglobin (Bld) [Mass/Vol] 13.9 g/dL Normal 12.0-16.0 [facility] Comment on above: Performed By: #### C BC #### [facility] [address] [place] [address] Dr. Shea Howell IG # 0.02 10e3/ul Normal 0.00-0.03 [facility] Comment on above: Performed By: #### C BC #### [facility] [address] [place] [address] Dr. Shea Howell IG % 0.2 % Normal 0.0-0.5 [facility] Comment on above: Performed By: #### C BC #### [facility] [address] [place] [address] Dr. Shea Howell LYMPH # 1.8 103/ul Normal 1.2-3.8 [facility] Comment on above: Performed By: #### C BC #### [facility] [address] [place] [address] Dr. Shea Howell Lymphocytes/100 WBC (Bld) 21.4 % Normal 20.5-60.0 [facility] Comment on above: Performed By: #### C BC #### [facility] [address] [place] [address] Dr. Shea Howell MANUAL DIFF REQ NO Normal [facility] Comment on above: Performed By: #### C BC #### [facility] [address] [place] [address] Dr. Shea Howell MCH (RBC) [Entitic mass] 33.2 pg Normal 26.7-34.0 [facility] Comment on above: Performed By: #### C BC #### [facility] [address] [place] [address] Dr. Shea Howell MCHC (RBC) [Mass/Vol] 33.7 g/dL Normal 29.9-35.2 [facility] Comment on above: Performed By: #### C BC #### [facility] [address] [place] [address] Dr. Shea Howell MCV (RBC) [Entitic vol] 98.6 fL Normal 81.0-99.0 [facility] Comment on above: Performed By: #### C BC #### [facility] [address] [place] [address] Dr. Shea Howell MONO # 0.8 103/ul Normal 0.3-0.8 [facility] Comment on above: Performed By: #### C BC #### [facility] [address] [place] [address] Dr. Shea Howell Monocytes/100 WBC (Bld) 9.3 % Normal 1.7-12.0 [facility] Comment on above: Performed By: #### C BC #### [facility] [address] [place] [address] Dr. Shea Howell NEUT # 5.6 103/ul Normal 1.4-6.5 [facility] Comment on above: Performed By: #### C BC #### [facility] [address] [address] [address] Shea Howell Neutrophils/100 WBC (Bld) 66.9 % Normal 43.0-75.0 [facility] Comment on above: Performed By: #### C BC #### [facility] [address] [place] [address] [address] Shea Howell Platelet mean volume (Bld) [Entitic vol] 9.2 fL Critically low 9.5-13.5 [facility] Comment on above: Performed By: #### C BC #### [facility] [address] [place] [place] [address] [address] Shea Howell PLT 353 103/ul Normal 150-450 [facility] Comment on above: Performed By: #### C BC #### [facility] [address] [place] [address] [address] Shea Howell RBC 4.19 106/ul Critically low 4.20-5.40 [facility] Comment on above: Performed By: #### C BC #### [facility] [address] [place] [place] [address] [address] Shea Howell WBC 8.4 103/ul Normal 4.0-11.0 [facility] Comment on above: Performed By: #### C BC #### [facility] [address] [place] [place] [address] [address] Shea Howell LIPID PROFILEon 10-22-2022 CHOL-HDL RATIO NORM SEE BELOW Normal [facility] Comment on above: Result Comment: 3.3 - 4.4 LOW RISK 4.4 - 7.1 AVERAGE RISK 7.1 - 11.0 MODERATE RISK >11.0 HIGH RISK Performed By: #### B MP, LIPID #### [facility] [address] [place] [address] [address] Shea Howell Cholesterol [Mass/Vol] 224 mg/dL Critically high <=200 [facility] Comment on above: Performed By: #### B MP, LIPID #### [facility] [address] [place] [address] [address] Shea Howell Cholesterol in HDL [Mass/Vol] 78 mg/dL Critically high 40-60 [facility] Comment on above: Performed By: #### B MP, LIPID #### [facility] [address] [place] [address] [address] Shea Howell Cholesterol in LDL [Mass/Vol] 109.8 mg/dL Normal [facility] Comment on above: Performed By: #### B MP, LIPID #### [facility] [address] [place] [address] [address] Shea Howell Cholesterol.total/Choles terol in HDL [Mass ratio] 2.9 {ratio} Normal [facility] Comment on above: Performed By: #### B MP, LIPID #### [facility] [address] [place] [address] Dr. Shea Howell HDL NORMAL > or = 60 mg/dl - LO W CARDIOVASCULAR RISK <40 mg/dl - HIGH CARDIOVASCULAR RISK Normal [facility] Comment on above: Performed By: #### B MP, LIPID #### [facility] [address] [place] [address] Dr. Shea Howell LDL CALC NORMAL SEE BELOW Normal [facility] Comment on above: Result Comment: <100 mg/dl OPTIMAL 100 - 129 mg/dl NEAR OR ABOVE OPTIMAL 130 - 159 mg/dl BORDERLINE HIGH 160 - 189 mg/dl HIGH >190 mg/dl VERY HIGH Performed By: #### B MP, LIPID #### [facility] [address] [place] [address] Dr. Shea Howell Triglyceride [Mass/Vol] 181 mg/dL Critically high <=150 [facility] Comment on above: Performed By: #### B MP, LIPID #### [facility] [address] [place] [address] Dr. Shea Howell VLDL CALC 36.2 mg/dL Normal [facility] Comment on above: Performed By: #### B MP, LIPID #### [facility] [address] [place] [address] Dr. Shea Howell PROF CHEM 8 (BAS METB)on Anion gap [Moles/Vol] 14.7 mmol/L Normal [facility] Comment on above: Performed By: #### B MP, LIPID #### [facility] [address] [place] [address] [address] Shea Howell Calcium [Mass/Vol] 9.4 mg/dL Normal 8.5-10.1 [facility] Comment on above: Performed By: #### B MP, LIPID #### [facility] [address] [place] [address] [address] Shea Howell Chloride [Moles/Vol] 95 mmol/L Critically low 98-107 [facility] Comment on above: Performed By: #### B MP, LIPID #### [facility] [address] [place] [address] [address] Shea Howell CO2 [Moles/Vol] 27.8 mmol/L Normal 21.0-32.0 [facility] Comment on above: Performed By: #### B MP, LIPID #### [facility] [address] [place] [address] Dr. Shea Howell Creatinine [Mass/Vol] 0.77 mg/dL Normal 0.55-1.02 [facility] Comment on above: Performed By: #### B MP, LIPID #### [facility] [address] [place] [address] Dr. Shea Howell EGFR-AF [place] >60 Normal >=60 [facility] Comment on above: Performed By: #### B MP, LIPID #### [facility] [address] [place] [address] Dr. Shea Howell EGFR-NON AF [place] >60 Normal >=60 [facility] Comment on above: Performed By: #### B MP, LIPID #### [facility] [address] [place] [address] Dr. Shea Howell Glucose [Mass/Vol] 111 mg/dL Critically high 74-106 [facility] Comment on above: Performed By: #### B MP, LIPID #### [facility] [address] [place] [address] Dr. Shea Howell Potassium [Moles/Vol] 4.5 mmol/L Normal 3.5-5.1 [facility] Comment on above: Performed By: #### B MP, LIPID #### [facility] [address] [place], [place] [address] Dr. Shea Howell Sodium [Moles/Vol] 133 mmol/L Critically low 136-145 [facility] Comment on above: Performed By: #### B MP, LIPID #### [facility] [address] [place], [place] [address] Dr. Shea Howell Urea nitrogen [Mass/Vol] 10.0 mg/dL Normal 7.0-18.0 [facility] Comment on above: Performed By: #### B MP, LIPID #### [facility] [address] [place], [place] [address] Dr. Shea Howell Urea nitrogen/Creatinine [Mass ratio] 13.0 mg/mg Normal [facility] Comment on above: Performed By: #### B MP, LIPID #### [facility] [address] [place], [place] [address] Dr. Shea Howell MG MAMM SCREEN 3D IRMA CADon 10-21-2022 MG MAMM SCREEN 3D IRMA CAD Patient: EMILY SCHMITT Exam Date: 10/21/2022 : 1955 Gender:F Ordering : DR TIRSO BARNEY D.O. Admission #: [id number] Family : Order #: [id number] CLICK HERE TO VIEW EXAM RADIOLOGY REPORT [...] bladder cancer at age 59. LOCATION: [facility] BREAST COMPOSITION: Scattered areas fibroglandular density. [...] MD on 10/22/2022 at 07:14 Approved by: Jaonn Beckford MD on 10/22/2022 at 07:16 Normal [facility] XR FOOT RT MIN 3 [...] by: GURPREET KIM Date: 2022-10-06 18:26 Normal [facility] MRI LSPINE WO CONon 05-07-20 [...] JOANN BECKFORD Date: 2022-05-06 22:24 Normal [facility] XR LSPINE 2_3 VIEWSon 2021 XR LSPINE [...] by: MAURILIO MENDEZ Date: 2022-03-16 15:35 Normal [facility] PROGRESSon 10-31-2018 Protein mass conc HNO ID: [id number]: Jayda Meyer [facility] Hospitalervice: (none)Author Type: (none)Type: Progress NotesFiled: 10/31/2018 4:23 PMNote Text:Came as the Caregiver for the Maheshn JHO Study [id number] IRB 18-570.Details of study are under her 's chart. Normal [facility] Vital Signs Date Time Vital Sign Value Performing Clinician Facility 02-27-2025 14:040400 Body height 160.02 cm [employer] Work Phone: [facility] 02-27-2025 14:04-0400 Body mass index (BMI) [Ratio] 42.9 kg/m2 [employer] DO Work Phone: [facility] 02-27-2025 14:04040 Body weight 109.82 kg [employer] DO Work Phone: [facility] 02-27-2025 14:04-040 Diastolic blood pressure 91 mm[Hg] [employer] DO Work Phone: [facility] 02-27-2025 14:04-0400 Heart rate 120 /min [employer] Work Phone: [facility] 02-27-2025 14:04-0400 Respiratory rate 12 /min Tirso Ball DO Work Phone: [facility] 02-27-2025 14:04-0400 Systolic blood pressure 159 mm[Hg] Tirso Ball DO Work Phone: [facility] 11-05-2024 14:24-0500 Body height 160.02 cm Tirso Ball DO Work Phone: [facility] 11-05-2024 14:24-0500 Body mass index (BMI) [Ratio] 42 kg/m2 Tirso Ball DO Work Phone: [facility] 11-05-2024 14:24-0500 Body weight 107.5 kg Tirso Ball DO Work Phone: [facility] 10-30-2024 13:35-0500 Body height 160.02 cm Tirso Ball DO Work Phone: [facility] 10-30-2024 13:35-0500 Body mass index (BMI) [Ratio] 42 kg/m2 Tirso Ball DO Work Phone: [facility] 10-30-2024 13:35-0500 Body weight 107.5 kg Tirso Ball DO Work Phone: [facility] 10-30-2024 13:35-0500 Diastolic blood pressure 73 mm[Hg] Tirso Ball DO Work Phone: [facility] 10-30-2024 13:35-0500 Heart rate 91 /min Tirso Ball DO Work Phone: [facility] 10-30-2024 13:35-0500 Respiratory rate 12 /min Tirso Ball DO Work Phone: [facility] 10-30-2024 13:35-0500 Systolic blood pressure 128 mm[Hg] Tirso Ball DO Work Phone: [facility] 06-29-2024 13:25-0400 Body height 160.02 cm DO Tirso Ball Work Phone: [facility] 06-29-2024 13:25-0400 Body mass index (BMI) [Ratio] 41.1 kg/m2 DO Tirso Ball Work Phone: [facility] 06-29-2024 13:25-0400 Body weight 105.34 kg DO Tirso Ball Work Phone: [facility] 06-29-2024 13:25-0400 Diastolic blood pressure 85 mm[Hg] DO Tirso Ball Work Phone: [facility] 06-29-2024 13:25-0400 Heart rate 84 /min DO Tirso Ball Work Phone: [facility] 06-29-2024 13:25-0400 Respiratory rate 12 /min DO Tirso Ball Work Phone: [facility] 06-29-2024 13:25-0400 Systolic blood pressure 134 mm[Hg] DO Tirso Ball Work Phone: [facility] 05-23-2024 10:45-0400 Diastolic blood pressure 53 mm[Hg] DO Tirso Ball Work Phone: [facility] 05-23-2024 10:45-0400 Heart rate 101 /min DO Tirso Ball Work Phone: [facility] 05-23-2024 10:45-0400 Respiratory rate 16 /min DO Tirso Ball Work Phone: [facility] 05-23-2024 10:45-0400 SaO2% (BldA) [Mass fraction] 93 % DO Tirso Ball Work Phone: [facility] 05-23-2024 10:45-0400 Systolic blood pressure 96 mm[Hg] DO Tirso Ball Work Phone: [facility] 05-23-2024 10:05-0400 Body temperature 98 [degF] DO Tirso Ball Work Phone: [facility] 05-23-2024 09:40-0400 Inhaled oxygen flow rate 8 L/min DO Tirso Ball Work Phone: [facility] 05-23-2024 06:46-0400 Body height 160.02 cm DO Tirso Ball Work Phone: [facility] 05-23-2024 06:46-0400 Body mass index (BMI) [Ratio] 41.3 kg/m2 DO Tirso Ball Work Phone: [facility] 05-23-2024 06:46-0400 Body weight 106 kg DO Tirso Ball Work Phone: [facility] 05-14-2024 15:11-0400 Body height 160.02 cm DO Tirso Ball Work Phone: [facility] 05-14-2024 15:11-0400 Body mass index (BMI) [Ratio] 42 kg/m2 DO Tirso Ball Work Phone: [facility] 05-14-2024 15:11-0400 Body weight 107.55 kg DO Tirso Ball Work Phone: [facility] 05-14-2024 15:11-0400 Diastolic blood pressure 78 mm[Hg] DO Tirso Ball Work Phone: [facility] 05-14-2024 15:11-0400 Heart rate 89 /min DO Tirso Ball Work Phone: [facility] 05-14-2024 15:11-0400 Respiratory rate 12 /min DO Tirso Ball Work Phone: [facility] 05-14-2024 15:11-0400 Systolic blood pressure 120 mm[Hg] DO Tirso Ball Work Phone: [facility] 03-27-2024 13:35-0400 Body height 160.02 cm DO Tirso Ball Work Phone: [facility] 03-27-2024 13:35-0400 Body mass index (BMI) [Ratio] 40.9 kg/m2 DO Tirso Ball Work Phone: [facility] 03-27-2024 13:35-0400 Body weight 104.83 kg DO Tirso Ball Work Phone: [facility] 03-27-2024 13:35-0400 Diastolic blood pressure 73 mm[Hg] DO Tirso Ball Work Phone: [facility] 03-27-2024 13:35-0400 Heart rate 92 /min DO Tirso Ball Work Phone: [facility] 03-27-2024 13:35-0400 Respiratory rate 16 /min DO Tirso Ball Work Phone: [facility] 03-27-2024 13:35-0400 Systolic blood pressure 107 mm[Hg] DO Tirso Ball Work Phone: [facility] 02-23-2024 14:13-0400 Body height 160.02 cm DO Tirso Ball Work Phone: [facility] 02-23-2024 14:13-0400 Body mass index (BMI) [Ratio] 39.8 kg/m2 DO Tirso Ball Work Phone: [facility] 02-23-2024 14:13-0400 Body weight 102.05 kg DO Tirso Ball Work Phone: [facility] 01-31-2024 10:20-0400 Body height 160.02 cm DO Tirso Ball Work Phone: [facility] 01-31-2024 10:20-0400 Body mass index (BMI) [Ratio] 39.8 kg/m2 DO Tirso Ball Work Phone: [facility] 01-31-2024 10:20-0400 Body weight 102.05 kg DO Tirso Ball Work Phone: [facility] 01-03-2024 15:02-0400 Body height 160.02 cm DO Tirso Ball Work Phone: [facility] 01-03-2024 15:02-0400 Body mass index (BMI) [Ratio] 40.2 kg/m2 DO Tirso Ball Work Phone: [facility] 01-03-2024 15:02-0400 Body weight 103.02 kg DO Tirso Ball Work Phone: [facility] 01-03-2024 15:02-0400 Diastolic blood pressure 73 mm[Hg] DO Tirso Ball Work Phone: [facility] 01-03-2024 15:02-0400 Heart rate 96 /min DO Tirso Ball Work Phone: [facility] 01-03-2024 15:02-0400 Systolic blood pressure 116 mm[Hg] DO Tirso Ball Work Phone: [facility] 11-01-2023 13:30-0500 Body height 160.02 cm Tirso Ball Other [facility] [employer] Other 11-01-2023 13:30-0500 Body mass index (BMI) [Ratio] 39.36 kg/m2 Tirso Ball Other [facility] [employer] Other 11-01-2023 13:30-0500 Body weight 100.79 kg Tirso Ball Other [facility] [employer] Other 11-01-2023 13:30-0500 Diastolic blood pressure 75 mm[Hg] Tirso Ball Other [employer] Other 11-01-2023 13:30-0500 Respiratory rate 12 /min Tirso Ball Other [employer] Other 11-01-2023 13:30-0500 Systolic blood pressure 112 mm[Hg] Tirso Ball Other [employer] Other 09-12-2023 10:12-0500 Body height 160.02 cm Tirso Ball Other [employer] Other 09-12-2023 10:12-0500 Body mass index (BMI) [Ratio] 39.32 kg/m2 Tirso Ball Other [employer] Other 09-12-2023 10:12-0500 Body weight 100.7 kg Tirso Ball Other [employer] Other 09-12-2023 10:12-0500 Diastolic blood pressure 80 mm[Hg] Tirso Ball Other [employer] Other 09-12-2023 10:12-0500 Systolic blood pressure 129 mm[Hg] Tirso Ball Other [employer] Other 08-04-2023 12:23-0400 Body height 160.02 cm Tirso Ball Other [employer] Other 08-04-2023 12:23-0400 Body mass index (BMI) [Ratio] 39.5 kg/m2 Tirso Ball Other [employer] Other 08-04-2023 12:23-0400 Body weight 101.15 kg Tirso Ball Other [employer] Other 08-04-2023 12:23-0400 Diastolic blood pressure 54 mm[Hg] Tirso Ball Other [employer] Other 08-04-2023 12:23-0400 Systolic blood pressure 98 mm[Hg] Tirso Ball Other [employer] Other 07-15-2023 14:30-0400 Body height 160.02 cm Tirso Ball Other [employer] Other 07-15-2023 14:30-0400 Body mass index (BMI) [Ratio] 40.03 kg/m2 Tirso Ball Other [employer] Other 07-15-2023 14:30-0400 Body weight 102.51 kg Tirso Ball Other [employer] Other 07-15-2023 14:30-0400 Diastolic blood pressure 79 mm[Hg] Tirso Ball Other [employer] Other 07-15-2023 14:30-0400 Respiratory rate 12 /min Tirso Ball Other [employer] Other 07-15-2023 14:30-0400 Systolic blood pressure 116 mm[Hg] Tirso Ball Other [employer] Other 04-13-2023 14:45-0400 Body height 160.02 cm Tirso Ball Other [employer] Other 04-13-2023 14:45-0400 Body mass index (BMI) [Ratio] 42.76 kg/m2 Tirso Ball Other [employer] Other 04-13-2023 14:45-0400 Body weight 109.5 kg Tirso Ball Other [employer] Other 04-13-2023 14:45-0400 Diastolic blood pressure 76 mm[Hg] Tirso Ball Other [employer] Other 04-13-2023 14:45-0400 Respiratory rate 12 /min Tirso Ball Other [employer] Other 04-13-2023 14:45-0400 Systolic blood pressure 118 mm[Hg] Tirso Ball Other [employer] Other 01-11-2023 15:00-0400 Body height 160.02 cm Tirso Ball Other [employer] Other 01-11-2023 15:00-0400 Body mass index (BMI) [Ratio] 45.02 kg/m2 Tirso Ball Other [employer] Other 01-11-2023 15:00-0400 Body weight 115.31 kg Tirso Ball Other [employer] Other 01-11-2023 15:00-0400 Diastolic blood pressure 76 mm[Hg] Tirso Ball Other [employer] Other 01-11-2023 15:00-0400 Respiratory rate 12 /min Tirso Ball Other [employer] Other 01-11-2023 15:00-0400 Systolic blood pressure 122 mm[Hg] Tirso Ball Other [employer] Other 08-19-2022 12:20-0400 Body height 160.02 cm Lloyd Walsh Other [employer] Other 08-19-2022 12:20-0400 Body mass index (BMI) [Ratio] 42.16 kg/m2 Lloyd Walsh Other [employer] Other 08-19-2022 12:20-0400 Body weight 107.96 kg Lloyd Walsh Other [employer] Other 07-13-2022 17:00-0400 Body height 160.02 cm Gerson Ochoa Other [employer] Other 07-13-2022 17:00-0400 Body mass index (BMI) [Ratio] 42.16 kg/m2 Gerson Ochoa Other [employer] Other 07-13-2022 17:00-0400 Body weight 107.96 kg Gerson Ochoa Other [employer] Other Encounters Encounter Date Encounter Type Care Provider Facility Start: 02-27-2025 End: 02-27-2025 ambulatory Tirso Ball DO Work Phone: [facility] Work Phone: Start: 02-27-2025 End: 02-27-2025 Patient encounter procedure Tirso Ball DO Work Phone: [facility] Work Phone: Start: 12-03-2024 End: 12-03-2024 ambulatory Tirso Ball DO Work Phone: [facility] Work Phone: Start: 12-03-2024 End: 12-03-2024 Discharged Recurring Tirso Ball DO Work Phone: [facility] [place] Start: 11-05-2024 End: 11-05-2024 ambulatory Tirso Ball DO Work Phone: [facility] Work Phone: Start: 11-05-2024 End: 11-05-2024 Patient encounter procedure Tirso Ball DO Work Phone: [facility] Work Phone: Start: 11-05-2024 Non-patient / Non-visit Benjam in Ball DO Work Phone: [facility] Work Phone: Start: 11-05-2024 End: 11-05-2024 Patient encounter procedure Tirso Ball DO Work Phone: [facility] Start: 11-05-2024 End: 11-05-2024 ambulatory Tirso Ball DO Work Phone: [facility] Work Phone: Start: 10-30-2024 End: 10-30-2024 ambulatory Tirso Ball DO Work Phone: [facility] Work Phone: Start: 10-30-2024 End: 10-30-2024 Patient encounter procedure Tirso Ball DO Work Phone: [facility] Work Phone: Start: 10-28-2024 Patient encounter procedure Tirso Ball DO Work Phone: [facility] Start: 10-01-2024 End: 10-01-2024 ambulatory Tirso Ball Facility:[facility] Start: 10-01-2024 End: 10-01-2024 Patient encounter procedure Triso Ball DO Work Phone: [facility] [place] Work Phone: Start: 09-21-2024 End: 09-21-2024 Patient encounter procedure Tirso Ball DO Work Phone: [facility] [place] Work Phone: Start: 09-21-2024 End: 09-21-2024 ambulatory Tirso Ector Facility:[facility] Start: 09-11-2024 End: 09-11-2024 Patient encounter procedure Tirso Ball DO Work Phone: [facility] Work Phone: Start: 09-11-2024 End: 09-11-2024 ambulatory Tirso Ball DO Work Phone: [facility] Work Phone: Start: 09-04-2024 Non-patient / Non-visit Benjam in Ball DO Work Phone: [facility] Work Phone: Start: 08-27-2024 End: 08-27-2024 ambulatory DO Tirso Ball Work Phone: [facility] Work Phone: Start: 08-27-2024 End: 08-27-2024 Patient encounter procedure DO Tirso Ball Work Phone: [facility] Work Phone: Start: 08-20-2024 End: 08-20-2024 ambulatory Tirso Ball DO Work Phone: [facility] Work Phone: Start: 08-20-2024 End: 08-20-2024 Discharged Recurring Tirso Ball DO Work Phone: [facility] [place] Start: 08-20-2024 Registered Recurring DO Benjam in Ball Work Phone: [facility] [place] Start: 07-17-2024 End: 07-17-2024 Patient encounter procedure DO Tirso Ball Work Phone: [facility] Work Phone: Start: 06-29-2024 End: 06-29-2024 Patient encounter procedure DO Tirso Ball Work Phone: [facility] Work Phone: Start: 06-19-2024 End: 06-19-2024 Patient encounter procedure DO Tirso Ball Work Phone: [facility] Work Phone: Start: 06-12-2024 End: 06-12-2024 ambulatory DO Tirso Ball Work Phone: [facility] Work Phone: Start: 06-12-2024 End: 06-12-2024 Patient encounter procedure DO Tirso Ball Work Phone: [facility] Work Phone: Start: 06-05-2024 End: 06-05-2024 Patient encounter procedure DO Tirso Ball Work Phone: [facility] Work Phone: Start: 06-05-2024 End: 06-05-2024 Patient encounter procedure DO Tirso Ball Work Phone: [facility] Start: 06-05-2024 End: 06-05-2024 ambulatory DO Tirso Ball Work Phone: [facility] Work Phone: Start: 05-23-2024 Non-patient / Non-visit DO Jorge Luis dariela Ball Work Phone: [facility] Work Phone: Start: 05-23-2024 End: 05-23-2024 Admission to same day surgery center DO Tirso Ball Work Phone: [facility]gery [facility] [place] Start: 05-23-2024 End: 05-23-2024 ambulatory Andres Estrella Facility:[facility] Start: 05-17-2024 End: 05-17-2024 Patient encounter procedure DO Tirso Ball Work Phone: [facility] Work Phone: Start: 05-14-2024 End: 05-14-2024 Patient encounter procedure DO Tirso Ball Work Phone: [facility] Work Phone: Start: 05-08-2024 End: 05-08-2024 Patient encounter procedure DO Tirso Ball Work Phone: [facility] Work Phone: Start: 05-08-2024 End: 05-08-2024 ambulatory DO Tirso Ball Work Phone: [facility] Work Phone: Start: 05-08-2024 Encounter for other preprocedural examination Andres Estrella [facility] Start: 03-28-2024 End: 03-28-2024 Patient encounter procedure DO Tirso Ball Work Phone: [facility] [place] Work Phone: Start: 03-28-2024 End: 03-28-2024 ambulatory DO Tirso Ball Work Phone: [facility] Work Phone: Start: 03-27-2024 End: 03-27-2024 Patient encounter procedure DO Tirso Ball Work Phone: [facility] Work Phone: Start: 02-23-2024 End: 02-23-2024 Patient encounter procedure DO Tirso Ball Work Phone: [facility] Work Phone: Start: 02-10-2024 Non-patient / Non-visit DO Jorge Luis lyle [facility] Work Phone: [facility] Work Phone: Start: 01-31-2024 End: 01-31-2024 Patient encounter procedure DO Tirso Ball Work Phone: [facility] Work Phone: Start: 01-03-2024 End: 01-03-2024 Patient encounter procedure DO Tirso Ball Work Phone: [facility] Work Phone: Start: 11-01-2023 End: 11-01-2023 ambulatory Tirso Ball Other [employer] Other Start: 11-01-2023 Patient encounter procedure Tirso Ball [facility] Start: 10-10-2023 End: 10-10-2023 ambulatory Tirso Ball Other [facility] Other Start: 10-10-2023 Telephone encounter Tirso Ball [facility] Start: 09-12-2023 End: 09-12-2023 ambulatory Tirso Ball Other [facility] Other Start: 09-12-2023 Telephone encounter Tirso Ball FP [facility] Start: 08-04-2023 End: 08-04-2023 ambulatory Tirso Ball Other [facility] Other Start: 08-04-2023 Telephone encounter Tirso Ball [facility] Start: 07-15-2023 End: 07-15-2023 ambulatory Tirso Barney Other [facility] Other Start: 07-15-2023 Office outpatient vi sit 15 minutes Tirso Ector [facility] Start: 07-12-2023 End: 07-12-2023 ambulatory Tirso Barney Other [facility] Other Start: 07-12-2023 Telephone encounter Tirso ALEX G [facility] Start: 06-21-2023 End: 06-21-2023 ambulatory Tirso Barney Other [facility] Other Start: 06-21-2023 Telephone encounter Tirso Barney [facility] Start: 06-20-2023 End: 06-20-2023 ambulatory Tirso Barney Other [facility] Other Start: 06-20-2023 Telephone encounter Tirso Barney [facility] Start: 04-13-2023 End: 04-13-2023 ambulatory Tirso Barney Other [facility] Other Start: 04-13-2023 Office outpatient vi sit 15 minutes Tirso Barney [facility] Start: 02-16-2023 End: 02-17-2023 ambulatory SUNNY MENDEZ Facility:[facility] Start: 01-11-2023 End: 01-11-2023 ambulatory Tirso Barney Other [facility] Other Start: 01-11-2023 Office outpatient vi sit 15 minutes Tirso Barney [facility] Start: 01-06-2023 End: 01-07-2023 ambulatory AMBER DOYLE Facility:[facility] Start: 12-12-2022 End: 12-12-2022 ambulatory Tirso Barney Other [facility] Other Start: 12-12-2022 Telephone encounter Tirso Barney [facility] Start: 11-26-2022 End: 11-27-[address] JOANN BECKFORD Facility:[facility] Start: 10-22-2022 End: 10-23-[address] TIRSO BARNEY Facility:[facility] Start: 10-21-2022 End: 10-22-[address] TIRSO BARNEY Facility:[facility] Start: 10-13-[address] TIRSO BARNEY Facili ty:[facility] Start: 10-06-2022 End: 10-06-[address] BETH MARVIN . Facility:[facility] Start: 09-27-2022 Adult health examination Misael yessenia Barney Other [facility] Other Start: 08-19-2022 End: 08-19-2022 ambulatory Lloyd Walsh Other [facility] Other Start: 08-19-2022 Office outpatient vi sit 15 minutes Lloyd Walsh [facility] Start: 08-05-2022 End: 08-05-2022 ambulatory Gerson Ochoa Other [facility] Other Start: 08-05-2022 Office outpatient vi sit 15 minutes Gerson Ochoa [facility] [place] Start: 07-26-2022 (Procedure) Short Gerson Ochoa [facility] Start: 07-26-2022 End: 07-26-2022 ambulatory Gerson Ochoa Other [facility] Other Start: 07-15-2022 End: 07-15-2022 ambulatory Gerson Ochoa Other [facility] Other Start: 07-15-2022 Telephone encounter Gerson ALEX [employer] Start: 07-13-2022 End: 07-13-2022 ambulatory Gerson Ochoa Other [facility] Other Start: 07-13-2022 Office outpatient ne w 45 minutes Gerson Ochoa [facility] [place] Start: 07-05-2022 End: 07-05-2022 Patient encounter procedure MD Lloyd Walsh Work Phone: [facility]-MRI [address] Start: 05-06-2022 End: 05-07-[address] TIRSO BARNEY Facility:[facility] Start: 03-24-2022 End: 04-22-[address] TIRSO BARNEY Facility:[facility] Start: 03-16-2022 End: 03-17-[address] TIRSO BARNEY Facility:[facility] Start: 10-31-2018 End: 10-31-2018 Patient encounter procedure [facility] Procedures Date Procedure Procedure Detail Performing Clinician Start: 11-05-2024 Plain X-ray of right shoulder Tirso Ball DO Work Phone: Start: 09-21-2024 CT of right shoulder Be [...] ant neoplasm of breast Tirso Barney Other Plan of Treatment Date Care Activity Detail Author Start: 11-05-2024 Plain X-ray of right shoulder XR shoulder RT min 2V* [facility] Start: 11-05-2024 XR Shoulder - right Views [facility] Start: 09-11-2024 Plain X-ray of right shoulder XR shoulder RT min 2V* [facility] Start: 09-11-2024 XR Shoulder - right Views [facility] Start: 05-23-2024 Referral to home hea lt care service [facility] Start: 05-23-2024 Referral to occupati onal therapist [facility] Start: 05-23-2024 End: 05-23-2024 [facility] Start: 05-08-2024 MRSA Culture MRSA Culture [facility] Comprehensive metabo lic 2000 panel - Serum or Plasma [facility] CT Shoulder - right WO contrast [facility] Methicillin resistan t Staphylococcus aureus [Presence] in Unspecified specimen by Organism specific culture [facility] MR Shoulder - right WO contrast [facility] Patient Education Know your Meds [facility] Work Phone: [facility] Immunizations Immunization Date Immunization Notes Care Provider Ericka ahmadi 08-22-2023 COVID-19 (PFIZER) 12Y and older DO Tirso Barney Work Phone: [facility] 07-15-2023 influenza, high dose seasonal, preservative-free Tirso Barney Other [facility] Other 07-15-2023 influenza virus vaccine, unspecified formulation DO Tirso Barney Work Phone: [facility] 09-27-2022 Prevnar [address] [facility] 10-21-2022 COVID-19 mRNA Bivale nt Booster (Pfizer) DO [employer] Work Phone: [facility] 09-01-2021 influenza virus vaccine, split virus (incl. purified surface antigen) Tirso Barney Other [facility] [employer] Other 09-01-2021 influenza virus vaccine, unspecified formulation DO [employer] Work Phone: [facility] 08-19-2021 COVID-19 mRNA, Comirnaty (Pfizer) DO [employer] Work Phone: [facility] 01-24-2021 COVID-19 mRNA-1273 (Moderna) DO [employer] Work Phone: [facility] 12-27-2020 COVID-19 mRNA-1273 (Moderna) DO [employer] Work Phone: [facility] 07-01-2020 influenza virus vaccine, split virus (incl. purified surface antigen) Tirso Barney Other [facility] [employer] Other 07-01-2020 influenza virus vaccine, unspecified formulation DO [employer] Work Phone: [facility] 08-05-2018 influenza virus vaccine, split virus (incl. purified surface antigen) Tirso Barney Other [facility] [employer] Other 08-05-2018 influenza virus vaccine, unspecified formulation DO [employer] Work Phone: [facility] pneumococcal Conjuga te, unspecified formulation; Translations: [Need for prophylactic vaccination against Streptococcus pneumoniae (pneumococcus)] Tirso Barney Other [facility] [employer] Other Payers Date Payer Category Payer Self-pay 1958 Medicare [id number] 2.1 [id number] 1958 Unknown [id number] 1955 Unknown [id number] 2.16.84 0.1.877403.3.579.2.593 1955 Unknown [id number] 2.16.84 0.1.418656.3.579.2.593 1955 Unknown [id number] 2.16.84 0.1.176693.3.579.2.593 1955 Unknown [id number] 2.16.84 0.1.505164.3.579.2.593 1955 Unknown [id number] 2.16.84 0.1.221815.3.579.2.593 1955 Unknown [id number] 2.16.84 0.1.470311.3.579.2.593 1955 Unknown [id number] 2.16.84 0.1.609885.3.579.2.593 1955 Unknown [id number] 2.16.84 0.1.889036.3.579.2.593 1955 Unknown [id number] 2.16.84 0.1.725354.3.579.2.593 1955 Unknown [id number] 2.16.84 0.1.617262.3.579.2.593 Medicare Medicare [id number] Unknown [id number] 2.16.8 40.1.982841.3.579.2.531 Unknown [id number] 2.16.8 40.1.377899.3.579.2.531 Unknown [id number] 2.16.8 40.1.001376.3.579.2.531 Unknown [id number] 2.16.8 40.1.184572.3.579.2.531 Unknown [id number] 2.16.8 40.1.527854.3.579.2.531 Unknown [id number] 2.16.8 40.1.341099.3.579.2.531 Unknown [id number] 2.16.8 40.1.508042.3.579.2.531 Unknown [id number] 2.16.8 40.1.544401.3.579.2.531 Unknown [id number] 2.16.8 40.1.945287.3.579.2.531 Unknown [id number] 2.16.8 40.1.589093.3.579.2.531 Unknown [id number] 2.16.8 40.1.607629.3.579.2.531 Unknown [id number] 2.16.8 40.1.597191.3.579.2.531 Social History Date Type Detail Facility Tobacco smoking status NHIS Unknown if ever smoked [facility] Work Phone: Start: 1955 Sex Assigned At Female F [facility] Sex Assigned At Sex Assigned At [facility] [employer] Other Start: 05-08-2024 End: 05-23-2024 Tobacco smoking status NHIS Never smoked tobacco (finding) [facility] Start: 09-11-2024 End: 02-27-2025 Sex Female (finding) [facility] Medical Equipment Procedure Code Equipment Code Equipment Origin al Text Equipment Identifier Dates SHOULDER CAP RSA -PERF REV LAT FDA Start: 05-23-2024 Reverse shoulder prosthesis base plate ()[id number] FDA Start: 05-23-2024 Orthopaedic bone screw, non-bioabsorbable, non-sterile ()[id number] FDA Start: 05-23-2024 Orthopaedic bone screw, non-bioabsorbable, non-sterile ()[id number] FDA Start: 05-23-2024 Orthopaedic bone screw, non-bioabsorbable, non-sterile ()[id number] FDA Start: 05-23-2024 Orthopaedic bone screw, non-bioabsorbable, non-sterile ()[id number] FDA Start: 05-23-2024 Polyethylene rev erse shoulder prosthesis cup ()[id number] FDA Start: 05-23-2024 Coated shoulder humeral stem prosthesis ()[id number] FDA Start: 05-23-2024 Reverse shoulder prosthesis head ()[id number] FDA Start: 05-23-2024 SHOULDER CAP RSA -PERF [...] Hypertension acute June 1:10pm Lumbar spondylosis acute Septem 2023 1:10pm Major depression acute Junembe r 2023 1:10pm Obesity acute June 29, [...] of right rotator cuff acute August 12:12pm [facility] Work Phone: 1(666) 475-249807-31-2024 Evaluation note* Diagnosis Onset Date Resolution Status Admit Date Status post reverse arthropl asty of right shoulder May 23, 2024 acute August 27, 2024 2:30pm Traumatic tear of right rota tor cuff acute August 27 2:30pm Status post reverse arthropl asty of right shoulder May 23, 2024 acute September 11, 2024 12:12pm Traumatic tear of right rota tor cuff acute September 11, 024 12:12pm Status post reverse arthropl asty of right shoulder May 23, 2024 acute October 01, 2024 1:42pm Traumatic tear of right rota tor cuff acute October 01 1:42pm Gastroesophageal reflux dise ase with esophagitis without hemorrhage acute October 30 1:16pm Hypercholesterolemia acute Mario bill 2024 1:16pm Hypertension acute October 30, 2024 1:16pm Lumbar spondylosis acute Octuar y 2024 1:16pm Major depression acute October 30, 2024 1:16pm Medicare annual wellness vis it, subsequent acute October 30 1:16pm Obesity acute October 30, 2 025 1:16pm Opiate analgesic use agreeme nt exists acute October 30 1:16pm Screening mammogram for [facility] cancer acute October 30 1:16pm Status post reverse arthropl asty of right shoulder May 23, 2024October 30 2 025 1:16pm [facility] Work Phone: 1([phone]) 192-461807-31-2024 Evaluation note* Diagnosis Onset Date Resolution Status Admit Date Status post reverse arthropl asty of right shoulder May 23, 2024 acute August 27, 2024 2:30pm Traumatic tear of right rota tor cuff acute August 27 2:30pm Status post reverse arthropl asty of right shoulder May 23, 2024September 11th, 2024 12:12pm Traumatic tear of right rota tor cuff acute September 11, 2 024 12:12pm Status post reverse arthropl asty of right shoulder May 23, 2024 acute October 01, 2024 1:42pm Traumatic tear of right rota tor cuff acute October 01 1:42pm Gastroesophageal reflux dise ase with esophagitis without hemorrhage acute October 30 1:16pm Hypercholesterolemia acute Mario 2024 1:16pm Hypertension acute October 30, 2024 1:16pm [...] arthropl asty of right shoulder May 23, 2024October 30, 025 1:16pm Unsteady acute October 30 2 025 1:16pm Status post reverse arthropl asty of right shoulder May 23, 2024 acute November 05, 2024 2:12pm Traumatic tear of right rota tor cuff acute November 05 2:12pm [facility] Work Phone: 1(803) 251-603007-31-2024 Evaluation note* Diagnosis Onset Date Resolution Status Admit Date Status post reverse arthropl asty of right shoulder May 23, 2024 acute October 01, 2024 1:42pm Traumatic tear of right rota tor cuff acute October 01 1:42pm Gastroesophageal reflux dise ase with esophagitis without hemorrhage acute October 30 1:16pm Hypercholesterolemia acute 2024 1:16pm Hypertension acute October 30, 2024 1:16pm Lumbar spondylosis acute 2024 1:16pm Major depression acute October 30, 2024 1:16pm Medicare annual wellness vis it, subsequent acute October 30 1:16pm Obesity acute October 30, 2 025 1:16pm Opiate analgesic use agreeme nt exists acute October 30 1:16pm Screening mammogram for [facility] cancer acute October 30 1:16pm Status post reverse arthropl asty of right shoulder May 23, 2024 acute October 30 025 1:16pm Unsteady acute October 30 025 1:16pm Status post reverse arthropl asty of right shoulder May 23, 2024 acute November 05, 2024 2:12pm Traumatic tear of right rota tor cuff acute November 05 2:12pm [facility] Work Phone: 1([phone]) 469-906401-09-2024 Evaluation note* Encounter Date Diagnosis Assessment Notes [...] patient on monthly SBE and yearly mammograms. [facility] Other 12-18-2023 Evaluation note* Encounter Date Diagnosis Assessment Notes Treatment Notes Treatment Clinical Notes Sep, Lumbar spondylosis (ICD-10 - M47.816) [facility] Other 11-20-2023 Evaluation note* Encounter Date Diagnosis Assessment Notes Treatment Notes Treatment Clinical Notes Aug, Morbid (severe) obesity due to excess calories (ICD-10 - E66.01) [facility] Other 10-12-2023 Evaluation note* Encounter Date Diagnosis Assessment Notes Treatment Notes Treatment Clinical Notes Jul, Morbid (severe) obesity due to excess calories (ICD-10 - E66.01) [facility] Other 09-22-2023 Evaluation note* Encounter Date Diagnosis [...] 30. Continue calorie/portion restriction, exercise and [employer] [facility] Other 09-19-2023 Evaluation note* Encounter Date Diagnosis Assessment Notes Treatment Notes Treatment Clinical Notes Jun, Lumbar spondylosis (ICD-10 - M47.816) [facility] Other 08-29-2023 Evaluation note* Encounter Date Diagnosis Assessment Notes Treatment Notes Treatment Clinical Notes May, Morbid (severe) obesity due to excess calories (ICD-10 - E66.01) [facility] Other 08-28-2023 Evaluation note* Encounter Date Diagnosis Assessment Notes Treatment Notes Treatment Clinical Notes May, Morbid (severe) obesity due to excess calories (ICD-10 - E66.01) [facility] Other 06-21-2023 Evaluation note* Encounter Date Diagnosis [...] index [BMI] 40.0-44.9, adult (ICD-10 - Z68.41) [facility] Other 04-27-2023 NotePROCEDURE: XR FOOT RT MIN [...] Electronically authenticated by: MAURILIO MENDEZ Date: 2023-02-17 07:42[facility]03-21-2023 Evaluation note* Encounter Date Diagnosis [...] G57.11) Avoid tight clothing. Decrease weight Reassure [facility] Other 03-17-2023 NotePROCEDURE: XR FOOT RT MIN [...] Electronically authenticated by: JOANN BECKFORD Date: 2023-01-07 14:50[facility]02-19-2023 Evaluation note* Encounter Date Diagnosis Assessment Notes Treatment Notes Treatment Clinical Notes Nov, Lumbar spondylosis (ICD-10 - M47.816) [facility] Other 02-03-2023 NotePROCEDURE: XR FOOT RT MIN [...] Electronically authenticated by: JOANN BECKFORD Date: 2022-11-26 12:56[facility]10-27-2022 Evaluation note* Encounter Date Diagnosis Assessment [...] Jul, Lumbar radiculopathy, right (ICD-10 - M54.16) [facility] Other 10-13-2022 Evaluation note* Encounter Date Diagnosis [...] note writ ten by Akshat Yoon MA, Light Equipment Operator. Edited and approved by Dr. Gerson Ochoa MD. [facility] Other 09-20-2022 Evaluation note* Encounter Date Diagnosis [...] note writ ten by Akshat Yoon MA, Light Equipment Operator. Edited and approved by Dr. Gerson Ochoa [...] negative findings were considered in medical decision-making. [facility] [employer] Other Evaluation noteNo assessment information available [facility] Work Phone: Evaluation [facility]No [facility] [employer] Other Evaluation note* Diagnosis Onset Date Resolution [...] Traumatic tear of right rotator cuff acute [facility] Work Phone: Evaluation note* Diagnosis Onset Date Resolution Status Traumatic tear of right rotator cuff acute Pre-op exam noneactive Gastroesophageal reflux dise ase with esophagitis without hemorrhage acute Hypertension acute Lumbar spondylosis acute Major depression acute Obesity acute Opiate analgesic use agreement exists acute Traumatic tear of right rotator cuff acute [facility] Work Phone: Evaluation note* Diagnosis Onset [...] Traumatic tear of right rotator cuff acute [facility] Work Phone: Evaluation note* Diagnosis Onset [...] Traumatic tear of right rotator cuff acute [facility] Work Phone: Evaluation note* Diagnosis Onset [...] Traumatic tear of right rotator cuff acute [facility] Work Phone: Evaluation note* Diagnosis Onset Date Resolution Status Admit Date Gastroesophageal reflux dise ase with esophagitis without hemorrhage acute February 27, 2025 1:34pm Hypercholesterolemia acute February 27, 2025 1:34pm Hypertension acute February 27 1:34pm Major depression acute February 27, 2025 1:34pm Obesity acute February 27, 2025 1:34pm Opiate analgesic use agreeme nt exists acute February 27, 2025 1:34pm Status post reverse arthropl asty of right shoulder May 23, 2024 acute February 27, 2025 1:34pm Unsteady acute February 27, 2025 1:34pm [facility] Work Phone: [facility] general Narrative - Reported* Type Description Date Medical History Arthritis Medical History gall bladder disease Medical History hypertension Medical History obesity Medical History chronic depression Medical History anxiety Surgical History gastric bypass Surgical History gallbladder Hospitalization History see surgical hx [facility] Other Hisjlxy general Narrative - Reported* Type Description Date [...] SURGERY 2004 Hospitalization History see surgical hx [facility] Other Summary Purpose Family History Relationship Condition [...] [facility]AS[facility] Reason for Visit Admit Date [...] [facility] Status post reverse arthroplasty of righ t shoulder August 27, 2024 2:30pm Traumatic tear of right rotator cuff Aug 2:30pm Status post reverse arthroplasty of righ t shoulder September 11, 2024 12:12pm Traumatic tear of right rotator cuff Nov [facility]2023 12:12pm Chief Complaint Admit Date R [...] 1:42pm Traumatic tear of right rotator cuff Sep 1:42pm Gastroesophageal reflux dise ase with esophagitis without hemorrhage October 30, 2024 1:16pm Hypercholesterolemia October 30, 2024 1 :16pm Hypertension October 30, 2024 1: 16pm Lumbar spondylosis October 30, 2024 1: 16pm Major depression October 30, 2024 1: 16pm Medicare annual wellness visit, subseque nt October 30, 2024 1:16pm Obesity October 30, 2024 1: 16pm Opiate analgesic use agreement exists [facility] 2024 1:16pm Screening mammogram for breast cancer [facility] 20[facility] 1:16pm Status post reverse arthroplasty of righ t shoulder October 30, 2024 1:16pm Chief Complaint Admit Date R Reverse Total [...] month f/u October 30, 2024 1: 16pm Z96.611 - Presence of right artificial s [place] olivia November 05, 2024 8:11am 10 WEEKS November 05, 2024 2 :12pm Reason for Visit Admit Date Status post reverse arthroplasty of righ t shoulder August 27, 2024 2:30pm Traumatic tear of right rotator cuff Aug 2:30pm Status post reverse arthroplasty of righ t shoulder September 11, 2024 12:12pm Traumatic tear of right rotator cuff Aug 12:12pm Status post reverse arthroplasty of righ t shoulder October 01, 2024 1:42pm Traumatic tear of right rotator cuff Sep 1:42pm Gastroesophageal reflux dise ase with esophagitis [...] righ t shoulder October 30, 2024 1:16pm Unsteady October 30, 2024 1: 16pm Status post reverse arthroplasty of righ t shoulder November 05, 2024 2:12pm Traumatic tear of right rotator cuff Ronnie rangel 2024 2:12pm Chief Complaint Admit Date 6 WEEKS August 27, 2024 2 :30pm [...] month f/u October 30, 2024 1: 16pm Z96.611 - Presence of right artificial s [place] olivia November 05, 2024 8:11am 10 WEEKS November 05, 2024 2 :12pm Chief Complaint Admit Date z96.611 s49.91xa September 21, 2024 12:25pm CT RESULTS October 01, 2024 1 :42pm Z96.611 S46.011D October 01, 2024 2 :36pm 4 month f/u October 30, 2024 1: 16pm Z96.611 - Presence of right artificial s [place] olivia November 05, 2024 8:11am 10 WEEKS November 05, 2024 2 :12pm S/P R Shoulder Reverse Arthroplasty [facility] 2024 1:45pm Reason for Visit Admit Date Status post reverse arthroplasty of righ t shoulder October 01, 2024 1:42pm Traumatic tear of right rotator cuff Dec ember 2023 1:42pm Gastroesophageal reflux dise ase with esophagitis without hemorrhage October 30, 2024 1:16pm Hypercholesterolemia October 30, 2024 1 :16pm Hypertension October 30, 2024 1: 16pm Lumbar spondylosis October 30, 2024 1: 16pm Major depression October 30, 2024 1: 16pm Medicare annual wellness visit, subseque nt October 30, 2024 1:16pm Obesity October 30, 2024 1: 16pm Opiate analgesic use agreement exists [facility] 2024 1:16pm Screening mammogram for breast cancer [facility] 2024 1:16pm Status post reverse arthroplasty of righ t shoulder October 30, 2024 1:16pm Unsteady October 30, 2024 1: 16pm Status post reverse arthroplasty of righ t shoulder November 05, 2024 2:12pm Traumatic tear of right rotator cuff [facility] 2024 2:12pm Chief Complaint Admit Date S/P R Shoulder Reverse Arthroplasty [facility] 2024 1:45pm 3 month f/u-HIGH RISK February 27, 2025 1:34 pm Reason for Visit Admit Date Gastroesophageal reflux dise ase with esophagitis without hemorrhage February 27, 2025 1:34pm Hypercholesterolemia February 27, 2025 1:34p m Hypertension February 27, 2025 1:34pm Major depression February 27, 2025 1:34pm Obesity February 27, 2025 1:34pm Opiate analgesic use agreement exists Ma y 2024 1:34pm Status post reverse arthroplasty of righ t shoulder February 27, 2025 1:34pm Unsteady February 27, 2025 1:34pm Additional Source Comments INFORMATION SOURCE (unrecogn ized section and content) DATE CREATED AUTHOR 11/01/2018 [facility] DATE CREATED AUTHOR AUTHOR'S ORGANIZ ATION 02/19/2023 [facility] DATE CREATED AUTHOR AUTHOR'S ORGANIZ ATION 12/22/2024 [facility] Care Teams (unrecognized sec tion and content) Team Status: Active Member Role Status Dates Tirso Barney DO Primary Care Provider Active Team Status: Inactive Member Role Status Dates Tirso Barney DO Primary Care Provider Active Start: August 27, 2024 End: August 27, 2024 Andres Estrella , Attending Provider Active St art: August 27, [...] 2024 End: October 30, 2024 Team Status: Inactive Member Role Status Dates Tirso Barney DO Primary Care Provider Active Start: November 05, 2024 End: November 05, 2024 Andres Estrella DO Attending Provider Active St art: November 05, 2024 End: November 05, 2024 Team Status: Active Member Role Status Dates Tirso Barney DO Primary Care Provide r, Attending Provider Active Start: November 05, 2024 Team Status: Active Member Role [...] 2024 End: May 08, 2024 Andres Estrella DO Attending Provider Active [...] 2024 End: May 17, 2024 Andres Estrella DO Attending Provider Active St art: May 17, 2024 End: May 17, 2024 Team Status: Inactive Member Role Status Dates Tirso Barney DO Primary Care Provider Active Start: May 23, 2024 End: May 23, 2024 Andres Estrella , DO Attending Provider Active St art: May 23, 2024 End: May 23, 2024 Team Status: Active Member Role Status Dates Tirso Barney DO Primary Care Provider Active Start: May 23, 2024 Andres Estrella DO Attending Provider, Other Provider Active Start: May 23, 2024 Team Status: Inactive Member Role Status Dates Tirso Barney DO Primary Care Provider Active Start: June 05, 2024 End: June 05, 2024 Andres Estrella DO Attending Provider Active [...] 2024 Team Status: Inactive Member Role Status Siobhan Barney DO Primary Care Provider Active Start: [...] 2024 Team Status: Inactive Member Role Status Siobhan Barney DO Primary Care Provide r, Attending Provider Active Start: June 29, 2024 End: June 29, 2024 Team Status: Inactive Member Role Status Siobhan Barney DO Primary Care Provider Active Start: July 17, 2024 End: July 17, 2024 Andres Estrella DO Attending Provider Active St art: July 17, 2024 End: July 17, 2024 Team Status: Active Member Role Status Dates Tirso Barney DO Primary Care Provider Active Start: September 11, 2024 Andres Estrella DO Attending Provider Active St art: September 11, 2024 Team Status: Active Member Role Status Siobhan Barney DO Primary Care Provider Active Start: November 05, 2024 Andres Estrella , Attending Provider Active St art: November 05, 2024 Team Status: Inactive Member Role Status Siobhan Barney DO Primary Care Provider Active Start: December 03, 2024 End: December 03, 2024 Andres Estrella DO Attending Provider Active St art: December 03, 2024 End: December 03, 2024 Team Status: Inactive Member Role Status Siobhan Barnye DO Primary Care Provide r, Attending Provider Active Start: February 27, 2025 End: February 27, 2025 Goals (unrecognized section and content) Goals may [...] BE BASED ON THE PRIMARY CLINICAL RECORDS. [employer] provides no warranty or guarantee of the accuracy or completeness of information in this document.
--- NOTE | 2025-03-13 17:30 | XR_ITS ---
The [address] [address] Patient Name: CHELI BARAKAT MRN: [id number] date: 1955 Sex: F Assigned Patient Location: ER Current Patient Location: ER Accession/Order Number: [id number] Exam Date: 03/13/2025 17:40 Report Date: 03/13/2025 17:41 At the request of: KILLIAN RODAS NP Procedure: XR hip LT 2V w/ pelvis Single view pelvis with 2 views left hip HISTORY: Fell Tuesday. Left hip pain Adequate bony alignment without acute displaced fracture. Spurring the greater trochanters. Adequate hip joint spaces. Adequate SI joints. Lower lumbar degeneration. XR/XR hip LT 2V w/ pelvis IMPRESSION: No acute displaced fracture Impression dictated by: Carlos Silva M.D. 03/13/2025 5:41 PM Dictation Location: [place] [address] Electronically authenticated by: [id number] Y Date: 03/13/2025 17:41
--- NOTE | 2025-03-13 17:30 | XR_ITS ---
The [address] [address] Patient Name: CHELI BARAKAT MRN: [id number] date: 1955 Sex: F Assigned Patient Location: ER Current Patient Location: ER Accession/Order Number: [id number] Exam Date: 03/13/2025 17:42 Report Date: 03/13/2025 17:43 At the request of: KILLIAN RODAS NP Procedure: XR femur LT 2V 2 views leftfemur plain film COMPARISON: None HISTORY: Fell. Left hip pain ACUTE FINDINGS: None DEGENERATIVE CHANGE: Greater trochanter spurring SOFT TISSUE FINDINGS: Unremarkable JOINT EFFUSION: None POSTOP CHANGES: None BONE MINERALIZATION: Adequate XR/XR femur LT 2V IMPRESSION: No acute displaced fracture Impression dictated by: Carlos Silva M.D. 03/13/2025 5:43 PM Dictation Location: [place] [address] Electronically authenticated by: [id number] Y Date: 03/13/2025 17:43
--- NOTE | 2025-03-13 17:30 | XR_ITS ---
The [address] [address] Patient Name: CHELI BARAKAT MRN: [id number] date: 1955 Sex: F Assigned Patient Location: ER Current Patient Location: ER Accession/Order Number: [id number] Exam Date: 03/13/2025 17:41 Report Date: 03/13/2025 17:42 At the request of: KILLIAN RODAS NP Procedure: XR shoulder RT min 2V 3 views right shoulder plain film HISTORY: Fell. Right shoulder pain COMPARISON: None ACUTE FINDINGS: None DEGENERATIVE CHANGE: Mild SOFT TISSUE FINDINGS: Unremarkable JOINT EFFUSION: None POSTOP CHANGES: Uncomplicated right shoulder arthroplasty BONY MINERALIZATION: Adequate XR/XR shoulder RT min 2V IMPRESSION: Uncomplicated right shoulder arthroplasty. No acute displaced fracture. Impression dictated by: Carlos Silva M.D. 03/13/2025 5:42 PM Dictation [facility] Electronically authenticated by: [id number] Y Date: 03/13/2025 17:42
--- NOTE | 2025-03-13 17:38 | CT_ITS ---
The [address] [address] Patient Name: CHELI BARAKAT MRN: [id number] date: 1955 Sex: F Assigned Patient Location: ER Current Patient Location: ER Accession/Order Number: [id number] Exam Date: 03/13/2025 18:22 Report Date: 03/13/2025 18:24 At the request of: KILLIAN RODAS NP Procedure: CT cervical spine wo con CT Cervical Spine withoutcontrast TECHNIQUE: Axial imaging with 2-D and 3-D reconstruction. The CT exam was performed using one or more the following dose reduction techniques: Automated exposure control, adjustment of the MA and/or Kv according to patient size, or use of the iterative reconstruction technique. COMPARISON: None HISTORY: Fell. Neck pain POST SURGERY CHANGES: None BONY ALIGNMENT: Straightening BONY SPINAL CANAL: Patent central bony canal FRACTURE: No acute displaced fracture BONY LESIONS: None SOFT TISSUES: Unremarkable DEGENERATIVE CHANGES: Multilevel degeneration LUNG APICES: Unremarkable ADDITIONAL FINDINGS: CT/CT cervical spine wo con IMPRESSION: No acute process Impression dictated by: Carlos Silva M.D. 03/13/2025 6:24 PM Dictation Location: [place] [address] Electronically authenticated by: [id number] Y Date: 03/13/2025 18:24
--- NOTE | 2025-03-13 17:38 | CT_ITS ---
The [address] [address] Patient Name: CHELI BARAKAT MRN: [id number] date: 1955 Sex: F Assigned Patient Location: ER Current Patient Location: Accession/Order Number: [id number] Exam Date: 03/13/2025 18:20 Report Date: 03/13/2025 18:22 At the request of: KILLIAN RODAS NP Procedure: CT head/brain wo con Unenhanced head CT TECHNIQUE: Contiguous axial imaging of the head. The CT exam was performed using one or more the following dose reduction techniques: Automated exposure control, adjustment of the MA and/or Kv according to patient size, or use of the iterative reconstruction technique. COMPARISON: None HISTORY: Fell. Hip and shoulder pain. VENTRICLES: Within normal limits ATROPHY: Mild atrophy BRAIN PARENCHYMA: Decreased density of the white matter is most consistent with chronic small vessel disease. HEMORRHAGE: None HERNIATION: No mass effect or herniation INFARCTION: No recent vascular distribution infarction is seen. EXTRA-AXIAL FLUID COLLECTIONS None MIDBRAIN: Unremarkable SHERINE: Unremarkable MEDULLA: Unremarkable SINUSES: Unremarkable ORBITS: Grossly unremarkable MASTOIDS: Unremarkable BONY STRUCTURES Intact ADDITIONAL FINDINGS: CT/CT head/brain wo con IMPRESSION: No acute findings. Impression dictated by: Carlos Silva M.D. 03/13/2025 6:22 PM Dictation Location: [place] [address] Electronically authenticated by: [id number] Y Date: 03/13/2025 18:22
== END 2025-03-13 19:05 | disposition home or self-care (01) ==
PROVIDERS: Emergency Provider Emergency Medicine; PCP Internal Medicine
DX: S46.911A Strain of unspecified muscle, fascia and tendon at shoulder and upper arm level, right arm, initial encounter (principal); W17.89XA Other fall from one level to another, initial encounter; Z79.899 Other long term (current) drug therapy; M54.2 Cervicalgia; M25.552 Pain in left hip
CPT/HCPCS: 70450; 72125; 73030; 73502; 73552; 99284

== ENCOUNTER 2025-07-11 12:29 | Outpatient (RCR) | payer MEDICARE, OTHER, SELFPAY | END 2025-07-27 13:17 | disposition home or self-care (01) | LOC: PT 12:29 | PROVIDERS: PCP Internal Medicine; Visit Provider Physician Assistant | DX: R26.89 Other abnormalities of gait and mobility (principal) | CPT/HCPCS: 97110; 97112; 97162 ==